=== PATIENT | female | born 2000 | race Hispanic/Latino ===

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

== ENCOUNTER 2024-10-23 05:59 | Emergency (ER) | payer OTHER, SELFPAY ==
--- OUTSIDE RECORDS SUMMARY | 2024-10-23 06:13 | XMS REPORT | Continuity of Care Document ---
Author Name Unknown Address [address] [facility] [address] [place] [address] [facility] [place] Address [address] [facility] [address] [place] [address] Care Team Providers Care Bog Cutter Name Role Phone Debbie Cuadra Primary Care Physicia n Betsey Hay MA Attending Clinician KE Kern Attending Clinician Unavail able Ke Mcgee Attending Clinician + Doctor Unassigned, [place] Attending Clinician U DEBBIE Lujan Attending Clinician CATHERINE Peters Attending Clinician Unav marcie Ramirez MD, Catherine Boggs Attending Clinician + Cam Gallagher MD Attending Clinician [phone] Janice EDMONDSON, Kaley Hansen Attending Clinicia n CELESTE CARTY Attending Clinician Unavailable Debbie Cuadra Attending Clinician + THU MONTIEL Attending Clinician Unavailable THU MONTIEL Attending Clinician Unavailable Ultrasound, [facility] Attending Clinician Unavaila ble Lab, [facility] Attending Clinician Unavailable Aster MSN, Corina Khan Attending Clinician [phone] [facility] Room Attending Clinician Unavailab Marcos MD, Ranjit Hamilton Attending Clinician [phone] CORINA REN Attending Clinician Jaqueline rand 2, [facility] Us Room Attending Clinician Octavio Olivia MD Attending Clinician [phone] OCTAVIO HARGROVE Attending Clinician Unavailable OCTAVIO HARGROVE Attending Clinician Unavailable VIET KHOURY Attending Clinician Unavailab rand Visit, [facility] Nurse Attending Clinician Unava ilViet Steward Attending Clinician + [phone] Po, [facility] Attending Clinician UnaMorelia Peters Attending Clinician [phone] MORELIA SANTIAGO Attending Clinician Unavailable Alexys Gallardo MD Attending Clinician [phone], [facility] Room Attending Clinician Cody Bartlett MD Attending Clinician [phone] Alexys Kim MD Attending Clinician + [phone] Raheem Dunn MD Attending Clinician + RAHEEM DUNN Attending Clinician UnaCODY Pedroza Attending Clinician Unavailable Lab, [facility] Attending Clinician Unavailable Salome Toavr Attending Clinician [phone], [facility] Room Attending Clinician Jonatan Plaza MD, Berenice Lugo Attending Clinician Katie Sparks MD Attending Clinician [phone] CATHERINE RAMIREZ Admitting Clinician UnaCatherine Mac MD Admitting Clinician + Alexys Gallardo MD Admitting Clinician [phone] Payers Payer Name Policy Type Policy Number Effective Date Expirati on Date Source [facility] [id number] 2019 00:00:00 Problems Condition Name Condition Details Condition Category Status Onset Date Resolution Date Last Treatment Date Treating Clinician Comments Source Nexplanon in place Nexplanon in place Disease Active 10-31 00:00: 00 [facility] Other general counseling and advice for contracept mat management Other general counseling and advice for contracept mat management Disease Active 2022-08 00:00: 00 [facility] Thrombocyt openia Thrombocyt openia Disease Active 2022-08 00:00: 00 [facility] Acute blood loss anemia Acute blood loss anemia Disease Active 2022-08 00:00: 00 [facility] Rubella equivocal status, antepartum Rubella equivocal status, antepartum Disease Active 2022-08 00:00: 00 [facility] Anemia of mother in , antepartum Anemia of mother in , antepartum Disease Active 08-10 00:00: 00 [facility] History of depression History of depression Disease Active 03-09 00:00: 00 Overview: Formattin g of this note might be different from the original. Reports d/c zoloft 02/20/19 [facility] Nausea and vomiting during Nausea and vomiting during Disease Active 03-09 00:00: 00 [facility] No known active problems No known active problems Disease [facility] Anemia, Anemia, Disease Resolve d 2022-08 00:00: 00 2023-09-09 00:00:00 2023-09-09 09:29:20 [facility] Obstetrica l laceration Obstetrica l laceration Disease Resolve d 2022-08 00:00: 00 2023-07-05 00:00:00 2023-07-05 10:29:17 [facility] Indication for care in labor or delivery Indication for care in labor or delivery Disease Resolve d 2022-08 00:00: 00 2023-07-05 00:00:00 2023-07-05 10:30:21 [facility] High-risk in third trimester High-risk in third trimester Disease Resolve d 2022-08 00:00: 00 2023-07-05 00:00:00 2023-07-05 10:30:28 [facility] 39 weeks gestation of 39 weeks gestation of Disease Resolve d 2022-08 00:00: 00 2023-07-05 00:00:00 2023-07-05 10:30:37 [facility] Anemia affecting in third trimester Anemia affecting in third trimester Disease Resolve d 2022-08 00:00: 00 2023-07-05 00:00:00 2023-07-05 10:30:35 [facility] History of gestationa l hypertensi on History of gestationa l hypertensi on Disease Resolve d 2022-08 00:00: 00 2023-07-05 00:00:00 2023-07-05 10:30:25 [facility] History of vacuum extraction assisted delivery History of vacuum extraction assisted delivery Disease Resolve d 2022-08 00:00: 00 2023-07-05 00:00:00 2023-07-05 10:30:23 [facility] (spontaneo us vaginal delivery) (spontaneo us vaginal delivery) Disease Resolve d 2020-0 3-16 00:00: 00 2023-07-05 00:00:00 2023-07-05 10:29:21 [facility] Single live Single live Disease Resolve d 2020-0 3-16 00:00: 00 2023-07-05 00:00:00 2023-07-05 10:30:14 [facility] Anemia of mother in , condition Anemia of mother in , condition Disease Resolve d 2020-0 4-30 00:00: 00 2023-02-07 00:00:00 2023-02-07 12:12:10 [facility] Well woman exam Well woman exam Disease Resolve d 2020-0 3-15 00:00: 00 2022-10-04 00:00:00 2022-10-04 10:16:46 [facility] Vacuum-ass isted vaginal delivery Vacuum-ass isted vaginal delivery Disease Resolve d 2020-0 3-16 00:00: 00 2019-12-03 00:00:00 2019-12-03 09:20:36 [facility] 39 weeks gestation of 39 weeks gestation of Disease Resolve d 2019-0 3-15 00:00: 00 2019-12-03 00:00:00 2019-12-03 09:20:04 [facility] Anemia of mother in , antepartum Anemia of mother in , antepartum Disease Resolve d 2019- 1-06 00:00: 00 2019-12-03 00:00:00 2019-12-03 09:20:22 [facility] Circumvall ate placenta Circumvall ate placenta Disease Resolve d 1-03 00:00: 00 2019-12-03 00:00:00 2019-12-03 09:20:24 Overview: Serial usg scheduled [facility] Primigravi da in second trimester Primigravi da in second trimester Disease Resolve d 2018- 0-29 00:00: 00 2019-12-03 00:00:00 2019-12-03 09:20:30 [facility] Supervisio n of high-risk Supervisio n of high-risk Disease Resolve d 2018- 8-05 00:00: 00 2019-12-03 00:00:00 2019-12-03 09:20:32 [facility] Footling breech presentati on Footling breech presentati on Disease Resolve d 2018- 2-12 00:00: 00 2019-10-19 00:00:00 2019-10-19 15:01:49 Overview: See usg report [facility] Nausea and vomiting during Nausea and vomiting during Disease Resolve d 2018- 8-05 00:00: 00 2019-10-19 00:00:00 2019-10-19 15:01:45 [facility] Allergies, Adverse Reactions, Alerts Allergy Name Allergy Type Status Severity Reaction(s) Onset Date Inactive Date Treating Clinician Comments Source NO KNOWN ALLERGIE S Drug Class Active [facility] Social History Social Habit Start Date Stop Date Quantity Comments Source ASSERTION 2022-09-13 00:00:00 [facility] Gender identity [facility] History SDOH Alcohol Binge [facility] History SDOH Alcohol Comment [facility] Alcohol intake 2023-11-01 00:00:00 2023-11-01 00:00:00 Ex-drinker (finding) [facility] History of Social function 2023-09-09 00:00:00 2023-09-09 00:00:00 [facility] Exposure to SARS-CoV-2 (event) 2022-12-17 00:00:00 2022-12-27 08:58:00 Not sure [facility] Alcoholic beverage intake 2022-11-29 00:00:00 2022-11-29 00:00:00 Ex-drinker (finding) [facility] Tobacco Comment 2022-10-04 00:00:00 2022-10-04 00:00:00 Denies smoking exposure [facility] Tobacco use and exposure 2022-10-04 00:00:00 2022-10-04 00:00:00 Smokeless tobacco non-user [facility] History SDOH Alcohol Frequency 2019-03-09 00:00:00 2019-03-09 00:00:00 1 [facility] Sex assigned at 2001 00:00:00 2000 00:00:00 [facility] Smoking Status Start Date Stop Date Source Never smoked tobacco [facility] Medications Ordered Medication Name Filled Medication Name Start Date Stop Date Current Medication? Ordering Clinician Indication Dosage Frequency Signature (SIG) Comments Components Source etonogestre L (NEXPLANON) implant 68 mg 14 18:15: 00 10-16 17:29 :00 No [id number] 68mg [facility] [id number] fum-folic () 27 mg iron- 1 mg folic tablet 2022-08 00:00: 00 Yes [id number] 1{tbl} Take 1 tablet by mouth in the morning. [facility] docusate 100 mg capsule 2022-08 00:00: 00 Yes [id number] 200mg Take 2 capsules by mouth once daily as needed for Constipati on. [facility] ferrous sulfate 325 mg (65 mg iron) tablet 2022-08 00:00: 00 Yes [id number] 325mg Take 1 tablet by mouth in the morning. [facility] ibuprofen 600 mg tablet 2022-08 00:00: 00 Yes [id number] 600mg Take 1 tablet by mouth every 6 (six) hours as needed (Pain). Take with food or milk. [facility] rho(D) immune globulin (RHOGAM) syringe 300 mcg 2022-08 20:16: 31 Yes 300ug 300 mcg, Intramuscu lar, ONCE, For 1 dose, Conditiona l, Routine [facility] ibuprofen (IBU) tablet 600 mg 2022-08 20:16: 24 Yes 600mg 600 mg, Oral, Q6HPRN, Starting on Alysa 06/06/23 at 1516, Until Discontinu ed, Routine, Pain (scale 4-6) [facility] acetaminoph en (TYLENOL) tablet 650 mg 2022-08 20:16: 24 Yes 650mg 650 mg, Oral, Q6HPRN, Starting on Alysa 06/06/23 at 1516, Until Discontinu ed, Routine, Pain (scale 1-3) [facility] diphenhydrA MINE (BENADRYL) tablet 25 mg 2022-08 20:16: 24 Yes 25mg 25 mg, Oral, Q6HPRN, Starting on Alysa 06/06/23 at 1516, Until Discontinu ed, Routine, Sleep, Itching [facility] ondansetron (ZOFRAN (PF)) injection 4 mg 2022-08 20:16: 24 Yes 4mg 4 mg, Slow IV Push, Q8HPRN, Starting on Alysa 06/06/23 at 1516, Until Discontinu ed, Routine, Nausea and Vomiting (N/V) [facility] simethicone (GAS RELIEF (SIMETHICON E)) chewable tablet 160 mg 2022-08 20:16: 23 Yes 160mg 160 mg, Oral, PC+HSPRN, Starting on Alysa 06/06/23 at 1516, Until Discontinu ed, Routine, Gas [facility] docusate (COLACE) capsule 200 mg 2022-08 20:16: 23 Yes 200mg 200 mg, Oral, QDAILYPRN, Starting on Sat06/06/23 at 1516, Until Discontinu ed, Routine, Constipati on [facility] magnesium hydroxide (MILK OF MAGNESIA) 400 mg/5 mL suspension 30 mL 2022-08 20:16: 23 Yes 30mL 30 mL, Oral, QDAILYPRN, Starting on Sat06/06/23 at 1516, Until Discontinu ed, Routine, Constipati on [facility] benzocaine- menthol (DERMOPLAST ) 20-0.5 % topical spray 2022-08 20:16: 23 Yes Topical, PRN, Starting on Sat06/06/23 at 1516, Until Discontinu ed, Routine, Perineum discomfort [facility] methylergon ovine (METHERGINE ) injection 0.2 mg 2022-08 18:30: 00 06-06 17:45 :00 No .2mg 0.2 mg, Intramuscu lar, ONCE NOW, 1 dose, On Sat06/06/23 at 1330, Routine [facility] oxytocin (PITOCIN) 30 units in NS 500 mL IV infusion 2022-08 14:29: 48 06-06 20:16 :30 No 600mL/h 600 mL/hr, IV Infusion, PRN, For post delivery uterine atony., Starting on Sat06/06/[address] at 600 mL/hr for 1 hr then 150 mL/hr for 1 hr.
[facility] ropivacaine 0.2 % (NAROPIN (PF)) epidural infusion 2022-08 06:13: 00 06-06 17:13 :10 No Epidural, CONTINUOUS PRN, Starting on Sat06/06/23 at 0113, Until Sat06/06/23 at 1213, Routine, Intra-op [facility] lidocaine-e pinephrine (XYLOCAINE W/EPINEPHRI NE) 1.5 %-1:200,000 injection 2022-08 06:13: 00 06-06 17:13 :10 No Intraderma l, ONCE INTRA PROCEDURE, Starting on Sat06/06/23 at 0113, Until Sat06/06/23 at 1213, Routine, Intra-op [facility] lactated ringers IV infusion 500 mL 2022-08 05:00: 00 06-06 05:17 :42 No 500mL at 999 mL/hr, 500 mL, IV Infusion, ONCE, 1 dose, On Sat06/06/23 at 0000, Routine [facility] lactated ringers IV infusion 500 mL 2022-08 04:01: 13 06-06 06:29 :08 No 500mL at 999 mL/hr, 500 mL, IV Infusion, PRN - SEE INSTRUCTIO NS, 1 dose, Starting on Sat06/05/23 at 2301, Until Alysa 06/06/23 at 0129, Routine [facility] sodium citrate-cit shani acid (BICITRA) 500-334 mg/5 mL solution 30 mL 2022-08 00:45: 50 06-06 05:59 :00 No 30mL 30 mL, Oral, PRE-PROCED URE ONCE, 1 dose, Starting on Sat06/05/23 at 1945, Until Discontinu ed, Routine, Surgery/Pr ocedure [facility] D5W-LR IV infusion 1,000 mL 2022-08 00:45: 50 06-06 20:16 :30 No 1000mL at 1-125 mL/hr, IV Infusion, TITRATE, Starting on Sat06/05/23 at 1945, Until Alysa 06/06/23 at 1516, Routine [facility] ferrous sulfate (IRON, FERROUS SULFATE,) 325 mg (65 mg iron) tablet 8-20 00:00: 00 06-07 00:00 :00 No [id number] 325mg Take 1 tablet by mouth in the morning. [facility] proMETHazin e 25 mg tablet 3-30 00:00: 00 06-07 00:00 :00 No [id number] 25mg Take 1 tablet by mouth every 4 (four) hours as needed for Nausea and Vomiting (N/V). [facility] vit 33-iron-fol ic-dha (SELECT-OB + DHA) 29 mg iron-1 mg -250 mg combo pack 10-04 00:00: 00 Yes [id number] 1{packe t} Take 1 Packet by mouth in the morning. [facility] vit 33-iron-fol ic-dha (SELECT-OB + DHA) 29 mg iron-1 mg -250 mg combo pack 10-04 00:00: 00 06-07 00:00 :00 No [id number] 1{packe t} Take 1 Packet by mouth in the morning. [facility] norgestimat e-ethinyl estradiol (ORTHO TRI-CYCLEN, 28,) 0.18/0.215/ 0.25 mg-35 mcg (28) tablet 14 00:00: 00 Yes [id number] 1{tbl} Take 1 tablet by mouth daily. [facility] benzonatate (TESSALON PERLES) 100 mg capsule 10-22 00:00: 00 11-02 04:59 :00 No [id number] 100mg Take 1 capsule by mouth 3 (three) times daily for 10 days. [facility] benzocaine- menthol (DERMOPLAST ) 20-0.5 % topical spray 10-18 02:40: 13 Yes Topical, PRN, Starting 10/18/19 at 2140, Until Discontinu ed, Routine, Wound care, Patient comfort [facility] rho(D) immune globulin (RHOGAM) syringe 300 mcg 10-18 02:19: 09 Yes 300ug 300 mcg, Intramuscu lar, ONCE, For 1 dose, Conditiona l, Routine [facility] HYDROcodone -acetaminop hen (NORCO 5) 5-325 mg tablet 2 tablet 16 02:19: 04 Yes 2{tbl} 2 tablet, Oral, Q6HPRN, Starting 10/18/19 at 2119, Until Discontinu ed, Routine, Pain (scale 7-10), If uncontroll ed by Ibuprofen [facility] ibuprofen (IBU) tablet 600 mg 10-18 02:19: 04 Yes 600mg 600 mg, Oral, Q6HPRN, Starting 10/18/19 at 2118, Until Discontinu ed, Routine, Pain (scale 1-3) [facility] ondansetron (ZOFRAN (PF)) injection 4 mg 10-18 02:19: 04 Yes 4mg 4 mg, Slow IV Push, Q8HPRN, Starting 10/18/19 at 2118, Until Discontinu ed, Routine, Nausea and Vomiting (N/V) [facility] simethicone (GAS RELIEF (SIMETHICON E)) chewable tablet 160 mg 10-18 02:19: 04 Yes 160mg 160 mg, Oral, PC+HSPRN, Starting Norris 10/18/19 at 2118, Until Discontinu ed, Routine, Gas [facility] magnesium hydroxide (MILK OF MAGNESIA) 400 mg/5 mL suspension 30 mL 10-18 02:19: 04 Yes 30mL 30 mL, Oral, QDAILYPRN, Starting 10/18/19 at 2118, Until Discontinu ed, Routine, Constipati on [facility] human papillomav vac,9-venancio(P F) (GARDASIL-9 ) syringe 0.5 mL 10-18 02:19: 03 Yes .5mL 0.5 mL, Intramuscu lar, ONCE-PRIOR TO DISCHARGE, 1 dose, Starting Norris 10/18/19 at 2118, Until Discontinu ed, Routine, Give vaccine prior to discharge [facility] HYDROcodone -acetaminop hen (NORCO 5) 5-325 mg tablet 1 tablet 10-18 02:19: 03 Yes 1{tbl} 1 tablet, Oral, Q6HPRN, Starting 10/18/19 at 2118, Until Discontinu ed, Routine, Pain (scale 4-6), If uncontroll ed by Ibuprofen [facility] diphenhydrA MINE-0.9 % sod.chlr (BENADRYL) 25 mg/50 mL piggyback 25 mg 10-18 02:19: 03 Yes 25mg 25 mg, IV Piggyback, Administer over 30 Minutes, Q6HPRN, 1 dose, Starting 10/18/19 at 2118, Until Discontinu ed, Routine, Itching [facility] diphenhydrA MINE (BENADRYL) tablet 25 mg 10-18 02:19: 03 Yes 25mg 25 mg, Oral, Q6HPRN, Starting Norris 10/18/19 at 2118, Until Discontinu ed, Routine, Sleep, Itching [facility] bisacodyL (DULCOLAX) suppository 10 mg 10-18 02:19: 03 Yes 10mg 10 mg, Rectal, QDAILYPRN, Starting 10/18/19 at 2118, Until Discontinu ed, Routine, Constipati on [facility] docusate calcium (SURFAK) capsule 240 mg 10-18 02:19: 03 Yes 240mg 240 mg, Oral, QDAILYPRN, Starting 10/18/19 at 2118, Until Discontinu ed, Routine, Constipati on [facility] vitamin w/FA tablet 10-18 00:00: 00 12-02 00:00 :00 No [id number] 1{tbl} Take 1 tablet by mouth daily. [facility] docusate calcium 240 mg capsule 10-18 00:00: 00 12-02 00:00 :00 No [id number] 240mg Take 1 capsule by mouth once daily as needed for Constipati on. [facility] ferrous sulfate 325 mg (65 mg iron) tablet 10-18 00:00: 00 12-02 00:00 :00 No [id number] 325mg Take 1 tablet by mouth 2 (two) times daily. [facility] ibuprofen 600 mg tablet 10-18 00:00: 00 12-02 00:00 :00 No [id number] 600mg Take 1 tablet by mouth every 6 (six) hours as needed (Pain). Take with food or milk. [facility] oxytocin (PITOCIN) 40 Units in lactated ringers 1,000 mL IV infusion 10-17 21:45: 00 10-17 20:15 :00 No at 999 mL/hr, IV Infusion, ONCE, 1 dose, 10/18/19 at 1645 [facility] D5W-LR IV infusion 1,000 mL 10-17 12:15: 00 10-18 02:19 :09 No 1000mL at 125 mL/hr, IV Infusion, CONTINUOUS , Starting 10/18/19 at 0715, Until Sat10/18/19 at 2118, Routine [facility] LR 1000 mL + oxytocin 20 units IV Solution 10-17 12:00: 58 10-18 02:19 :09 No 2mU/min 2 kaiden-unit s/min (6 mL/hr), at 6 mL/hr, IV Infusion, TITRATE, Starting 10/18/19 at 0700, Until Sat10/18/19 at 2118, SAPNA, Oxytocin induction. [facility] lactated ringers IV infusion 500 mL 10-17 11:59: 34 10-18 02:19 :09 No 500mL at 999 mL/hr, 500 mL, IV Infusion, PRN - SEE INSTRUCTIO NS, Starting Sat10/18/19 at 0659, Until Sat10/18/19 at 2118, Routine [facility] ferrous sulfate 325 mg (65 mg iron) tablet 08-10 00:00: 00 10-18 00:00 :00 No [id number] 325mg Take 1 tablet by mouth 2 (two) times daily. [facility] ascorbic acid, vitamin C, 500 mg tablet 08-10 00:00: 00 10-18 00:00 :00 No [id number] 500mg Take 1 tablet by mouth 3 (three) times daily. [facility] PNV 67-iron ps-folate no.1-dha (VITAFOL ULTRA) 29 mg iron- 1 mg-200 mg Cap 03-09 00:00: 00 10-18 00:00 :00 No [id number] 1{each} Take 1 Each by mouth daily. [facility] proMETHazin e 25 mg tablet 2019-0 8-05 00:00: 00 10-18 00:00 :00 No [id number] 25mg Take 1 tablet by mouth every 6 (six) hours as needed for Nausea and Vomiting (N/V). [facility] No known medications No Un omar [facility] Immunizations Ordered Immunization Name Filled Immunization Name Date Status Comments Source MMR 2023-11-01 12:45:00 Completed [facility] Meningococcal Polysaccharide (groups A, C, Y and W-135) conjugate vaccine (MCV4P) 2023-11-01 12:45:00 Completed [facility] Influenza Virus Vaccine Quad IM, Preserv and ABX Free 6 MO-64 YRS (FLUCELVAX) 2023-11-01 12:45:00 Completed [facility] DTAP 2023-11-01 12:45:00 Completed [facility] HIB 4 Dose Schedule 2023-11-01 12:45:00 Completed [facility] HEPATITIS A 2023-11-01 12:45:00 Completed [facility] Hep B, Adol or Pedi Dosage 2023-11-01 12:45:00 Completed [facility] Pneumococcal 7 Conjugate, PCV7 (Prevnar7) 2023-11-01 12:45:00 Completed [facility] Polio (IPV/OPV) 2023-11-01 12:45:00 Completed [facility] Varicella (varivax)(chicken pox) 2023-11-01 12:45:00 Completed [facility] HPV 2023-11-01 12:45:00 Completed [facility] TDAP 2023-11-01 12:45:00 Completed [facility] DTAP 2023-11-01 00:00:00 Completed [facility] HIB 4 Dose Schedule 2023-11-01 00:00:00 Completed [facility] HEPATITIS A 2023-11-01 00:00:00 Completed [facility] Hep B, Adol or Pedi Dosage 2023-11-01 00:00:00 Completed [facility] MMR 2023-11-01 00:00:00 Completed [facility] Pneumococcal 7 Conjugate, PCV7 (Prevnar7) 2023-11-01 00:00:00 Completed [facility] Polio (IPV/OPV) 2023-11-01 00:00:00 Completed [facility] Varicella (varivax)(chicken pox) 2023-11-01 00:00:00 Completed [facility] HPV 2023-11-01 00:00:00 Completed [facility] TDAP 2023-11-01 00:00:00 Completed [facility] Meningococcal Polysaccharide (groups A, C, Y and W-135) conjugate vaccine (MCV4P) 2023-11-01 00:00:00 Completed [facility] Influenza Virus Vaccine Quad IM, Preserv and ABX Free 6 MO-64 YRS (FLUCELVAX) 2023-11-01 00:00:00 Completed [facility] MMR 2023-10-17 10:45:00 Completed [facility] Meningococcal Polysaccharide (groups A, C, Y and W-135) conjugate vaccine (MCV4P) 2023-10-17 10:45:00 Completed [facility] Influenza Virus Vaccine Quad IM, Preserv and ABX Free 6 MO-64 YRS (FLUCELVAX) 2023-10-17 10:45:00 Completed [facility] DTAP 2023-10-17 10:45:00 Completed [facility] HIB 4 Dose Schedule 2023-10-17 10:45:00 Completed [facility] HEPATITIS A 2023-10-17 10:45:00 Completed [facility] Hep B, Adol or Pedi Dosage 2023-10-17 10:45:00 Completed [facility] Pneumococcal 7 Conjugate, PCV7 (Prevnar7) 2023-10-17 10:45:00 Completed [facility] Polio (IPV/OPV) 2023-10-17 10:45:00 Completed [facility] Varicella (varivax)(chicken pox) 2023-10-17 10:45:00 Completed [facility] HPV 2023-10-17 10:45:00 Completed [facility] TDAP 2023-10-17 10:45:00 Completed [facility] DTAP 2023-10-17 00:00:00 Completed [facility] HIB 4 Dose Schedule 2023-10-17 00:00:00 Completed [facility] HEPATITIS A 2023-10-17 00:00:00 Completed [facility] Hep B, Adol or Pedi Dosage 2023-10-17 00:00:00 Completed [facility] MMR 2023-10-17 00:00:00 Completed [facility] Pneumococcal 7 Conjugate, PCV7 (Prevnar7) 2023-10-17 00:00:00 Completed [facility] Polio (IPV/OPV) 2023-10-17 00:00:00 Completed [facility] Varicella (varivax)(chicken pox) 2023-10-17 00:00:00 Completed [facility] HPV 2023-10-17 00:00:00 Completed [facility] TDAP 2023-10-17 00:00:00 Completed [facility] Meningococcal Polysaccharide (groups A, C, Y and W-135) conjugate vaccine (MCV4P) 2023-10-17 00:00:00 Completed [facility] Influenza Virus Vaccine Quad IM, Preserv and ABX Free 6 MO-64 YRS (FLUCELVAX) 2023-10-17 00:00:00 Completed [facility] MMR 2023-10-02 12:45:00 Completed [facility] Meningococcal Polysaccharide (groups A, C, Y and W-135) conjugate vaccine (MCV4P) 2023-10-02 12:45:00 Completed [facility] Influenza Virus Vaccine Quad IM, Preserv and ABX Free 6 MO-64 YRS (FLUCELVAX) 2023-10-02 12:45:00 Completed [facility] DTAP 2023-10-02 12:45:00 Completed [facility] HIB 4 Dose Schedule 2023-10-02 12:45:00 Completed [facility] HEPATITIS A 2023-10-02 12:45:00 Completed [facility] Hep B, Adol or Pedi Dosage 2023-10-02 12:45:00 Completed [facility] Pneumococcal 7 Conjugate, PCV7 (Prevnar7) 2023-10-02 12:45:00 Completed [facility] Polio (IPV/OPV) 2023-10-02 12:45:00 Completed [facility] Varicella (varivax)(chicken pox) 2023-10-02 12:45:00 Completed [facility] TDAP 2023-10-02 12:45:00 Completed [facility] HPV 2023-10-02 12:45:00 Completed [facility] MMR 2023-09-09 08:30:00 Completed [facility] Meningococcal Polysaccharide (groups A, C, Y and W-135) conjugate vaccine (MCV4P) 2023-09-09 08:30:00 Completed [facility] Influenza Virus Vaccine Quad IM, Preserv and ABX Free 6 MO-64 YRS (FLUCELVAX) 2023-09-09 08:30:00 Completed [facility] DTAP 2023-09-09 08:30:00 Completed [facility] HIB 4 Dose Schedule 2023-09-09 08:30:00 Completed [facility] HEPATITIS A 2023-09-09 08:30:00 Completed [facility] Hep B, Adol or Pedi Dosage 2023-09-09 08:30:00 Completed [facility] Pneumococcal 7 Conjugate, PCV7 (Prevnar7) 2023-09-09 08:30:00 Completed [facility] Polio (IPV/OPV) 2023-09-09 08:30:00 Completed [facility] Varicella (varivax)(chicken pox) 2023-09-09 08:30:00 Completed [facility] HPV 2023-09-09 08:30:00 Completed [facility] TDAP 2023-09-09 08:30:00 Completed [facility] DTAP 2023-07-05 10:15:00 Completed [facility] HIB 4 Dose Schedule 2023-07-05 10:15:00 Completed [facility] HEPATITIS A 2023-07-05 10:15:00 Completed [facility] Hep B, Adol or Pedi Dosage 2023-07-05 10:15:00 Completed [facility] MMR 2023-07-05 10:15:00 Completed [facility] Pneumococcal 7 Conjugate, PCV7 (Prevnar7) 2023-07-05 10:15:00 Completed [facility] Polio (IPV/OPV) 2023-07-05 10:15:00 Completed [facility] Varicella (varivax)(chicken pox) 2023-07-05 10:15:00 Completed [facility] HPV 2023-07-05 10:15:00 Completed [facility] TDAP 2023-07-05 10:15:00 Completed [facility] Meningococcal Polysaccharide (groups A, C, Y and W-135) conjugate vaccine (MCV4P) 2023-07-05 10:15:00 Completed [facility] Influenza Virus Vaccine Quad IM, Preserv and ABX Free 6 MO-64 YRS (FLUCELVAX) 2023-07-05 10:15:00 Completed [facility] DTAP 2023-06-07 00:00:00 Completed [facility] HIB 4 Dose Schedule 2023-06-07 00:00:00 Completed [facility] HEPATITIS A 2023-06-07 00:00:00 Completed [facility] Hep B, Adol or Pedi Dosage 2023-06-07 00:00:00 Completed [facility] MMR 2023-06-07 00:00:00 Completed [facility] Pneumococcal 7 Conjugate, PCV7 (Prevnar7) 2023-06-07 00:00:00 Completed [facility] Polio (IPV/OPV) 2023-06-07 00:00:00 Completed [facility] Varicella (varivax)(chicken pox) 2023-06-07 00:00:00 Completed [facility] HPV 2023-06-07 00:00:00 Completed [facility] TDAP 2023-06-07 00:00:00 Completed [facility] Meningococcal Polysaccharide (groups A, C, Y and W-135) conjugate vaccine (MCV4P) 2023-06-07 00:00:00 Completed [facility] Influenza Virus Vaccine Quad IM, Preserv and ABX Free 6 MO-64 YRS (FLUCELVAX) 2023-06-07 00:00:00 Completed [facility] MMR 2023-06-06 01:04:00 Completed [facility] Meningococcal Polysaccharide (groups A, C, Y and W-135) conjugate vaccine (MCV4P) 2023-06-06 01:04:00 Completed [facility] Influenza Virus Vaccine Quad IM, Preserv and ABX Free 6 MO-64 YRS (FLUCELVAX) 2023-06-06 01:04:00 Completed [facility] DTAP 2023-06-06 01:04:00 Completed [facility] HIB 4 Dose Schedule 2023-06-06 01:04:00 Completed [facility] HEPATITIS A 2023-06-06 01:04:00 Completed [facility] Hep B, Adol or Pedi Dosage 2023-06-06 01:04:00 Completed [facility] Pneumococcal 7 Conjugate, PCV7 (Prevnar7) 2023-06-06 01:04:00 Completed [facility] Polio (IPV/OPV) 2023-06-06 01:04:00 Completed [facility] Varicella (varivax)(chicken pox) 2023-06-06 01:04:00 Completed [facility] TDAP 2023-06-06 01:04:00 Completed [facility] HPV 2023-06-06 01:04:00 Completed [facility] DTAP 2023-06-05 17:55:00 Completed [facility] HIB 4 Dose Schedule 2023-06-05 17:55:00 Completed [facility] HEPATITIS A 2023-06-05 17:55:00 Completed [facility] Hep B, Adol or Pedi Dosage 2023-06-05 17:55:00 Completed [facility] MMR 2023-06-05 17:55:00 Completed [facility] Pneumococcal 7 Conjugate, PCV7 (Prevnar7) 2023-06-05 17:55:00 Completed [facility] Polio (IPV/OPV) 2023-06-05 17:55:00 Completed [facility] Varicella (varivax)(chicken pox) 2023-06-05 17:55:00 Completed [facility] HPV 2023-06-05 17:55:00 Completed [facility] TDAP 2023-06-05 17:55:00 Completed [facility] Meningococcal Polysaccharide (groups A, C, Y and W-135) conjugate vaccine (MCV4P) 2023-06-05 17:55:00 Completed [facility] Influenza Virus Vaccine Quad IM, Preserv and ABX Free 6 MO-64 YRS (FLUCELVAX) 2023-06-05 17:55:00 Completed [facility] DTAP 2023-05-31 09:00:00 Completed [facility] HIB 4 Dose Schedule 2023-05-31 09:00:00 Completed [facility] HEPATITIS A 2023-05-31 09:00:00 Completed [facility] Hep B, Adol or Pedi Dosage 2023-05-31 09:00:00 Completed [facility] MMR 2023-05-31 09:00:00 Completed [facility] Pneumococcal 7 Conjugate, PCV7 (Prevnar7) 2023-05-31 09:00:00 Completed [facility] Polio (IPV/OPV) 2023-05-31 09:00:00 Completed [facility] Varicella (varivax)(chicken pox) 2023-05-31 09:00:00 Completed [facility] HPV 2023-05-31 09:00:00 Completed [facility] Meningococcal Polysaccharide (groups A, C, Y and W-135) conjugate vaccine (MCV4P) 2023-05-31 09:00:00 Completed [facility] TDAP 2023-05-31 09:00:00 Completed [facility] Influenza Virus Vaccine Quad IM, Preserv and ABX Free 6 MO-64 YRS (FLUCELVAX) 2023-05-31 09:00:00 Completed [facility] DTAP 2023-05-24 09:00:00 Completed [facility] HIB 4 Dose Schedule 2023-05-24 09:00:00 Completed [facility] HEPATITIS A 2023-05-24 09:00:00 Completed [facility] Hep B, Adol or Pedi Dosage 2023-05-24 09:00:00 Completed [facility] MMR 2023-05-24 09:00:00 Completed [facility] Pneumococcal 7 Conjugate, PCV7 (Prevnar7) 2023-05-24 09:00:00 Completed [facility] Polio (IPV/OPV) 2023-05-24 09:00:00 Completed [facility] Varicella (varivax)(chicken pox) 2023-05-24 09:00:00 Completed [facility] HPV 2023-05-24 09:00:00 Completed [facility] Meningococcal Polysaccharide (groups A, C, Y and W-135) conjugate vaccine (MCV4P) 2023-05-24 09:00:00 Completed [facility] TDAP 2023-05-24 09:00:00 Completed [facility] Influenza Virus Vaccine Quad IM, Preserv and ABX Free 6 MO-64 YRS (FLUCELVAX) 2023-05-24 09:00:00 Completed [facility] DTAP 2023-05-16 09:15:00 Completed [facility] HIB 4 Dose Schedule 2023-05-16 09:15:00 Completed [facility] HEPATITIS A 2023-05-16 09:15:00 Completed [facility] Hep B, Adol or Pedi Dosage 2023-05-16 09:15:00 Completed [facility] MMR 2023-05-16 09:15:00 Completed [facility] Pneumococcal 7 Conjugate, PCV7 (Prevnar7) 2023-05-16 09:15:00 Completed [facility] Polio (IPV/OPV) 2023-05-16 09:15:00 Completed [facility] Varicella (varivax)(chicken pox) 2023-05-16 09:15:00 Completed [facility] HPV 2023-05-16 09:15:00 Completed [facility] Meningococcal Polysaccharide (groups A, C, Y and W-135) conjugate vaccine (MCV4P) 2023-05-16 09:15:00 Completed [facility] TDAP 2023-05-16 09:15:00 Completed [facility] DTAP 2023-05-09 09:15:00 Completed [facility] HIB 4 Dose Schedule 2023-05-09 09:15:00 Completed [facility] HEPATITIS A 2023-05-09 09:15:00 Completed [facility] Hep B, Adol or Pedi Dosage 2023-05-09 09:15:00 Completed [facility] MMR 2023-05-09 09:15:00 Completed [facility] Pneumococcal 7 Conjugate, PCV7 (Prevnar7) 2023-05-09 09:15:00 Completed [facility] Polio (IPV/OPV) 2023-05-09 09:15:00 Completed [facility] Varicella (varivax)(chicken pox) 2023-05-09 09:15:00 Completed [facility] HPV 2023-05-09 09:15:00 Completed [facility] Meningococcal Polysaccharide (groups A, C, Y and W-135) conjugate vaccine (MCV4P) 2023-05-09 09:15:00 Completed [facility] TDAP 2023-05-09 09:15:00 Completed [facility] DTAP 2023-05-02 15:45:00 Completed [facility] HIB 4 Dose Schedule 2023-05-02 15:45:00 Completed [facility] HEPATITIS A 2023-05-02 15:45:00 Completed [facility] Hep B, Adol or Pedi Dosage 2023-05-02 15:45:00 Completed [facility] MMR 2023-05-02 15:45:00 Completed [facility] Pneumococcal 7 Conjugate, PCV7 (Prevnar7) 2023-05-02 15:45:00 Completed [facility] Polio (IPV/OPV) 2023-05-02 15:45:00 Completed [facility] Varicella (varivax)(chicken pox) 2023-05-02 15:45:00 Completed [facility] HPV 2023-05-02 15:45:00 Completed [facility] Meningococcal Polysaccharide (groups A, C, Y and W-135) conjugate vaccine (MCV4P) 2023-05-02 15:45:00 Completed [facility] TDAP 2023-05-02 15:45:00 Completed [facility] TDAP 2023-03-21 00:00:00 Completed [facility] TDAP 2023-03-21 00:00:00 Completed [facility] TDAP 2023-03-21 00:00:00 Completed [facility] TDAP 2023-03-21 00:00:00 Completed [facility] TDAP 2019 00:00:00 Completed [facility] TDAP 2019 00:00:00 Completed [facility] TDAP 2019 00:00:00 Completed [facility] TDAP 2019 00:00:00 Completed [facility] TDAP 2019 00:00:00 Completed [facility] TDAP 2019 00:00:00 Completed [facility] TDAP 2019 00:00:00 Completed [facility] TDAP 2019 00:00:00 Completed [facility] TDAP 2019 00:00:00 Completed [facility] TDAP 2019 00:00:00 Completed [facility] TDAP 2019 00:00:00 Completed [facility] TDAP 2019 00:00:00 Completed [facility] TDAP 2019 00:00:00 Completed [facility] TDAP 2019 00:00:00 Completed [facility] TDAP 2019 00:00:00 Completed [facility] TDAP 2019 00:00:00 Completed [facility] TDAP 2019 00:00:00 Completed [facility] TDAP 2019 00:00:00 Completed [facility] TDAP 2019 00:00:00 Completed [facility] TDAP 2019 00:00:00 Completed [facility] Tdap 2019 00:00:00 Completed [facility] Tdap 2019 00:00:00 Completed [facility] TDAP 2019 00:00:00 Completed [facility] Tdap 2019 00:00:00 Completed [facility] Tdap 2019 00:00:00 Completed [facility] Tdap 2019 00:00:00 Completed [facility] Tdap 2019 00:00:00 Completed [facility] Tdap 2019 00:00:00 Completed [facility] Tdap 2019 00:00:00 Completed [facility] Tdap 2019 00:00:00 Completed [facility] Tdap 2019 00:00:00 Completed [facility] Tdap 2019 00:00:00 Completed [facility] Tdap 2019 00:00:00 Completed [facility] Tdap 2019 00:00:00 Completed [facility] Tdap 2019 00:00:00 Completed [facility] HPV 2014-03-29 00:00:00 Completed [facility] HPV 2013-02-04 00:00:00 Completed [facility] TDAP 2013-02-04 00:00:00 Completed [facility] Meningococcal Polysaccharide (groups A, C, Y and W-135) conjugate vaccine (MCV4P) 2013-02-04 00:00:00 Completed [facility] HPV 2013-02-04 00:00:00 Completed [facility] TDAP 2013-02-04 00:00:00 Completed [facility] Meningococcal Polysaccharide (groups A, C, Y and W-135) conjugate vaccine (MCV4P) 2013-02-04 00:00:00 Completed [facility] HPV 2013-02-04 00:00:00 Completed [facility] TDAP 2013-02-04 00:00:00 Completed [facility] Meningococcal Polysaccharide (groups A, C, Y and W-135) conjugate vaccine (MCV4P) 2013-02-04 00:00:00 Completed [facility] HPV 2013-02-04 00:00:00 Completed [facility] Tdap 2013-02-04 00:00:00 Completed [facility] HPV 2013-02-04 00:00:00 Completed [facility] TDAP 2013-02-04 00:00:00 Completed [facility] Meningococcal Polysaccharide (groups A, C, Y and W-135) conjugate vaccine (MCV4P) 2013-02-04 00:00:00 Completed [facility] Meningococcal Polysaccharide (groups A, C, Y and W-135) conjugate vaccine (MCV4P) 2013-02-04 00:00:00 Completed [facility] HPV 2013-02-04 00:00:00 Completed [facility] TDAP 2013-02-04 00:00:00 Completed [facility] Meningococcal Polysaccharide (groups A, C, Y and W-135) conjugate vaccine (MCV4P) 2013-02-04 00:00:00 Completed [facility] HPV 2013-02-04 00:00:00 Completed [facility] TDAP 2013-02-04 00:00:00 Completed [facility] Meningococcal Polysaccharide (groups A, C, Y and W-135) conjugate vaccine (MCV4P) 2013-02-04 00:00:00 Completed [facility] HPV 2013-02-04 00:00:00 Completed [facility] TDAP 2013-02-04 00:00:00 Completed [facility] Meningococcal Polysaccharide (groups A, C, Y and W-135) conjugate vaccine (MCV4P) 2013-02-04 00:00:00 Completed [facility] HPV 2013-02-04 00:00:00 Completed [facility] TDAP 2013-02-04 00:00:00 Completed [facility] Meningococcal Polysaccharide (groups A, C, Y and W-135) conjugate vaccine (MCV4P) 2013-02-04 00:00:00 Completed [facility] HPV 2013-02-04 00:00:00 Completed [facility] Tdap 2013-02-04 00:00:00 Completed [facility] Meningococcal Polysaccharide (groups A, C, Y and W-135) conjugate vaccine (MCV4P) 2013-02-04 00:00:00 Completed [facility] HPV 2013-02-04 00:00:00 Completed [facility] TDAP 2013-02-04 00:00:00 Completed [facility] Meningococcal Polysaccharide (groups A, C, Y and W-135) conjugate vaccine (MCV4P) 2013-02-04 00:00:00 Completed [facility] HPV 2013-02-04 00:00:00 Completed [facility] TDAP 2013-02-04 00:00:00 Completed [facility] Meningococcal Polysaccharide (groups A, C, Y and W-135) conjugate vaccine (MCV4P) 2013-02-04 00:00:00 Completed [facility] HPV 2013-02-04 00:00:00 Completed [facility] TDAP 2013-02-04 00:00:00 Completed [facility] Meningococcal Polysaccharide (groups A, C, Y and W-135) conjugate vaccine (MCV4P) 2013-02-04 00:00:00 Completed [facility] HPV 2013-02-04 00:00:00 Completed [facility] TDAP 2013-02-04 00:00:00 Completed [facility] Meningococcal Polysaccharide (groups A, C, Y and W-135) conjugate vaccine (MCV4P) 2013-02-04 00:00:00 Completed [facility] HPV 2013-02-04 00:00:00 Completed [facility] TDAP 2013-02-04 00:00:00 Completed [facility] Meningococcal Polysaccharide (groups A, C, Y and W-135) conjugate vaccine (MCV4P) 2013-02-04 00:00:00 Completed [facility] HPV 2013-02-04 00:00:00 Completed [facility] TDAP 2013-02-04 00:00:00 Completed [facility] Meningococcal Polysaccharide (groups A, C, Y and W-135) conjugate vaccine (MCV4P) 2013-02-04 00:00:00 Completed [facility] HPV 2013-02-04 00:00:00 Completed [facility] Tdap 2013-02-04 00:00:00 Completed [facility] Meningococcal Polysaccharide (groups A, C, Y and W-135) conjugate vaccine (MCV4P) 2013-02-04 00:00:00 Completed [facility] HPV 2013-02-04 00:00:00 Completed [facility] TDAP 2013-02-04 00:00:00 Completed [facility] Meningococcal Polysaccharide (groups A, C, Y and W-135) conjugate vaccine (MCV4P) 2013-02-04 00:00:00 Completed [facility] HPV 2013-02-04 00:00:00 Completed [facility] TDAP 2013-02-04 00:00:00 Completed [facility] Meningococcal Polysaccharide (groups A, C, Y and W-135) conjugate vaccine (MCV4P) 2013-02-04 00:00:00 Completed [facility] HPV 2013-02-04 00:00:00 Completed [facility] TDAP 2013-02-04 00:00:00 Completed [facility] Meningococcal Polysaccharide (groups A, C, Y and W-135) conjugate vaccine (MCV4P) 2013-02-04 00:00:00 Completed [facility] HPV 2013-02-04 00:00:00 Completed [facility] TDAP 2013-02-04 00:00:00 Completed [facility] Meningococcal Polysaccharide (groups A, C, Y and W-135) conjugate vaccine (MCV4P) 2013-02-04 00:00:00 Completed [facility] HPV 2013-02-04 00:00:00 Completed [facility] TDAP 2013-02-04 00:00:00 Completed [facility] Meningococcal Polysaccharide (groups A, C, Y and W-135) conjugate vaccine (MCV4P) 2013-02-04 00:00:00 Completed [facility] HPV 2013-02-04 00:00:00 Completed [facility] TDAP 2013-02-04 00:00:00 Completed [facility] Meningococcal Polysaccharide (groups A, C, Y and W-135) conjugate vaccine (MCV4P) 2013-02-04 00:00:00 Completed [facility] HPV 2013-02-04 00:00:00 Completed [facility] Tdap 2013-02-04 00:00:00 Completed [facility] Meningococcal Polysaccharide (groups A, C, Y and W-135) conjugate vaccine (MCV4P) 2013-02-04 00:00:00 Completed [facility] HPV 2013-02-04 00:00:00 Completed [facility] Tdap 2013-02-04 00:00:00 Completed [facility] Meningococcal Polysaccharide (groups A, C, Y and W-135) conjugate vaccine (MCV4P) 2013-02-04 00:00:00 Completed [facility] HPV 2013-02-04 00:00:00 Completed [facility] Tdap 2013-02-04 00:00:00 Completed [facility] Meningococcal Polysaccharide (groups A, C, Y and W-135) conjugate vaccine (MCV4P) 2013-02-04 00:00:00 Completed [facility] HPV 2013-02-04 00:00:00 Completed TDAP 2013-02-04 00:00:00 Completed Meningococcal Polysaccharide (groups A, C, Y and W-135) conjugate vaccine (MCV4P) 2013-02-04 00:00:00 Completed HPV 2013-02-04 00:00:00 Completed [facility] Tdap 2013-02-04 00:00:00 Completed [facility] HPV 2013-02-04 00:00:00 Completed [facility] Tdap 2013-02-04 00:00:00 Completed [facility] Meningococcal Polysaccharide (groups A, C, Y and W-135) conjugate vaccine (MCV4P) 2013-02-04 00:00:00 Completed [facility] Meningococcal Polysaccharide (groups A, C, Y and W-135) conjugate vaccine (MCV4P) 2013-02-04 00:00:00 Completed [facility] HPV 2013-02-04 00:00:00 Completed [facility] Tdap 2013-02-04 00:00:00 Completed [facility] Meningococcal Polysaccharide (groups A, C, Y and W-135) conjugate vaccine (MCV4P) 2013-02-04 00:00:00 Completed [facility] HPV 2013-02-04 00:00:00 Completed [facility] Tdap 2013-02-04 00:00:00 Completed [facility] Meningococcal Polysaccharide (groups A, C, Y and W-135) conjugate vaccine (MCV4P) 2013-02-04 00:00:00 Completed [facility] HPV 2013-02-04 00:00:00 Completed [facility] Tdap 2013-02-04 00:00:00 Completed [facility] Meningococcal Polysaccharide (groups A, C, Y and W-135) conjugate vaccine (MCV4P) 2013-02-04 00:00:00 Completed [facility] HPV 2013-02-04 00:00:00 Completed [facility] Tdap 2013-02-04 00:00:00 Completed [facility] Meningococcal Polysaccharide (groups A, C, Y and W-135) conjugate vaccine (MCV4P) 2013-02-04 00:00:00 Completed [facility] HPV 2013-02-04 00:00:00 Completed [facility] Tdap 2013-02-04 00:00:00 Completed [facility] Meningococcal Polysaccharide (groups A, C, Y and W-135) conjugate vaccine (MCV4P) 2013-02-04 00:00:00 Completed [facility] HPV 2013-02-04 00:00:00 Completed [facility] Tdap 2013-02-04 00:00:00 Completed [facility] Meningococcal Polysaccharide (groups A, C, Y and W-135) conjugate vaccine (MCV4P) 2013-02-04 00:00:00 Completed [facility] HPV 2013-02-04 00:00:00 Completed [facility] Tdap 2013-02-04 00:00:00 Completed [facility] Meningococcal Polysaccharide (groups A, C, Y and W-135) conjugate vaccine (MCV4P) 2013-02-04 00:00:00 Completed [facility] HPV 2013-02-04 00:00:00 Completed [facility] Tdap 2013-02-04 00:00:00 Completed [facility] Meningococcal Polysaccharide (groups A, C, Y and W-135) conjugate vaccine (MCV4P) 2013-02-04 00:00:00 Completed [facility] HPV 2013-02-04 00:00:00 Completed [facility] Tdap 2013-02-04 00:00:00 Completed [facility] Meningococcal Polysaccharide (groups A, C, Y and W-135) conjugate vaccine (MCV4P) 2013-02-04 00:00:00 Completed [facility] HPV 2013-02-04 00:00:00 Completed [facility] Tdap 2013-02-04 00:00:00 Completed [facility] Meningococcal Polysaccharide (groups A, C, Y and W-135) conjugate vaccine (MCV4P) 2013-02-04 00:00:00 Completed [facility] HPV 2013-02-04 00:00:00 Completed [facility] Tdap 2013-02-04 00:00:00 Completed [facility] Meningococcal Polysaccharide (groups A, C, Y and W-135) conjugate vaccine (MCV4P) 2013-02-04 00:00:00 Completed [facility] HPV 2013-02-04 00:00:00 Completed [facility] Tdap 2013-02-04 00:00:00 Completed [facility] Meningococcal Polysaccharide (groups A, C, Y and W-135) conjugate vaccine (MCV4P) 2013-02-04 00:00:00 Completed [facility] HEPATITIS A 2011-01-12 00:00:00 Completed [facility] HEPATITIS A 2011-01-12 00:00:00 Completed [facility] Varicella (varivax)(chicken pox) 2011-01-12 00:00:00 Completed [facility] HEPATITIS A 2011-01-12 00:00:00 Completed [facility] Varicella (varivax)(chicken pox) 2011-01-12 00:00:00 Completed [facility] HEPATITIS A 2011-01-12 00:00:00 Completed [facility] Varicella (varivax)(chicken pox) 2011-01-12 00:00:00 Completed [facility] Varicella (varivax)(chicken pox) 2011-01-12 00:00:00 Completed [facility] HEPATITIS A 2011-01-12 00:00:00 Completed [facility] Varicella (varivax)(chicken pox) 2011-01-12 00:00:00 Completed [facility] HEPATITIS A 2011-01-12 00:00:00 Completed [facility] Varicella (varivax)(chicken pox) 2011-01-12 00:00:00 Completed [facility] HEPATITIS A 2011-01-12 00:00:00 Completed [facility] Varicella (varivax)(chicken pox) 2011-01-12 00:00:00 Completed [facility] HEPATITIS A 2011-01-12 00:00:00 Completed [facility] Varicella (varivax)(chicken pox) 2011-01-12 00:00:00 Completed [facility] HEPATITIS A 2011-01-12 00:00:00 Completed [facility] HEPATITIS A 2011-01-12 00:00:00 Completed [facility] Varicella (varivax)(chicken pox) 2011-01-12 00:00:00 Completed [facility] Varicella (varivax)(chicken pox) 2011-01-12 00:00:00 Completed [facility] HEPATITIS A 2011-01-12 00:00:00 Completed [facility] Varicella (varivax)(chicken pox) 2011-01-12 00:00:00 Completed [facility] HEPATITIS A 2011-01-12 00:00:00 Completed [facility] Varicella (varivax)(chicken pox) 2011-01-12 00:00:00 Completed [facility] HEPATITIS A 2011-01-12 00:00:00 Completed [facility] Varicella (varivax)(chicken pox) 2011-01-12 00:00:00 Completed [facility] HEPATITIS A 2011-01-12 00:00:00 Completed [facility] HEPATITIS A 2011-01-12 00:00:00 Completed [facility] Varicella (varivax)(chicken pox) 2011-01-12 00:00:00 Completed [facility] HEPATITIS A 2011-01-12 00:00:00 Completed [facility] Varicella (varivax)(chicken pox) 2011-01-12 00:00:00 Completed [facility] HEPATITIS A 2011-01-12 00:00:00 Completed [facility] HEPATITIS A 2011-01-12 00:00:00 Completed [facility] Varicella (varivax)(chicken pox) 2011-01-12 00:00:00 Completed [facility] Varicella (varivax)(chicken pox) 2011-01-12 00:00:00 Completed [facility] HEPATITIS A 2011-01-12 00:00:00 Completed [facility] Varicella (varivax)(chicken pox) 2011-01-12 00:00:00 Completed [facility] HEPATITIS A 2011-01-12 00:00:00 Completed [facility] Varicella (varivax)(chicken pox) 2011-01-12 00:00:00 Completed [facility] HEPATITIS A 2011-01-12 00:00:00 Completed [facility] Varicella (varivax)(chicken pox) 2011-01-12 00:00:00 Completed [facility] HEPATITIS A 2011-01-12 00:00:00 Completed [facility] Varicella (varivax)(chicken pox) 2011-01-12 00:00:00 Completed [facility] HEPATITIS A 2011-01-12 00:00:00 Completed [facility] HEPATITIS A 2011-01-12 00:00:00 Completed [facility] Varicella (varivax)(chicken pox) 2011-01-12 00:00:00 Completed [facility] HEPATITIS A 2011-01-12 00:00:00 Completed [facility] Varicella (varivax)(chicken pox) 2011-01-12 00:00:00 Completed [facility] Varicella (varivax)(chicken pox) 2011-01-12 00:00:00 Completed [facility] HEPATITIS A 2011-01-12 00:00:00 Completed [facility] Varicella (varivax)(chicken pox) 2011-01-12 00:00:00 Completed [facility] HEPATITIS A 2011-01-12 00:00:00 Completed [facility] Varicella (varivax)(chicken pox) 2011-01-12 00:00:00 Completed [facility] Varicella (varivax)(chicken pox) 2011-01-12 00:00:00 Completed [facility] HEPATITIS A 2011-01-12 00:00:00 Completed Varicella (varivax)(chicken pox) 2011-01-12 00:00:00 Completed HEPATITIS A 2011-01-12 00:00:00 Completed [facility] Varicella (varivax)(chicken pox) 2011-01-12 00:00:00 Completed [facility] HEPATITIS A 2011-01-12 00:00:00 Completed [facility] Varicella (varivax)(chicken pox) 2011-01-12 00:00:00 Completed [facility] HEPATITIS A 2011-01-12 00:00:00 Completed [facility] Varicella (varivax)(chicken pox) 2011-01-12 00:00:00 Completed [facility] HEPATITIS A 2011-01-12 00:00:00 Completed [facility] Varicella (varivax)(chicken pox) 2011-01-12 00:00:00 Completed [facility] HEPATITIS A 2011-01-12 00:00:00 Completed [facility] Varicella (varivax)(chicken pox) 2011-01-12 00:00:00 Completed [facility] HEPATITIS A 2011-01-12 00:00:00 Completed [facility] Varicella (varivax)(chicken pox) 2011-01-12 00:00:00 Completed [facility] HEPATITIS A 2011-01-12 00:00:00 Completed [facility] HEPATITIS A 2011-01-12 00:00:00 Completed [facility] Varicella (varivax)(chicken pox) 2011-01-12 00:00:00 Completed [facility] HEPATITIS A 2011-01-12 00:00:00 Completed [facility] Varicella (varivax)(chicken pox) 2011-01-12 00:00:00 Completed [facility] Varicella (varivax)(chicken pox) 2011-01-12 00:00:00 Completed [facility] HEPATITIS A 2011-01-12 00:00:00 Completed [facility] Varicella (varivax)(chicken pox) 2011-01-12 00:00:00 Completed [facility] HEPATITIS A 2011-01-12 00:00:00 Completed [facility] Varicella (varivax)(chicken pox) 2011-01-12 00:00:00 Completed [facility] HEPATITIS A 2011-01-12 00:00:00 Completed [facility] Varicella (varivax)(chicken pox) 2011-01-12 00:00:00 Completed [facility] HEPATITIS A 2011-01-12 00:00:00 Completed [facility] Varicella (varivax)(chicken pox) 2011-01-12 00:00:00 Completed [facility] HEPATITIS A 2006-05-02 00:00:00 Completed [facility] HEPATITIS A 2006-05-02 00:00:00 Completed [facility] HEPATITIS A 2006-05-02 00:00:00 Completed [facility] HEPATITIS A 2006-05-02 00:00:00 Completed [facility] HEPATITIS A 2006-05-02 00:00:00 Completed [facility] HEPATITIS A 2006-05-02 00:00:00 Completed [facility] HEPATITIS A 2006-05-02 00:00:00 Completed [facility] HEPATITIS A 2006-05-02 00:00:00 Completed [facility] HEPATITIS A 2006-05-02 00:00:00 Completed [facility] HEPATITIS A 2006-05-02 00:00:00 Completed [facility] HEPATITIS A 2006-05-02 00:00:00 Completed [facility] HEPATITIS A 2006-05-02 00:00:00 Completed [facility] HEPATITIS A 2006-05-02 00:00:00 Completed [facility] HEPATITIS A 2006-05-02 00:00:00 Completed [facility] HEPATITIS A 2006-05-02 00:00:00 Completed [facility] HEPATITIS A 2006-05-02 00:00:00 Completed [facility] HEPATITIS A 2006-05-02 00:00:00 Completed [facility] HEPATITIS A 2006-05-02 00:00:00 Completed [facility] HEPATITIS A 2006-05-02 00:00:00 Completed [facility] HEPATITIS A 2006-05-02 00:00:00 Completed [facility] HEPATITIS A 2006-05-02 00:00:00 Completed [facility] HEPATITIS A 2006-05-02 00:00:00 Completed [facility] HEPATITIS A 2006-05-02 00:00:00 Completed [facility] HEPATITIS A 2006-05-02 00:00:00 Completed [facility] HEPATITIS A 2006-05-02 00:00:00 Completed [facility] HEPATITIS A 2006-05-02 00:00:00 Completed [facility] HEPATITIS A 2006-05-02 00:00:00 Completed HEPATITIS A 2006-05-02 00:00:00 Completed [facility] HEPATITIS A 2006-05-02 00:00:00 Completed [facility] HEPATITIS A 2006-05-02 00:00:00 Completed [facility] HEPATITIS A 2006-05-02 00:00:00 Completed [facility] HEPATITIS A 2006-05-02 00:00:00 Completed [facility] HEPATITIS A 2006-05-02 00:00:00 Completed [facility] HEPATITIS A 2006-05-02 00:00:00 Completed [facility] HEPATITIS A 2006-05-02 00:00:00 Completed [facility] HEPATITIS A 2006-05-02 00:00:00 Completed [facility] HEPATITIS A 2006-05-02 00:00:00 Completed [facility] HEPATITIS A 2006-05-02 00:00:00 Completed [facility] HEPATITIS A 2006-05-02 00:00:00 Completed [facility] HEPATITIS A 2006-05-02 00:00:00 Completed [facility] HEPATITIS A 2006-05-02 00:00:00 Completed [facility] Pneumococcal 7 Conjugate, PCV7 (Prevnar7) 2003-01-13 00:00:00 Completed [facility] DTAP 2003-01-13 00:00:00 Completed [facility] Pneumococcal 7 Conjugate, PCV7 (Prevnar7) 2003-01-13 00:00:00 Completed [facility] DTAP 2003-01-13 00:00:00 Completed [facility] Pneumococcal 7 Conjugate, PCV7 (Prevnar7) 2003-01-13 00:00:00 Completed [facility] Pneumococcal 7 Conjugate, PCV7 (Prevnar7) 2003-01-13 00:00:00 Completed [facility] DTAP 2003-01-13 00:00:00 Completed [facility] DTAP 2003-01-13 00:00:00 Completed [facility] Pneumococcal 7 Conjugate, PCV7 (Prevnar7) 2003-01-13 00:00:00 Completed [facility] DTAP 2003-01-13 00:00:00 Completed [facility] Pneumococcal 7 Conjugate, PCV7 (Prevnar7) 2003-01-13 00:00:00 Completed [facility] DTAP 2003-01-13 00:00:00 Completed [facility] Pneumococcal 7 Conjugate, PCV7 (Prevnar7) 2003-01-13 00:00:00 Completed [facility] DTAP 2003-01-13 00:00:00 Completed [facility] DTAP 2003-01-13 00:00:00 Completed [facility] Pneumococcal 7 Conjugate, PCV7 (Prevnar7) 2003-01-13 00:00:00 Completed [facility] DTAP 2003-01-13 00:00:00 Completed [facility] Pneumococcal 7 Conjugate, PCV7 (Prevnar7) 2003-01-13 00:00:00 Completed [facility] Pneumococcal 7 Conjugate, PCV7 (Prevnar7) 2003-01-13 00:00:00 Completed [facility] DTAP 2003-01-13 00:00:00 Completed [facility] Pneumococcal 7 Conjugate, PCV7 (Prevnar7) 2003-01-13 00:00:00 Completed [facility] DTAP 2003-01-13 00:00:00 Completed [facility] DTAP 2003-01-13 00:00:00 Completed [facility] Pneumococcal 7 Conjugate, PCV7 (Prevnar7) 2003-01-13 00:00:00 Completed [facility] DTAP 2003-01-13 00:00:00 Completed [facility] Pneumococcal 7 Conjugate, PCV7 (Prevnar7) 2003-01-13 00:00:00 Completed [facility] DTAP 2003-01-13 00:00:00 Completed [facility] Pneumococcal 7 Conjugate, PCV7 (Prevnar7) 2003-01-13 00:00:00 Completed [facility] DTAP 2003-01-13 00:00:00 Completed [facility] Pneumococcal 7 Conjugate, PCV7 (Prevnar7) 2003-01-13 00:00:00 Completed [facility] Pneumococcal 7 Conjugate, PCV7 (Prevnar7) 2003-01-13 00:00:00 Completed [facility] DTAP 2003-01-13 00:00:00 Completed [facility] Pneumococcal 7 Conjugate, PCV7 (Prevnar7) 2003-01-13 00:00:00 Completed [facility] DTAP 2003-01-13 00:00:00 Completed [facility] Pneumococcal 7 Conjugate, PCV7 (Prevnar7) 2003-01-13 00:00:00 Completed [facility] DTAP 2003-01-13 00:00:00 Completed [facility] Pneumococcal 7 Conjugate, PCV7 (Prevnar7) 2003-01-13 00:00:00 Completed [facility] DTAP 2003-01-13 00:00:00 Completed [facility] Pneumococcal 7 Conjugate, PCV7 (Prevnar7) 2003-01-13 00:00:00 Completed [facility] DTAP 2003-01-13 00:00:00 Completed [facility] DTAP 2003-01-13 00:00:00 Completed [facility] Pneumococcal 7 Conjugate, PCV7 (Prevnar7) 2003-01-13 00:00:00 Completed [facility] DTAP 2003-01-13 00:00:00 Completed [facility] Pneumococcal 7 Conjugate, PCV7 (Prevnar7) 2003-01-13 00:00:00 Completed [facility] DTAP 2003-01-13 00:00:00 Completed [facility] Pneumococcal 7 Conjugate, PCV7 (Prevnar7) 2003-01-13 00:00:00 Completed [facility] Pneumococcal 7 Conjugate, PCV7 (Prevnar7) 2003-01-13 00:00:00 Completed [facility] DTAP 2003-01-13 00:00:00 Completed [facility] Pneumococcal 7 Conjugate, PCV7 (Prevnar7) 2003-01-13 00:00:00 Completed [facility] Pneumococcal 7 Conjugate, PCV7 (Prevnar7) 2003-01-13 00:00:00 Completed [facility] DTAP 2003-01-13 00:00:00 Completed [facility] Pneumococcal 7 Conjugate, PCV7 (Prevnar7) 2003-01-13 00:00:00 Completed [facility] DTAP 2003-01-13 00:00:00 Completed Pneumococcal 7 Conjugate, PCV7 (Prevnar7) 2003-01-13 00:00:00 Completed DTAP 2003-01-13 00:00:00 Completed [facility] Pneumococcal 7 Conjugate, PCV7 (Prevnar7) 2003-01-13 00:00:00 Completed [facility] DTAP 2003-01-13 00:00:00 Completed [facility] Pneumococcal 7 Conjugate, PCV7 (Prevnar7) 2003-01-13 00:00:00 Completed [facility] DTAP 2003-01-13 00:00:00 Completed [facility] Pneumococcal 7 Conjugate, PCV7 (Prevnar7) 2003-01-13 00:00:00 Completed [facility] DTAP 2003-01-13 00:00:00 Completed [facility] Pneumococcal 7 Conjugate, PCV7 (Prevnar7) 2003-01-13 00:00:00 Completed [facility] DTAP 2003-01-13 00:00:00 Completed [facility] Pneumococcal 7 Conjugate, PCV7 (Prevnar7) 2003-01-13 00:00:00 Completed [facility] DTAP 2003-01-13 00:00:00 Completed [facility] DTAP 2003-01-13 00:00:00 Completed [facility] Pneumococcal 7 Conjugate, PCV7 (Prevnar7) 2003-01-13 00:00:00 Completed [facility] DTAP 2003-01-13 00:00:00 Completed [facility] Pneumococcal 7 Conjugate, PCV7 (Prevnar7) 2003-01-13 00:00:00 Completed [facility] DTAP 2003-01-13 00:00:00 Completed [facility] Pneumococcal 7 Conjugate, PCV7 (Prevnar7) 2003-01-13 00:00:00 Completed [facility] Pneumococcal 7 Conjugate, PCV7 (Prevnar7) 2003-01-13 00:00:00 Completed [facility] DTAP 2003-01-13 00:00:00 Completed [facility] Pneumococcal 7 Conjugate, PCV7 (Prevnar7) 2003-01-13 00:00:00 Completed [facility] DTAP 2003-01-13 00:00:00 Completed [facility] Pneumococcal 7 Conjugate, PCV7 (Prevnar7) 2003-01-13 00:00:00 Completed [facility] DTAP 2003-01-13 00:00:00 Completed [facility] Pneumococcal 7 Conjugate, PCV7 (Prevnar7) 2003-01-13 00:00:00 Completed [facility] DTAP 2003-01-13 00:00:00 Completed [facility] Pneumococcal 7 Conjugate, PCV7 (Prevnar7) 2003-01-13 00:00:00 Completed [facility] DTAP 2003-01-13 00:00:00 Completed [facility] DTAP 2003-01-13 00:00:00 Completed [facility] MMR 2002-10-05 00:00:00 Completed [facility] Pneumococcal 7 Conjugate, PCV7 (Prevnar7) 2002-10-05 00:00:00 Completed [facility] Varicella (varivax)(chicken pox) 2002-10-05 00:00:00 Completed [facility] HIB 4 Dose Schedule 2002-10-05 00:00:00 Completed [facility] MMR 2002-10-05 00:00:00 Completed [facility] MMR 2002-10-05 00:00:00 Completed [facility] Pneumococcal 7 Conjugate, PCV7 (Prevnar7) 2002-10-05 00:00:00 Completed [facility] Varicella (varivax)(chicken pox) 2002-10-05 00:00:00 Completed [facility] Pneumococcal 7 Conjugate, PCV7 (Prevnar7) 2002-10-05 00:00:00 Completed [facility] HIB 4 Dose Schedule 2002-10-05 00:00:00 Completed [facility] MMR 2002-10-05 00:00:00 Completed [facility] Pneumococcal 7 Conjugate, PCV7 (Prevnar7) 2002-10-05 00:00:00 Completed [facility] Varicella (varivax)(chicken pox) 2002-10-05 00:00:00 Completed [facility] Varicella (varivax)(chicken pox) 2002-10-05 00:00:00 Completed [facility] HIB 4 Dose Schedule 2002-10-05 00:00:00 Completed [facility] MMR 2002-10-05 00:00:00 Completed [facility] Pneumococcal 7 Conjugate, PCV7 (Prevnar7) 2002-10-05 00:00:00 Completed [facility] Varicella (varivax)(chicken pox) 2002-10-05 00:00:00 Completed [facility] HIB 4 Dose Schedule 2002-10-05 00:00:00 Completed [facility] MMR 2002-10-05 00:00:00 Completed [facility] Pneumococcal 7 Conjugate, PCV7 (Prevnar7) 2002-10-05 00:00:00 Completed [facility] Varicella (varivax)(chicken pox) 2002-10-05 00:00:00 Completed [facility] HIB 4 Dose Schedule 2002-10-05 00:00:00 Completed [facility] MMR 2002-10-05 00:00:00 Completed [facility] Pneumococcal 7 Conjugate, PCV7 (Prevnar7) 2002-10-05 00:00:00 Completed [facility] Varicella (varivax)(chicken pox) 2002-10-05 00:00:00 Completed [facility] HIB 4 Dose Schedule 2002-10-05 00:00:00 Completed [facility] MMR 2002-10-05 00:00:00 Completed [facility] Pneumococcal 7 Conjugate, PCV7 (Prevnar7) 2002-10-05 00:00:00 Completed [facility] Varicella (varivax)(chicken pox) 2002-10-05 00:00:00 Completed [facility] HIB 4 Dose Schedule 2002-10-05 00:00:00 Completed [facility] HIB 4 Dose Schedule 2002-10-05 00:00:00 Completed [facility] MMR 2002-10-05 00:00:00 Completed [facility] Pneumococcal 7 Conjugate, PCV7 (Prevnar7) 2002-10-05 00:00:00 Completed [facility] Varicella (varivax)(chicken pox) 2002-10-05 00:00:00 Completed [facility] MMR 2002-10-05 00:00:00 Completed [facility] Pneumococcal 7 Conjugate, PCV7 (Prevnar7) 2002-10-05 00:00:00 Completed [facility] Varicella (varivax)(chicken pox) 2002-10-05 00:00:00 Completed [facility] HIB 4 Dose Schedule 2002-10-05 00:00:00 Completed [facility] HIB 4 Dose Schedule 2002-10-05 00:00:00 Completed [facility] MMR 2002-10-05 00:00:00 Completed [facility] Pneumococcal 7 Conjugate, PCV7 (Prevnar7) 2002-10-05 00:00:00 Completed [facility] Varicella (varivax)(chicken pox) 2002-10-05 00:00:00 Completed [facility] HIB 4 Dose Schedule 2002-10-05 00:00:00 Completed [facility] MMR 2002-10-05 00:00:00 Completed [facility] Pneumococcal 7 Conjugate, PCV7 (Prevnar7) 2002-10-05 00:00:00 Completed [facility] Varicella (varivax)(chicken pox) 2002-10-05 00:00:00 Completed [facility] HIB 4 Dose Schedule 2002-10-05 00:00:00 Completed [facility] MMR 2002-10-05 00:00:00 Completed [facility] Pneumococcal 7 Conjugate, PCV7 (Prevnar7) 2002-10-05 00:00:00 Completed [facility] HIB 4 Dose Schedule 2002-10-05 00:00:00 Completed [facility] Varicella (varivax)(chicken pox) 2002-10-05 00:00:00 Completed [facility] HIB 4 Dose Schedule 2002-10-05 00:00:00 Completed [facility] MMR 2002-10-05 00:00:00 Completed [facility] Pneumococcal 7 Conjugate, PCV7 (Prevnar7) 2002-10-05 00:00:00 Completed [facility] Varicella (varivax)(chicken pox) 2002-10-05 00:00:00 Completed [facility] MMR 2002-10-05 00:00:00 Completed [facility] HIB 4 Dose Schedule 2002-10-05 00:00:00 Completed [facility] MMR 2002-10-05 00:00:00 Completed [facility] Pneumococcal 7 Conjugate, PCV7 (Prevnar7) 2002-10-05 00:00:00 Completed [facility] Pneumococcal 7 Conjugate, PCV7 (Prevnar7) 2002-10-05 00:00:00 Completed [facility] Varicella (varivax)(chicken pox) 2002-10-05 00:00:00 Completed [facility] HIB 4 Dose Schedule 2002-10-05 00:00:00 Completed [facility] MMR 2002-10-05 00:00:00 Completed [facility] Pneumococcal 7 Conjugate, PCV7 (Prevnar7) 2002-10-05 00:00:00 Completed [facility] Varicella (varivax)(chicken pox) 2002-10-05 00:00:00 Completed [facility] Varicella (varivax)(chicken pox) 2002-10-05 00:00:00 Completed [facility] HIB 4 Dose Schedule 2002-10-05 00:00:00 Completed [facility] MMR 2002-10-05 00:00:00 Completed [facility] [facility] Pneumococcal 7 Conjugate, PCV7 (Prevnar7) 2002-10-05 00:00:00 Completed [facility] Varicella (varivax)(chicken pox) 2002-10-05 00:00:00 Completed [facility] HIB 4 Dose Schedule 2002-10-05 00:00:00 Completed [facility] MMR 2002-10-05 00:00:00 Completed [facility] Pneumococcal 7 Conjugate, PCV7 (Prevnar7) 2002-10-05 00:00:00 Completed [facility] Varicella (varivax)(chicken pox) 2002-10-05 00:00:00 Completed [facility] HIB 4 Dose Schedule 2002-10-05 00:00:00 Completed [facility] MMR 2002-10-05 00:00:00 Completed [facility] Pneumococcal 7 Conjugate, PCV7 (Prevnar7) 2002-10-05 00:00:00 Completed [facility] Varicella (varivax)(chicken pox) 2002-10-05 00:00:00 Completed [facility] HIB 4 Dose Schedule 2002-10-05 00:00:00 Completed [facility] MMR 2002-10-05 00:00:00 Completed [facility] Pneumococcal 7 Conjugate, PCV7 (Prevnar7) 2002-10-05 00:00:00 Completed [facility] Varicella (varivax)(chicken pox) 2002-10-05 00:00:00 Completed [facility] HIB 4 Dose Schedule 2002-10-05 00:00:00 Completed [facility] HIB 4 Dose Schedule 2002-10-05 00:00:00 Completed [facility] MMR 2002-10-05 00:00:00 Completed [facility] Pneumococcal 7 Conjugate, PCV7 (Prevnar7) 2002-10-05 00:00:00 Completed [facility] Varicella (varivax)(chicken pox) 2002-10-05 00:00:00 Completed [facility] MMR 2002-10-05 00:00:00 Completed [facility] HIB 4 Dose Schedule 2002-10-05 00:00:00 Completed [facility] MMR 2002-10-05 00:00:00 Completed [facility] Pneumococcal 7 Conjugate, PCV7 (Prevnar7) 2002-10-05 00:00:00 Completed [facility] Varicella (varivax)(chicken pox) 2002-10-05 00:00:00 Completed [facility] Pneumococcal 7 Conjugate, PCV7 (Prevnar7) 2002-10-05 00:00:00 Completed [facility] Varicella (varivax)(chicken pox) 2002-10-05 00:00:00 Completed [facility] MMR 2002-10-05 00:00:00 Completed [facility] HIB 4 Dose Schedule 2002-10-05 00:00:00 Completed [facility] MMR 2002-10-05 00:00:00 Completed [facility] Pneumococcal 7 Conjugate, PCV7 (Prevnar7) 2002-10-05 00:00:00 Completed [facility] Pneumococcal 7 Conjugate, PCV7 (Prevnar7) 2002-10-05 00:00:00 Completed [facility] Varicella (varivax)(chicken pox) 2002-10-05 00:00:00 Completed [facility] HIB 4 Dose Schedule 2002-10-05 00:00:00 Completed [facility] MMR 2002-10-05 00:00:00 Completed [facility] Pneumococcal 7 Conjugate, PCV7 (Prevnar7) 2002-10-05 00:00:00 Completed [facility] Varicella (varivax)(chicken pox) 2002-10-05 00:00:00 Completed [facility] Varicella (varivax)(chicken pox) 2002-10-05 00:00:00 Completed [facility] HIB 4 Dose Schedule 2002-10-05 00:00:00 Completed MMR 2002-10-05 00:00:00 Completed Pneumococcal 7 Conjugate, PCV7 (Prevnar7) 2002-10-05 00:00:00 Completed Varicella (varivax)(chicken pox) 2002-10-05 00:00:00 Completed HIB 4 Dose Schedule 2002-10-05 00:00:00 Completed [facility] MMR 2002-10-05 00:00:00 Completed [facility] Pneumococcal 7 Conjugate, PCV7 (Prevnar7) 2002-10-05 00:00:00 Completed [facility] Varicella (varivax)(chicken pox) 2002-10-05 00:00:00 Completed [facility] HIB 4 Dose Schedule 2002-10-05 00:00:00 Completed [facility] MMR 2002-10-05 00:00:00 Completed [facility] Pneumococcal 7 Conjugate, PCV7 (Prevnar7) 2002-10-05 00:00:00 Completed [facility] Varicella (varivax)(chicken pox) 2002-10-05 00:00:00 Completed [facility] HIB 4 Dose Schedule 2002-10-05 00:00:00 Completed [facility] MMR 2002-10-05 00:00:00 Completed [facility] Pneumococcal 7 Conjugate, PCV7 (Prevnar7) 2002-10-05 00:00:00 Completed [facility] Varicella (varivax)(chicken pox) 2002-10-05 00:00:00 Completed [facility] HIB 4 Dose Schedule 2002-10-05 00:00:00 Completed [facility] MMR 2002-10-05 00:00:00 Completed [facility] Pneumococcal 7 Conjugate, PCV7 (Prevnar7) 2002-10-05 00:00:00 Completed [facility] Varicella (varivax)(chicken pox) 2002-10-05 00:00:00 Completed [facility] HIB 4 Dose Schedule 2002-10-05 00:00:00 Completed [facility] MMR 2002-10-05 00:00:00 Completed [facility] Pneumococcal 7 Conjugate, PCV7 (Prevnar7) 2002-10-05 00:00:00 Completed [facility] Varicella (varivax)(chicken pox) 2002-10-05 00:00:00 Completed [facility] HIB 4 Dose Schedule 2002-10-05 00:00:00 Completed [facility] MMR 2002-10-05 00:00:00 Completed [facility] HIB 4 Dose Schedule 2002-10-05 00:00:00 Completed [facility] Pneumococcal 7 Conjugate, PCV7 (Prevnar7) 2002-10-05 00:00:00 Completed [facility] Varicella (varivax)(chicken pox) 2002-10-05 00:00:00 Completed [facility] MMR 2002-10-05 00:00:00 Completed [facility] HIB 4 Dose Schedule 2002-10-05 00:00:00 Completed [facility] MMR 2002-10-05 00:00:00 Completed [facility] Pneumococcal 7 Conjugate, PCV7 (Prevnar7) 2002-10-05 00:00:00 Completed [facility] Varicella (varivax)(chicken pox) 2002-10-05 00:00:00 Completed [facility] Pneumococcal 7 Conjugate, PCV7 (Prevnar7) 2002-10-05 00:00:00 Completed [facility] HIB 4 Dose Schedule 2002-10-05 00:00:00 Completed [facility] MMR 2002-10-05 00:00:00 Completed [facility] Pneumococcal 7 Conjugate, PCV7 (Prevnar7) 2002-10-05 00:00:00 Completed [facility] Varicella (varivax)(chicken pox) 2002-10-05 00:00:00 Completed [facility] Varicella (varivax)(chicken pox) 2002-10-05 00:00:00 Completed [facility] HIB 4 Dose Schedule 2002-10-05 00:00:00 Completed [facility] MMR 2002-10-05 00:00:00 Completed [facility] Pneumococcal 7 Conjugate, PCV7 (Prevnar7) 2002-10-05 00:00:00 Completed [facility] Varicella (varivax)(chicken pox) 2002-10-05 00:00:00 Completed [facility] HIB 4 Dose Schedule 2002-10-05 00:00:00 Completed [facility] MMR 2002-10-05 00:00:00 Completed [facility] Pneumococcal 7 Conjugate, PCV7 (Prevnar7) 2002-10-05 00:00:00 Completed [facility] Varicella (varivax)(chicken pox) 2002-10-05 00:00:00 Completed [facility] HIB 4 Dose Schedule 2002-10-05 00:00:00 Completed [facility] MMR 2002-10-05 00:00:00 Completed [facility] Pneumococcal 7 Conjugate, PCV7 (Prevnar7) 2002-10-05 00:00:00 Completed [facility] Varicella (varivax)(chicken pox) 2002-10-05 00:00:00 Completed [facility] HIB 4 Dose Schedule 2002-10-05 00:00:00 Completed [facility] MMR 2002-10-05 00:00:00 Completed [facility] Pneumococcal 7 Conjugate, PCV7 (Prevnar7) 2002-10-05 00:00:00 Completed [facility] Varicella (varivax)(chicken pox) 2002-10-05 00:00:00 Completed [facility] HIB 4 Dose Schedule 2002-10-05 00:00:00 Completed [facility] HIB 4 Dose Schedule 2002-10-05 00:00:00 Completed [facility] Hep B, Adol or Pedi Dosage 2002-05-27 00:00:00 Completed [facility] Pneumococcal 7 Conjugate, PCV7 (Prevnar7) 2002-05-27 00:00:00 Completed [facility] Polio (IPV/OPV) 2002-05-27 00:00:00 Completed [facility] Hep B, Adol or Pedi Dosage 2002-05-27 00:00:00 Completed [facility] Hep B, Adol or Pedi Dosage 2002-05-27 00:00:00 Completed [facility] Pneumococcal 7 Conjugate, PCV7 (Prevnar7) 2002-05-27 00:00:00 Completed [facility] Polio (IPV/OPV) 2002-05-27 00:00:00 Completed [facility] Pneumococcal 7 Conjugate, PCV7 (Prevnar7) 2002-05-27 00:00:00 Completed [facility] Hep B, Adol or Pedi Dosage 2002-05-27 00:00:00 Completed [facility] Pneumococcal 7 Conjugate, PCV7 (Prevnar7) 2002-05-27 00:00:00 Completed [facility] Polio (IPV/OPV) 2002-05-27 00:00:00 Completed [facility] Polio (IPV/OPV) 2002-05-27 00:00:00 Completed [facility] Hep B, Adol or Pedi Dosage 2002-05-27 00:00:00 Completed [facility] Pneumococcal 7 Conjugate, PCV7 (Prevnar7) 2002-05-27 00:00:00 Completed [facility] Polio (IPV/OPV) 2002-05-27 00:00:00 Completed [facility] Hep B, Adol or Pedi Dosage 2002-05-27 00:00:00 Completed [facility] Pneumococcal 7 Conjugate, PCV7 (Prevnar7) 2002-05-27 00:00:00 Completed [facility] Polio (IPV/OPV) 2002-05-27 00:00:00 Completed [facility] Hep B, Adol or Pedi Dosage 2002-05-27 00:00:00 Completed [facility] Pneumococcal 7 Conjugate, PCV7 (Prevnar7) 2002-05-27 00:00:00 Completed [facility] Polio (IPV/OPV) 2002-05-27 00:00:00 Completed [facility] Hep B, Adol or Pedi Dosage 2002-05-27 00:00:00 Completed [facility] Pneumococcal 7 Conjugate, PCV7 (Prevnar7) 2002-05-27 00:00:00 Completed [facility] Polio (IPV/OPV) 2002-05-27 00:00:00 Completed [facility] Hep B, Adol or Pedi Dosage 2002-05-27 00:00:00 Completed [facility] Pneumococcal 7 Conjugate, PCV7 (Prevnar7) 2002-05-27 00:00:00 Completed [facility] Polio (IPV/OPV) 2002-05-27 00:00:00 Completed [facility] Hep B, Adol or Pedi Dosage 2002-05-27 00:00:00 Completed [facility] Pneumococcal 7 Conjugate, PCV7 (Prevnar7) 2002-05-27 00:00:00 Completed [facility] Polio (IPV/OPV) 2002-05-27 00:00:00 Completed [facility] Hep B, Adol or Pedi Dosage 2002-05-27 00:00:00 Completed [facility] Pneumococcal 7 Conjugate, PCV7 (Prevnar7) 2002-05-27 00:00:00 Completed [facility] Polio (IPV/OPV) 2002-05-27 00:00:00 Completed [facility] Hep B, Adol or Pedi Dosage 2002-05-27 00:00:00 Completed [facility] Pneumococcal 7 Conjugate, PCV7 (Prevnar7) 2002-05-27 00:00:00 Completed [facility] Polio (IPV/OPV) 2002-05-27 00:00:00 Completed [facility] Hep B, Adol or Pedi Dosage 2002-05-27 00:00:00 Completed [facility] Pneumococcal 7 Conjugate, PCV7 (Prevnar7) 2002-05-27 00:00:00 Completed [facility] Polio (IPV/OPV) 2002-05-27 00:00:00 Completed [facility] Hep B, Adol or Pedi Dosage 2002-05-27 00:00:00 Completed [facility] Pneumococcal 7 Conjugate, PCV7 (Prevnar7) 2002-05-27 00:00:00 Completed [facility] Hep B, Adol or Pedi Dosage 2002-05-27 00:00:00 Completed [facility] Polio (IPV/OPV) 2002-05-27 00:00:00 Completed [facility] Pneumococcal 7 Conjugate, PCV7 (Prevnar7) 2002-05-27 00:00:00 Completed [facility] Hep B, Adol or Pedi Dosage 2002-05-27 00:00:00 Completed [facility] Pneumococcal 7 Conjugate, PCV7 (Prevnar7) 2002-05-27 00:00:00 Completed [facility] Polio (IPV/OPV) 2002-05-27 00:00:00 Completed [facility] Hep B, Adol or Pedi Dosage 2002-05-27 00:00:00 Completed [facility] Pneumococcal 7 Conjugate, PCV7 (Prevnar7) 2002-05-27 00:00:00 Completed [facility] Polio (IPV/OPV) 2002-05-27 00:00:00 Completed [facility] Polio (IPV/OPV) 2002-05-27 00:00:00 Completed [facility] Hep B, Adol or Pedi Dosage 2002-05-27 00:00:00 Completed [facility] Pneumococcal 7 Conjugate, PCV7 (Prevnar7) 2002-05-27 00:00:00 Completed [facility] Polio (IPV/OPV) 2002-05-27 00:00:00 Completed [facility] Hep B, Adol or Pedi Dosage 2002-05-27 00:00:00 Completed [facility] Pneumococcal 7 Conjugate, PCV7 (Prevnar7) 2002-05-27 00:00:00 Completed [facility] Polio (IPV/OPV) 2002-05-27 00:00:00 Completed [facility] Hep B, Adol or Pedi Dosage 2002-05-27 00:00:00 Completed [facility] Pneumococcal 7 Conjugate, PCV7 (Prevnar7) 2002-05-27 00:00:00 Completed [facility] Polio (IPV/OPV) 2002-05-27 00:00:00 Completed [facility] Hep B, Adol or Pedi Dosage 2002-05-27 00:00:00 Completed [facility] Pneumococcal 7 Conjugate, PCV7 (Prevnar7) 2002-05-27 00:00:00 Completed [facility] Polio (IPV/OPV) 2002-05-27 00:00:00 Completed [facility] Hep B, Adol or Pedi Dosage 2002-05-27 00:00:00 Completed [facility] Pneumococcal 7 Conjugate, PCV7 (Prevnar7) 2002-05-27 00:00:00 Completed [facility] Polio (IPV/OPV) 2002-05-27 00:00:00 Completed [facility] Hep B, Adol or Pedi Dosage 2002-05-27 00:00:00 Completed [facility] Hep B, Adol or Pedi Dosage 2002-05-27 00:00:00 Completed [facility] Hep B, Adol or Pedi Dosage 2002-05-27 00:00:00 Completed [facility] Pneumococcal 7 Conjugate, PCV7 (Prevnar7) 2002-05-27 00:00:00 Completed [facility] Pneumococcal 7 Conjugate, PCV7 (Prevnar7) 2002-05-27 00:00:00 Completed [facility] Polio (IPV/OPV) 2002-05-27 00:00:00 Completed [facility] Polio (IPV/OPV) 2002-05-27 00:00:00 Completed [facility] Pneumococcal 7 Conjugate, PCV7 (Prevnar7) 2002-05-27 00:00:00 Completed [facility] Hep B, Adol or Pedi Dosage 2002-05-27 00:00:00 Completed [facility] Pneumococcal 7 Conjugate, PCV7 (Prevnar7) 2002-05-27 00:00:00 Completed [facility] Polio (IPV/OPV) 2002-05-27 00:00:00 Completed [facility] Hep B, Adol or Pedi Dosage 2002-05-27 00:00:00 Completed [facility] Polio (IPV/OPV) 2002-05-27 00:00:00 Completed [facility] Pneumococcal 7 Conjugate, PCV7 (Prevnar7) 2002-05-27 00:00:00 Completed [facility] Polio (IPV/OPV) 2002-05-27 00:00:00 Completed [facility] Hep B, Adol or Pedi Dosage 2002-05-27 00:00:00 Completed Pneumococcal 7 Conjugate, PCV7 (Prevnar7) 2002-05-27 00:00:00 Completed Polio (IPV/OPV) 2002-05-27 00:00:00 Completed Hep B, Adol or Pedi Dosage 2002-05-27 00:00:00 Completed [facility] Pneumococcal 7 Conjugate, PCV7 (Prevnar7) 2002-05-27 00:00:00 Completed [facility] Polio (IPV/OPV) 2002-05-27 00:00:00 Completed [facility] Hep B, Adol or Pedi Dosage 2002-05-27 00:00:00 Completed [facility] Pneumococcal 7 Conjugate, PCV7 (Prevnar7) 2002-05-27 00:00:00 Completed [facility] Polio (IPV/OPV) 2002-05-27 00:00:00 Completed [facility] Hep B, Adol or Pedi Dosage 2002-05-27 00:00:00 Completed [facility] Pneumococcal 7 Conjugate, PCV7 (Prevnar7) 2002-05-27 00:00:00 Completed [facility] Polio (IPV/OPV) 2002-05-27 00:00:00 Completed [facility] Hep B, Adol or Pedi Dosage 2002-05-27 00:00:00 Completed [facility] Pneumococcal 7 Conjugate, PCV7 (Prevnar7) 2002-05-27 00:00:00 Completed [facility] Polio (IPV/OPV) 2002-05-27 00:00:00 Completed [facility] Hep B, Adol or Pedi Dosage 2002-05-27 00:00:00 Completed [facility] Pneumococcal 7 Conjugate, PCV7 (Prevnar7) 2002-05-27 00:00:00 Completed [facility] Polio (IPV/OPV) 2002-05-27 00:00:00 Completed [facility] Hep B, Adol or Pedi Dosage 2002-05-27 00:00:00 Completed [facility] Pneumococcal 7 Conjugate, PCV7 (Prevnar7) 2002-05-27 00:00:00 Completed [facility] Polio (IPV/OPV) 2002-05-27 00:00:00 Completed [facility] Hep B, Adol or Pedi Dosage 2002-05-27 00:00:00 Completed [facility] Hep B, Adol or Pedi Dosage 2002-05-27 00:00:00 Completed [facility] Pneumococcal 7 Conjugate, PCV7 (Prevnar7) 2002-05-27 00:00:00 Completed [facility] Polio (IPV/OPV) 2002-05-27 00:00:00 Completed [facility] Pneumococcal 7 Conjugate, PCV7 (Prevnar7) 2002-05-27 00:00:00 Completed [facility] Hep B, Adol or Pedi Dosage 2002-05-27 00:00:00 Completed [facility] Pneumococcal 7 Conjugate, PCV7 (Prevnar7) 2002-05-27 00:00:00 Completed [facility] Polio (IPV/OPV) 2002-05-27 00:00:00 Completed [facility] Polio (IPV/OPV) 2002-05-27 00:00:00 Completed [facility] Hep B, Adol or Pedi Dosage 2002-05-27 00:00:00 Completed [facility] Pneumococcal 7 Conjugate, PCV7 (Prevnar7) 2002-05-27 00:00:00 Completed [facility] Polio (IPV/OPV) 2002-05-27 00:00:00 Completed [facility] Hep B, Adol or Pedi Dosage 2002-05-27 00:00:00 Completed [facility] Pneumococcal 7 Conjugate, PCV7 (Prevnar7) 2002-05-27 00:00:00 Completed [facility] Polio (IPV/OPV) 2002-05-27 00:00:00 Completed [facility] Hep B, Adol or Pedi Dosage 2002-05-27 00:00:00 Completed [facility] Pneumococcal 7 Conjugate, PCV7 (Prevnar7) 2002-05-27 00:00:00 Completed [facility] Polio (IPV/OPV) 2002-05-27 00:00:00 Completed [facility] Hep B, Adol or Pedi Dosage 2002-05-27 00:00:00 Completed [facility] Pneumococcal 7 Conjugate, PCV7 (Prevnar7) 2002-05-27 00:00:00 Completed [facility] Polio (IPV/OPV) 2002-05-27 00:00:00 Completed [facility] DTAP 2002-03-12 00:00:00 Completed [facility] DTAP 2002-03-12 00:00:00 Completed [facility] HIB 4 Dose Schedule 2002-03-12 00:00:00 Completed [facility] DTAP 2002-03-12 00:00:00 Completed [facility] HIB 4 Dose Schedule 2002-03-12 00:00:00 Completed [facility] DTAP 2002-03-12 00:00:00 Completed [facility] HIB 4 Dose Schedule 2002-03-12 00:00:00 Completed [facility] DTAP 2002-03-12 00:00:00 Completed [facility] HIB 4 Dose Schedule 2002-03-12 00:00:00 Completed [facility] DTAP 2002-03-12 00:00:00 Completed [facility] HIB 4 Dose Schedule 2002-03-12 00:00:00 Completed [facility] DTAP 2002-03-12 00:00:00 Completed [facility] DTAP 2002-03-12 00:00:00 Completed [facility] HIB 4 Dose Schedule 2002-03-12 00:00:00 Completed [facility] HIB 4 Dose Schedule 2002-03-12 00:00:00 Completed [facility] DTAP 2002-03-12 00:00:00 Completed [facility] HIB 4 Dose Schedule 2002-03-12 00:00:00 Completed [facility] HIB 4 Dose Schedule 2002-03-12 00:00:00 Completed [facility] DTAP 2002-03-12 00:00:00 Completed [facility] HIB 4 Dose Schedule 2002-03-12 00:00:00 Completed [facility] DTAP 2002-03-12 00:00:00 Completed [facility] HIB 4 Dose Schedule 2002-03-12 00:00:00 Completed [facility] DTAP 2002-03-12 00:00:00 Completed [facility] DTAP 2002-03-12 00:00:00 Completed [facility] HIB 4 Dose Schedule 2002-03-12 00:00:00 Completed [facility] HIB 4 Dose Schedule 2002-03-12 00:00:00 Completed [facility] DTAP 2002-03-12 00:00:00 Completed [facility] HIB 4 Dose Schedule 2002-03-12 00:00:00 Completed [facility] DTAP 2002-03-12 00:00:00 Completed [facility] HIB 4 Dose Schedule 2002-03-12 00:00:00 Completed [facility] DTAP 2002-03-12 00:00:00 Completed [facility] HIB 4 Dose Schedule 2002-03-12 00:00:00 Completed [facility] DTAP 2002-03-12 00:00:00 Completed [facility] HIB 4 Dose Schedule 2002-03-12 00:00:00 Completed [facility] DTAP 2002-03-12 00:00:00 Completed [facility] HIB 4 Dose Schedule 2002-03-12 00:00:00 Completed [facility] DTAP 2002-03-12 00:00:00 Completed [facility] HIB 4 Dose Schedule 2002-03-12 00:00:00 Completed [facility] DTAP 2002-03-12 00:00:00 Completed [facility] DTAP 2002-03-12 00:00:00 Completed [facility] HIB 4 Dose Schedule 2002-03-12 00:00:00 Completed [facility] HIB 4 Dose Schedule 2002-03-12 00:00:00 Completed [facility] DTAP 2002-03-12 00:00:00 Completed [facility] HIB 4 Dose Schedule 2002-03-12 00:00:00 Completed [facility] DTAP 2002-03-12 00:00:00 Completed [facility] HIB 4 Dose Schedule 2002-03-12 00:00:00 Completed [facility] DTAP 2002-03-12 00:00:00 Completed [facility] HIB 4 Dose Schedule 2002-03-12 00:00:00 Completed [facility] DTAP 2002-03-12 00:00:00 Completed [facility] HIB 4 Dose Schedule 2002-03-12 00:00:00 Completed [facility] DTAP 2002-03-12 00:00:00 Completed HIB 4 Dose Schedule 2002-03-12 00:00:00 Completed DTAP 2002-03-12 00:00:00 Completed [facility] HIB 4 Dose Schedule 2002-03-12 00:00:00 Completed [facility] DTAP 2002-03-12 00:00:00 Completed [facility] HIB 4 Dose Schedule 2002-03-12 00:00:00 Completed [facility] DTAP 2002-03-12 00:00:00 Completed [facility] HIB 4 Dose Schedule 2002-03-12 00:00:00 Completed [facility] DTAP 2002-03-12 00:00:00 Completed [facility] HIB 4 Dose Schedule 2002-03-12 00:00:00 Completed [facility] DTAP 2002-03-12 00:00:00 Completed [facility] HIB 4 Dose Schedule 2002-03-12 00:00:00 Completed [facility] DTAP 2002-03-12 00:00:00 Completed [facility] DTAP 2002-03-12 00:00:00 Completed [facility] HIB 4 Dose Schedule 2002-03-12 00:00:00 Completed [facility] HIB 4 Dose Schedule 2002-03-12 00:00:00 Completed [facility] DTAP 2002-03-12 00:00:00 Completed [facility] HIB 4 Dose Schedule 2002-03-12 00:00:00 Completed [facility] DTAP 2002-03-12 00:00:00 Completed [facility] HIB 4 Dose Schedule 2002-03-12 00:00:00 Completed [facility] DTAP 2002-03-12 00:00:00 Completed [facility] HIB 4 Dose Schedule 2002-03-12 00:00:00 Completed [facility] DTAP 2002-03-12 00:00:00 Completed [facility] HIB 4 Dose Schedule 2002-03-12 00:00:00 Completed [facility] DTAP 2002-03-12 00:00:00 Completed [facility] HIB 4 Dose Schedule 2002-03-12 00:00:00 Completed [facility] DTAP 2002-03-12 00:00:00 Completed [facility] HIB 4 Dose Schedule 2002-03-12 00:00:00 Completed [facility] DTAP 2002-03-12 00:00:00 Completed [facility] HIB 4 Dose Schedule 2002-03-12 00:00:00 Completed [facility] DTAP 2002-03-12 00:00:00 Completed [facility] HIB 4 Dose Schedule 2002-03-12 00:00:00 Completed [facility] Hep B, Adol or Pedi Dosage 2002-01-02 00:00:00 Completed [facility] Polio (IPV/OPV) 2002-01-02 00:00:00 Completed [facility] Hep B, Adol or Pedi Dosage 2002-01-02 00:00:00 Completed [facility] DTAP 2002-01-02 00:00:00 Completed [facility] HIB 4 Dose Schedule 2002-01-02 00:00:00 Completed [facility] Hep B, Adol or Pedi Dosage 2002-01-02 00:00:00 Completed [facility] Polio (IPV/OPV) 2002-01-02 00:00:00 Completed [facility] DTAP 2002-01-02 00:00:00 Completed [facility] HIB 4 Dose Schedule 2002-01-02 00:00:00 Completed [facility] Hep B, Adol or Pedi Dosage 2002-01-02 00:00:00 Completed [facility] Polio (IPV/OPV) 2002-01-02 00:00:00 Completed [facility] Polio (IPV/OPV) 2002-01-02 00:00:00 Completed [facility] DTAP 2002-01-02 00:00:00 Completed [facility] HIB 4 Dose Schedule 2002-01-02 00:00:00 Completed [facility] Hep B, Adol or Pedi Dosage 2002-01-02 00:00:00 Completed [facility] Polio (IPV/OPV) 2002-01-02 00:00:00 Completed [facility] DTAP 2002-01-02 00:00:00 Completed [facility] HIB 4 Dose Schedule 2002-01-02 00:00:00 Completed [facility] Hep B, Adol or Pedi Dosage 2002-01-02 00:00:00 Completed [facility] Polio (IPV/OPV) 2002-01-02 00:00:00 Completed [facility] DTAP 2002-01-02 00:00:00 Completed [facility] HIB 4 Dose Schedule 2002-01-02 00:00:00 Completed [facility] Hep B, Adol or Pedi Dosage 2002-01-02 00:00:00 Completed [facility] DTAP 2002-01-02 00:00:00 Completed [facility] Polio (IPV/OPV) 2002-01-02 00:00:00 Completed [facility] DTAP 2002-01-02 00:00:00 Completed [facility] HIB 4 Dose Schedule 2002-01-02 00:00:00 Completed [facility] Hep B, Adol or Pedi Dosage 2002-01-02 00:00:00 Completed [facility] HIB 4 Dose Schedule 2002-01-02 00:00:00 Completed [facility] Polio (IPV/OPV) 2002-01-02 00:00:00 Completed [facility] DTAP 2002-01-02 00:00:00 Completed [facility] HIB 4 Dose Schedule 2002-01-02 00:00:00 Completed [facility] HIB 4 Dose Schedule 2002-01-02 00:00:00 Completed [facility] Hep B, Adol or Pedi Dosage 2002-01-02 00:00:00 Completed [facility] Polio (IPV/OPV) 2002-01-02 00:00:00 Completed [facility] Hep B, Adol or Pedi Dosage 2002-01-02 00:00:00 Completed [facility] Polio (IPV/OPV) 2002-01-02 00:00:00 Completed [facility] DTAP 2002-01-02 00:00:00 Completed [facility] HIB 4 Dose Schedule 2002-01-02 00:00:00 Completed [facility] Hep B, Adol or Pedi Dosage 2002-01-02 00:00:00 Completed [facility] Polio (IPV/OPV) 2002-01-02 00:00:00 Completed [facility] DTAP 2002-01-02 00:00:00 Completed [facility] DTAP 2002-01-02 00:00:00 Completed [facility] HIB 4 Dose Schedule 2002-01-02 00:00:00 Completed [facility] Hep B, Adol or Pedi Dosage 2002-01-02 00:00:00 Completed [facility] Polio (IPV/OPV) 2002-01-02 00:00:00 Completed [facility] HIB 4 Dose Schedule 2002-01-02 00:00:00 Completed [facility] DTAP 2002-01-02 00:00:00 Completed [facility] HIB 4 Dose Schedule 2002-01-02 00:00:00 Completed [facility] Hep B, Adol or Pedi Dosage 2002-01-02 00:00:00 Completed [facility] Polio (IPV/OPV) 2002-01-02 00:00:00 Completed [facility] DTAP 2002-01-02 00:00:00 Completed [facility] HIB 4 Dose Schedule 2002-01-02 00:00:00 Completed [facility] Hep B, Adol or Pedi Dosage 2002-01-02 00:00:00 Completed [facility] Hep B, Adol or Pedi Dosage 2002-01-02 00:00:00 Completed [facility] Polio (IPV/OPV) 2002-01-02 00:00:00 Completed [facility] DTAP 2002-01-02 00:00:00 Completed [facility] HIB 4 Dose Schedule 2002-01-02 00:00:00 Completed [facility] Hep B, Adol or Pedi Dosage 2002-01-02 00:00:00 Completed [facility] Polio (IPV/OPV) 2002-01-02 00:00:00 Completed [facility] DTAP 2002-01-02 00:00:00 Completed [facility] HIB 4 Dose Schedule 2002-01-02 00:00:00 Completed [facility] Polio (IPV/OPV) 2002-01-02 00:00:00 Completed [facility] Hep B, Adol or Pedi Dosage 2002-01-02 00:00:00 Completed [facility] Polio (IPV/OPV) 2002-01-02 00:00:00 Completed [facility] DTAP 2002-01-02 00:00:00 Completed [facility] HIB 4 Dose Schedule 2002-01-02 00:00:00 Completed [facility] Hep B, Adol or Pedi Dosage 2002-01-02 00:00:00 Completed [facility] Polio (IPV/OPV) 2002-01-02 00:00:00 Completed [facility] DTAP 2002-01-02 00:00:00 Completed [facility] HIB 4 Dose Schedule 2002-01-02 00:00:00 Completed [facility] Hep B, Adol or Pedi Dosage 2002-01-02 00:00:00 Completed [facility] Polio (IPV/OPV) 2002-01-02 00:00:00 Completed [facility] DTAP 2002-01-02 00:00:00 Completed [facility] HIB 4 Dose Schedule 2002-01-02 00:00:00 Completed [facility] Hep B, Adol or Pedi Dosage 2002-01-02 00:00:00 Completed [facility] DTAP 2002-01-02 00:00:00 Completed [facility] Polio (IPV/OPV) 2002-01-02 00:00:00 Completed [facility] DTAP 2002-01-02 00:00:00 Completed [facility] HIB 4 Dose Schedule 2002-01-02 00:00:00 Completed [facility] Hep B, Adol or Pedi Dosage 2002-01-02 00:00:00 Completed [facility] HIB 4 Dose Schedule 2002-01-02 00:00:00 Completed [facility] Hep B, Adol or Pedi Dosage 2002-01-02 00:00:00 Completed [facility] Polio (IPV/OPV) 2002-01-02 00:00:00 Completed [facility] DTAP 2002-01-02 00:00:00 Completed [facility] HIB 4 Dose Schedule 2002-01-02 00:00:00 Completed [facility] Hep B, Adol or Pedi Dosage 2002-01-02 00:00:00 Completed [facility] Polio (IPV/OPV) 2002-01-02 00:00:00 Completed [facility] Hep B, Adol or Pedi Dosage 2002-01-02 00:00:00 Completed [facility] DTAP 2002-01-02 00:00:00 Completed [facility] HIB 4 Dose Schedule 2002-01-02 00:00:00 Completed [facility] Hep B, Adol or Pedi Dosage 2002-01-02 00:00:00 Completed [facility] Polio (IPV/OPV) 2002-01-02 00:00:00 Completed [facility] Polio (IPV/OPV) 2002-01-02 00:00:00 Completed [facility] DTAP 2002-01-02 00:00:00 Completed [facility] HIB 4 Dose Schedule 2002-01-02 00:00:00 Completed [facility] Hep B, Adol or Pedi Dosage 2002-01-02 00:00:00 Completed [facility] Polio (IPV/OPV) 2002-01-02 00:00:00 Completed [facility] DTAP 2002-01-02 00:00:00 Completed [facility] Polio (IPV/OPV) 2002-01-02 00:00:00 Completed [facility] HIB 4 Dose Schedule 2002-01-02 00:00:00 Completed [facility] Hep B, Adol or Pedi Dosage 2002-01-02 00:00:00 Completed [facility] Polio (IPV/OPV) 2002-01-02 00:00:00 Completed [facility] DTAP 2002-01-02 00:00:00 Completed HIB 4 Dose Schedule 2002-01-02 00:00:00 Completed Hep B, Adol or Pedi Dosage 2002-01-02 00:00:00 Completed Polio (IPV/OPV) 2002-01-02 00:00:00 Completed DTAP 2002-01-02 00:00:00 Completed [facility] HIB 4 Dose Schedule 2002-01-02 00:00:00 Completed [facility] Hep B, Adol or Pedi Dosage 2002-01-02 00:00:00 Completed [facility] Polio (IPV/OPV) 2002-01-02 00:00:00 Completed [facility] DTAP 2002-01-02 00:00:00 Completed [facility] HIB 4 Dose Schedule 2002-01-02 00:00:00 Completed [facility] Hep B, Adol or Pedi Dosage 2002-01-02 00:00:00 Completed [facility] Polio (IPV/OPV) 2002-01-02 00:00:00 Completed [facility] DTAP 2002-01-02 00:00:00 Completed [facility] HIB 4 Dose Schedule 2002-01-02 00:00:00 Completed [facility] Hep B, Adol or Pedi Dosage 2002-01-02 00:00:00 Completed [facility] Polio (IPV/OPV) 2002-01-02 00:00:00 Completed [facility] DTAP 2002-01-02 00:00:00 Completed [facility] HIB 4 Dose Schedule 2002-01-02 00:00:00 Completed [facility] Hep B, Adol or Pedi Dosage 2002-01-02 00:00:00 Completed [facility] Polio (IPV/OPV) 2002-01-02 00:00:00 Completed [facility] DTAP 2002-01-02 00:00:00 Completed [facility] HIB 4 Dose Schedule 2002-01-02 00:00:00 Completed [facility] Hep B, Adol or Pedi Dosage 2002-01-02 00:00:00 Completed [facility] Polio (IPV/OPV) 2002-01-02 00:00:00 Completed [facility] DTAP 2002-01-02 00:00:00 Completed [facility] HIB 4 Dose Schedule 2002-01-02 00:00:00 Completed [facility] DTAP 2002-01-02 00:00:00 Completed [facility] HIB 4 Dose Schedule 2002-01-02 00:00:00 Completed [facility] Hep B, Adol or Pedi Dosage 2002-01-02 00:00:00 Completed [facility] Polio (IPV/OPV) 2002-01-02 00:00:00 Completed [facility] Hep B, Adol or Pedi Dosage 2002-01-02 00:00:00 Completed [facility] DTAP 2002-01-02 00:00:00 Completed [facility] HIB 4 Dose Schedule 2002-01-02 00:00:00 Completed [facility] Hep B, Adol or Pedi Dosage 2002-01-02 00:00:00 Completed [facility] Polio (IPV/OPV) 2002-01-02 00:00:00 Completed [facility] DTAP 2002-01-02 00:00:00 Completed [facility] HIB 4 Dose Schedule 2002-01-02 00:00:00 Completed [facility] Hep B, Adol or Pedi Dosage 2002-01-02 00:00:00 Completed [facility] Polio (IPV/OPV) 2002-01-02 00:00:00 Completed [facility] Polio (IPV/OPV) 2002-01-02 00:00:00 Completed [facility] DTAP 2002-01-02 00:00:00 Completed [facility] HIB 4 Dose Schedule 2002-01-02 00:00:00 Completed [facility] Hep B, Adol or Pedi Dosage 2002-01-02 00:00:00 Completed [facility] Polio (IPV/OPV) 2002-01-02 00:00:00 Completed [facility] DTAP 2002-01-02 00:00:00 Completed [facility] HIB 4 Dose Schedule 2002-01-02 00:00:00 Completed [facility] Hep B, Adol or Pedi Dosage 2002-01-02 00:00:00 Completed [facility] Polio (IPV/OPV) 2002-01-02 00:00:00 Completed [facility] DTAP 2002-01-02 00:00:00 Completed [facility] HIB 4 Dose Schedule 2002-01-02 00:00:00 Completed [facility] Hep B, Adol or Pedi Dosage 2002-01-02 00:00:00 Completed [facility] Polio (IPV/OPV) 2002-01-02 00:00:00 Completed [facility] DTAP 2002-01-02 00:00:00 Completed [facility] HIB 4 Dose Schedule 2002-01-02 00:00:00 Completed [facility] Hep B, Adol or Pedi Dosage 2002-01-02 00:00:00 Completed [facility] Polio (IPV/OPV) 2002-01-02 00:00:00 Completed [facility] DTAP 2002-01-02 00:00:00 Completed [facility] DTAP 2002-01-02 00:00:00 Completed [facility] HIB 4 Dose Schedule 2002-01-02 00:00:00 Completed [facility] DTAP 2002-01-02 00:00:00 Completed [facility] HIB 4 Dose Schedule 2002-01-02 00:00:00 Completed [facility] Pneumococcal 7 Conjugate, PCV7 (Prevnar7) 2001 00:00:00 Completed [facility] Polio (IPV/OPV) 2001 00:00:00 Completed [facility] DTAP 2001 00:00:00 Completed [facility] HIB 4 Dose Schedule 2001 00:00:00 Completed [facility] Pneumococcal 7 Conjugate, PCV7 (Prevnar7) 2001 00:00:00 Completed [facility] Polio (IPV/OPV) 2001 00:00:00 Completed [facility] Pneumococcal 7 Conjugate, PCV7 (Prevnar7) 2001 00:00:00 Completed [facility] DTAP 2001 00:00:00 Completed [facility] HIB 4 Dose Schedule 2001 00:00:00 Completed [facility] Pneumococcal 7 Conjugate, PCV7 (Prevnar7) 2001 00:00:00 Completed [facility] Polio (IPV/OPV) 2001 00:00:00 Completed [facility] Polio (IPV/OPV) 2001 00:00:00 Completed [facility] DTAP 2001 00:00:00 Completed [facility] HIB 4 Dose Schedule 2001 00:00:00 Completed [facility] Pneumococcal 7 Conjugate, PCV7 (Prevnar7) 2001 00:00:00 Completed [facility] Polio (IPV/OPV) 2001 00:00:00 Completed [facility] DTAP 2001 00:00:00 Completed [facility] HIB 4 Dose Schedule 2001 00:00:00 Completed [facility] HIB 4 Dose Schedule 2001 00:00:00 Completed [facility] Pneumococcal 7 Conjugate, PCV7 (Prevnar7) 2001 00:00:00 Completed [facility] Polio (IPV/OPV) 2001 00:00:00 Completed [facility] DTAP 2001 00:00:00 Completed [facility] DTAP 2001 00:00:00 Completed [facility] HIB 4 Dose Schedule 2001 00:00:00 Completed [facility] Pneumococcal 7 Conjugate, PCV7 (Prevnar7) 2001 00:00:00 Completed [facility] Polio (IPV/OPV) 2001 00:00:00 Completed [facility] DTAP 2001 00:00:00 Completed [facility] HIB 4 Dose Schedule 2001 00:00:00 Completed [facility] HIB 4 Dose Schedule 2001 00:00:00 Completed [facility] Pneumococcal 7 Conjugate, PCV7 (Prevnar7) 2001 00:00:00 Completed [facility] Polio (IPV/OPV) 2001 00:00:00 Completed [facility] DTAP 2001 00:00:00 Completed [facility] HIB 4 Dose Schedule 2001 00:00:00 Completed [facility] Pneumococcal 7 Conjugate, PCV7 (Prevnar7) 2001 00:00:00 Completed [facility] Polio (IPV/OPV) 2001 00:00:00 Completed [facility] Pneumococcal 7 Conjugate, PCV7 (Prevnar7) 2001 00:00:00 Completed [facility] Polio (IPV/OPV) 2001 00:00:00 Completed [facility] DTAP 2001 00:00:00 Completed [facility] HIB 4 Dose Schedule 2001 00:00:00 Completed [facility] Pneumococcal 7 Conjugate, PCV7 (Prevnar7) 2001 00:00:00 Completed [facility] Polio (IPV/OPV) 2001 00:00:00 Completed [facility] DTAP 2001 00:00:00 Completed [facility] DTAP 2001 00:00:00 Completed [facility] HIB 4 Dose Schedule 2001 00:00:00 Completed [facility] Pneumococcal 7 Conjugate, PCV7 (Prevnar7) 2001 00:00:00 Completed [facility] Polio (IPV/OPV) 2001 00:00:00 Completed [facility] HIB 4 Dose Schedule 2001 00:00:00 Completed [facility] DTAP 2001 00:00:00 Completed [facility] HIB 4 Dose Schedule 2001 00:00:00 Completed [facility] Pneumococcal 7 Conjugate, PCV7 (Prevnar7) 2001 00:00:00 Completed [facility] Polio (IPV/OPV) 2001 00:00:00 Completed [facility] DTAP 2001 00:00:00 Completed [facility] HIB 4 Dose Schedule 2001 00:00:00 Completed [facility] Pneumococcal 7 Conjugate, PCV7 (Prevnar7) 2001 00:00:00 Completed [facility] Polio (IPV/OPV) 2001 00:00:00 Completed [facility] Pneumococcal 7 Conjugate, PCV7 (Prevnar7) 2001 00:00:00 Completed [facility] DTAP 2001 00:00:00 Completed [facility] HIB 4 Dose Schedule 2001 00:00:00 Completed [facility] Pneumococcal 7 Conjugate, PCV7 (Prevnar7) 2001 00:00:00 Completed [facility] Polio (IPV/OPV) 2001 00:00:00 Completed [facility] Polio (IPV/OPV) 2001 00:00:00 Completed [facility] DTAP 2001 00:00:00 Completed [facility] HIB 4 Dose Schedule 2001 00:00:00 Completed [facility] Pneumococcal 7 Conjugate, PCV7 (Prevnar7) 2001 00:00:00 Completed [facility] Polio (IPV/OPV) 2001 00:00:00 Completed [facility] DTAP 2001 00:00:00 Completed [facility] HIB 4 Dose Schedule 2001 00:00:00 Completed [facility] Pneumococcal 7 Conjugate, PCV7 (Prevnar7) 2001 00:00:00 Completed [facility] Polio (IPV/OPV) 2001 00:00:00 Completed [facility] DTAP 2001 00:00:00 Completed [facility] HIB 4 Dose Schedule 2001 00:00:00 Completed [facility] Pneumococcal 7 Conjugate, PCV7 (Prevnar7) 2001 00:00:00 Completed [facility] Polio (IPV/OPV) 2001 00:00:00 Completed [facility] DTAP 2001 00:00:00 Completed [facility] HIB 4 Dose Schedule 2001 00:00:00 Completed [facility] DTAP 2001 00:00:00 Completed [facility] Pneumococcal 7 Conjugate, PCV7 (Prevnar7) 2001 00:00:00 Completed [facility] Polio (IPV/OPV) 2001 00:00:00 Completed [facility] DTAP 2001 00:00:00 Completed [facility] HIB 4 Dose Schedule 2001 00:00:00 Completed [facility] HIB 4 Dose Schedule 2001 00:00:00 Completed [facility] Pneumococcal 7 Conjugate, PCV7 (Prevnar7) 2001 00:00:00 Completed [facility] Polio (IPV/OPV) 2001 00:00:00 Completed [facility] DTAP 2001 00:00:00 Completed [facility] HIB 4 Dose Schedule 2001 00:00:00 Completed [facility] Pneumococcal 7 Conjugate, PCV7 (Prevnar7) 2001 00:00:00 Completed [facility] Polio (IPV/OPV) 2001 00:00:00 Completed [facility] DTAP 2001 00:00:00 Completed [facility] Pneumococcal 7 Conjugate, PCV7 (Prevnar7) 2001 00:00:00 Completed [facility] HIB 4 Dose Schedule 2001 00:00:00 Completed [facility] Pneumococcal 7 Conjugate, PCV7 (Prevnar7) 2001 00:00:00 Completed [facility] Polio (IPV/OPV) 2001 00:00:00 Completed [facility] Polio (IPV/OPV) 2001 00:00:00 Completed [facility] Pneumococcal 7 Conjugate, PCV7 (Prevnar7) 2001 00:00:00 Completed [facility] DTAP 2001 00:00:00 Completed [facility] HIB 4 Dose Schedule 2001 00:00:00 Completed [facility] Pneumococcal 7 Conjugate, PCV7 (Prevnar7) 2001 00:00:00 Completed [facility] Polio (IPV/OPV) 2001 00:00:00 Completed [facility] Polio (IPV/OPV) 2001 00:00:00 Completed [facility] DTAP 2001 00:00:00 Completed [facility] HIB 4 Dose Schedule 2001 00:00:00 Completed [facility] Pneumococcal 7 Conjugate, PCV7 (Prevnar7) 2001 00:00:00 Completed [facility] Polio (IPV/OPV) 2001 00:00:00 Completed [facility] DTAP 2001 00:00:00 Completed HIB 4 Dose Schedule 2001 00:00:00 Completed Pneumococcal 7 Conjugate, PCV7 (Prevnar7) 2001 00:00:00 Completed Polio (IPV/OPV) 2001 00:00:00 Completed DTAP 2001 00:00:00 Completed [facility] HIB 4 Dose Schedule 2001 00:00:00 Completed [facility] Pneumococcal 7 Conjugate, PCV7 (Prevnar7) 2001 00:00:00 Completed [facility] Polio (IPV/OPV) 2001 00:00:00 Completed [facility] DTAP 2001 00:00:00 Completed [facility] HIB 4 Dose Schedule 2001 00:00:00 Completed [facility] Pneumococcal 7 Conjugate, PCV7 (Prevnar7) 2001 00:00:00 Completed [facility] Polio (IPV/OPV) 2001 00:00:00 Completed [facility] DTAP 2001 00:00:00 Completed [facility] HIB 4 Dose Schedule 2001 00:00:00 Completed [facility] Pneumococcal 7 Conjugate, PCV7 (Prevnar7) 2001 00:00:00 Completed [facility] Polio (IPV/OPV) 2001 00:00:00 Completed [facility] DTAP 2001 00:00:00 Completed [facility] HIB 4 Dose Schedule 2001 00:00:00 Completed [facility] Pneumococcal 7 Conjugate, PCV7 (Prevnar7) 2001 00:00:00 Completed [facility] Polio (IPV/OPV) 2001 00:00:00 Completed [facility] DTAP 2001 00:00:00 Completed [facility] HIB 4 Dose Schedule 2001 00:00:00 Completed [facility] Pneumococcal 7 Conjugate, PCV7 (Prevnar7) 2001 00:00:00 Completed [facility] Polio (IPV/OPV) 2001 00:00:00 Completed [facility] DTAP 2001 00:00:00 Completed [facility] HIB 4 Dose Schedule 2001 00:00:00 Completed [facility] DTAP 2001 00:00:00 Completed [facility] HIB 4 Dose Schedule 2001 00:00:00 Completed [facility] Pneumococcal 7 Conjugate, PCV7 (Prevnar7) 2001 00:00:00 Completed [facility] Polio (IPV/OPV) 2001 00:00:00 Completed [facility] DTAP 2001 00:00:00 Completed [facility] HIB 4 Dose Schedule 2001 00:00:00 Completed [facility] Pneumococcal 7 Conjugate, PCV7 (Prevnar7) 2001 00:00:00 Completed [facility] Pneumococcal 7 Conjugate, PCV7 (Prevnar7) 2001 00:00:00 Completed [facility] Polio (IPV/OPV) 2001 00:00:00 Completed [facility] DTAP 2001 00:00:00 Completed [facility] HIB 4 Dose Schedule 2001 00:00:00 Completed [facility] Pneumococcal 7 Conjugate, PCV7 (Prevnar7) 2001 00:00:00 Completed [facility] Polio (IPV/OPV) 2001 00:00:00 Completed [facility] Polio (IPV/OPV) 2001 00:00:00 Completed [facility] DTAP 2001 00:00:00 Completed [facility] HIB 4 Dose Schedule 2001 00:00:00 Completed [facility] Pneumococcal 7 Conjugate, PCV7 (Prevnar7) 2001 00:00:00 Completed [facility] Polio (IPV/OPV) 2001 00:00:00 Completed [facility] DTAP 2001 00:00:00 Completed [facility] HIB 4 Dose Schedule 2001 00:00:00 Completed [facility] Pneumococcal 7 Conjugate, PCV7 (Prevnar7) 2001 00:00:00 Completed [facility] Polio (IPV/OPV) 2001 00:00:00 Completed [facility] DTAP 2001 00:00:00 Completed [facility] HIB 4 Dose Schedule 2001 00:00:00 Completed [facility] DTAP 2001 00:00:00 Completed [facility] Pneumococcal 7 Conjugate, PCV7 (Prevnar7) 2001 00:00:00 Completed [facility] Polio (IPV/OPV) 2001 00:00:00 Completed [facility] DTAP 2001 00:00:00 Completed [facility] HIB 4 Dose Schedule 2001 00:00:00 Completed [facility] Pneumococcal 7 Conjugate, PCV7 (Prevnar7) 2001 00:00:00 Completed [facility] Polio (IPV/OPV) 2001 00:00:00 Completed [facility] DTAP 2001 00:00:00 Completed [facility] HIB 4 Dose Schedule 2001 00:00:00 Completed [facility] DTAP 2001 00:00:00 Completed [facility] HIB 4 Dose Schedule 2001 00:00:00 Completed [facility] Hep B, Adol or Pedi Dosage 2001 00:00:00 Completed [facility] Hep B, Adol or Pedi Dosage 2001 00:00:00 Completed [facility] Hep B, Adol or Pedi Dosage 2001 00:00:00 Completed [facility] Hep B, Adol or Pedi Dosage 2001 00:00:00 Completed [facility] Hep B, Adol or Pedi Dosage 2001 00:00:00 Completed [facility] Hep B, Adol or Pedi Dosage 2001 00:00:00 Completed [facility] Hep B, Adol or Pedi Dosage 2001 00:00:00 Completed [facility] Hep B, Adol or Pedi Dosage 2001 00:00:00 Completed [facility] Hep B, Adol or Pedi Dosage 2001 00:00:00 Completed [facility] Hep B, Adol or Pedi Dosage 2001 00:00:00 Completed [facility] Hep B, Adol or Pedi Dosage 2001 00:00:00 Completed [facility] Hep B, Adol or Pedi Dosage 2001 00:00:00 Completed [facility] Hep B, Adol or Pedi Dosage 2001 00:00:00 Completed [facility] Hep B, Adol or Pedi Dosage 2001 00:00:00 Completed [facility] Hep B, Adol or Pedi Dosage 2001 00:00:00 Completed [facility] Hep B, Adol or Pedi Dosage 2001 00:00:00 Completed [facility] Hep B, Adol or Pedi Dosage 2001 00:00:00 Completed [facility] Hep B, Adol or Pedi Dosage 2001 00:00:00 Completed [facility] Hep B, Adol or Pedi Dosage 2001 00:00:00 Completed [facility] Hep B, Adol or Pedi Dosage 2001 00:00:00 Completed [facility] Hep B, Adol or Pedi Dosage 2001 00:00:00 Completed [facility] Hep B, Adol or Pedi Dosage 2001 00:00:00 Completed [facility] Hep B, Adol or Pedi Dosage 2001 00:00:00 Completed [facility] Hep B, Adol or Pedi Dosage 2001 00:00:00 Completed [facility] Hep B, Adol or Pedi Dosage 2001 00:00:00 Completed [facility] Hep B, Adol or Pedi Dosage 2001 00:00:00 Completed [facility] Hep B, Adol or Pedi Dosage 2001 00:00:00 Completed [facility] Hep B, Adol or Pedi Dosage 2001 00:00:00 Completed Hep B, Adol or Pedi Dosage 2001 00:00:00 Completed [facility] Hep B, Adol or Pedi Dosage 2001 00:00:00 Completed [facility] Hep B, Adol or Pedi Dosage 2001 00:00:00 Completed [facility] Hep B, Adol or Pedi Dosage 2001 00:00:00 Completed [facility] Hep B, Adol or Pedi Dosage 2001 00:00:00 Completed [facility] Hep B, Adol or Pedi Dosage 2001 00:00:00 Completed [facility] Hep B, Adol or Pedi Dosage 2001 00:00:00 Completed [facility] Hep B, Adol or Pedi Dosage 2001 00:00:00 Completed [facility] Hep B, Adol or Pedi Dosage 2001 00:00:00 Completed [facility] Hep B, Adol or Pedi Dosage 2001 00:00:00 Completed [facility] Hep B, Adol or Pedi Dosage 2001 00:00:00 Completed [facility] Hep B, Adol or Pedi Dosage 2001 00:00:00 Completed [facility] Hep B, Adol or Pedi Dosage 2001 00:00:00 Completed [facility] Vital Signs Vital Name Observation Time Observation Value Comments S ource Systolic blood pressure 2023-11-01 17:54:00 115 mm[Hg] [facility] Diastolic blood pressure 2023-11-01 17:54:00 64 mm[Hg] [facility] Heart rate 2023-11-01 17:54:00 64 /min [facility] Body temperature 2023-11-01 17:54:00 36.22 Mai [facility] Respiratory rate 2023-11-01 17:54:00 18 /min [facility] Body height 2023-11-01 17:54:00 160 cm [facility] Body weight 2023-11-01 17:54:00 63.912 kg [facility] BMI 2023-11-01 17:54:00 24.96 kg/m2 [facility] Systolic blood pressure 2023-10-17 16:03:00 107 mm[Hg] [facility] Diastolic blood pressure 2023-10-17 16:03:00 72 mm[Hg] [facility] Heart rate 2023-10-17 16:03:00 58 /min [facility] Body temperature 2023-10-17 16:03:00 36.44 Mai [facility] Respiratory rate 2023-10-17 16:03:00 17 /min [facility] Body height 2023-10-17 16:03:00 160 cm [facility] Body weight 2023-10-17 16:03:00 66.361 kg [facility] BMI 2023-10-17 16:03:00 25.92 kg/m2 [facility] Systolic blood pressure 2023-10-02 18:51:00 125 mm[Hg] [facility] Diastolic blood pressure 2023-10-02 18:51:00 71 mm[Hg] [facility] Heart rate 2023-10-02 18:51:00 60 /min [facility] Body temperature 2023-10-02 18:51:00 35.72 Mai [facility] Respiratory rate 2023-10-02 18:51:00 18 /min [facility] Body height 2023-10-02 18:51:00 160 cm [facility] Body weight 2023-10-02 18:51:00 66.225 kg [facility] BMI 2023-10-02 18:51:00 25.86 kg/m2 [facility] Systolic blood pressure 2023-09-09 14:25:00 110 mm[Hg] [place] [facility] Diastolic blood pressure 2023-09-09 14:25:00 69 mm[Hg] [facility] Heart rate 2023-09-09 14:25:00 77 /min [facility] Body temperature 2023-09-09 14:25:00 36.89 Mai [facility] Respiratory rate 2023-09-09 14:25:00 19 /min [facility] Body height 2023-09-09 14:25:00 160 cm [facility] Body weight 2023-09-09 14:25:00 66.951 kg [facility] BMI 2023-09-09 14:25:00 26.15 kg/m2 [facility] Systolic blood pressure 2023-07-05 16:17:00 118 mm[Hg] [facility] Diastolic blood pressure 2023-07-05 16:17:00 84 mm[Hg] [facility] Heart rate 2023-07-05 16:17:00 97 /min [facility] Body temperature 2023-07-05 16:17:00 36.11 Mai [facility] Respiratory rate 2023-07-05 16:17:00 18 /min [facility] Body height 2023-07-05 16:17:00 160 cm [facility] Body weight 2023-07-05 16:17:00 65.318 kg [facility] BMI 2023-07-05 16:17:00 25.51 kg/m2 [facility] Systolic blood pressure 2023-06-07 13:00:00 118 mm[Hg] [facility] Diastolic blood pressure 2023-06-07 13:00:00 86 mm[Hg] [facility] Heart rate 2023-06-07 13:00:00 101 /min [facility] Body temperature 2023-06-07 13:00:00 36.39 Mai [facility] Respiratory rate 2023-06-07 13:00:00 18 /min [facility] Oxygen saturation in Arterial blood by Pulse oximetry 2023-06-07 13:00:00 99 /min [facility] Body height 2023-06-06 00:00:00 162.6 cm [facility] Body weight 2023-06-06 00:00:00 74.98 kg [facility] BMI 2023-06-06 00:00:00 28.36 kg/m2 [facility] Systolic blood pressure 2023-05-31 13:55:00 119 mm[Hg] [facility] Diastolic blood pressure 2023-05-31 13:55:00 73 mm[Hg] [facility] Heart rate 2023-05-31 13:55:00 79 /min [facility] Body temperature 2023-05-31 13:55:00 35.83 Mai [facility] Respiratory rate 2023-05-31 13:55:00 24 /min [facility] Body height 2023-05-31 13:55:00 162.6 cm [facility] Body weight 2023-05-31 13:55:00 74.98 kg [facility] BMI 2023-05-31 13:55:00 28.37 kg/m2 [facility] Systolic blood pressure 2023-05-24 13:50:00 125 mm[Hg] [facility] Diastolic blood pressure 2023-05-24 13:50:00 87 mm[Hg] [facility] Heart rate 2023-05-24 13:50:00 76 /min [facility] Body temperature 2023-05-24 13:50:00 35.83 Mai [facility] Respiratory rate 2023-05-24 13:50:00 18 /min [facility] Body height 2023-05-24 13:50:00 162.6 cm [facility] Body weight 2023-05-24 13:50:00 73.483 kg [facility] BMI 2023-05-24 13:50:00 27.81 kg/m2 [facility] Systolic blood pressure 2023-05-16 14:07:00 121 mm[Hg] [facility] Diastolic blood pressure 2023-05-16 14:07:00 79 mm[Hg] [facility] Heart rate 2023-05-16 14:07:00 77 /min [facility] Body temperature 2023-05-16 14:07:00 36.17 Mai [facility] Respiratory rate 2023-05-16 14:07:00 18 /min [facility] Body height 2023-05-16 14:07:00 162.6 cm [facility] Body weight 2023-05-16 14:07:00 73.483 kg [facility] BMI 2023-05-16 14:07:00 27.81 kg/m2 [facility] Systolic blood pressure 2023-05-09 13:58:00 136 mm[Hg] [facility] Diastolic blood pressure 2023-05-09 13:58:00 74 mm[Hg] [facility] Heart rate 2023-05-09 13:58:00 83 /min [facility] Body temperature 2023-05-09 13:58:00 35.78 Mai [facility] Respiratory rate 2023-05-09 13:58:00 18 /min [facility] Body height 2023-05-09 13:58:00 167.6 cm [facility] Body weight 2023-05-09 13:58:00 72.621 kg [facility] BMI 2023-05-09 13:58:00 25.84 kg/m2 [facility] Systolic blood pressure 2023-05-02 20:46:00 117 mm[Hg] [facility] Diastolic blood pressure 2023-05-02 20:46:00 68 mm[Hg] [facility] Heart rate 2023-05-02 20:46:00 94 /min [facility] Body temperature 2023-05-02 20:46:00 36.33 Mai [facility] Respiratory rate 2023-05-02 20:46:00 20 /min [facility] Body height 2023-05-02 20:46:00 167.6 cm [facility] Body weight 2023-05-02 20:46:00 75.297 kg [facility] BMI 2023-05-02 20:46:00 26.79 kg/m2 [facility] Systolic blood pressure 2023-04-18 14:16:00 120 mm[Hg] [facility] Diastolic blood pressure 2023-04-18 14:16:00 73 mm[Hg] [facility] Heart rate 2023-04-18 14:16:00 109 /min [facility] Body temperature 2023-04-18 14:16:00 35.94 Mai [facility] Respiratory rate 2023-04-18 14:16:00 24 /min [facility] Body height 2023-04-18 14:16:00 167.6 cm [facility] Body weight 2023-04-18 14:16:00 73.936 kg [facility] BMI 2023-04-18 14:16:00 26.31 kg/m2 [facility] Systolic blood pressure 2023-04-04 13:59:00 109 mm[Hg] [facility] Diastolic blood pressure 2023-04-04 13:59:00 66 mm[Hg] [facility] Heart rate 2023-04-04 13:59:00 87 /min [facility] Body temperature 2023-04-04 13:59:00 36.28 Mai [facility] Respiratory rate 2023-04-04 13:59:00 20 /min [facility] Body height 2023-04-04 13:59:00 167.6 cm [facility] Body weight 2023-04-04 13:59:00 70.761 kg [facility] BMI 2023-04-04 13:59:00 25.18 kg/m2 [facility] Systolic blood pressure 2023-03-21 15:01:00 118 mm[Hg] [facility] Diastolic blood pressure 2023-03-21 15:01:00 76 mm[Hg] [place] [facility] Heart rate 2023-03-21 15:01:00 79 /min [facility] Body temperature 2023-03-21 15:01:00 36.17 Mai [facility] Respiratory rate 2023-03-21 15:01:00 20 /min [facility] Body height 2023-03-21 15:01:00 167.6 cm [facility] Body weight 2023-03-21 15:01:00 70.308 kg [facility] BMI 2023-03-21 15:01:00 25.02 kg/m2 [facility] Systolic blood pressure 2023-03-07 14:05:00 125 mm[Hg] [facility] Diastolic blood pressure 2023-03-07 14:05:00 78 mm[Hg] [facility] Heart rate 2023-03-07 14:05:00 88 /min [facility] Body temperature 2023-03-07 14:05:00 36.17 Mai [facility] Respiratory rate 2023-03-07 14:05:00 20 /min [facility] Body height 2023-03-07 14:05:00 167.6 cm [facility] Body weight 2023-03-07 14:05:00 70.761 kg [facility] BMI 2023-03-07 14:05:00 25.18 kg/m2 [facility] Systolic blood pressure 2023-02-07 14:05:00 121 mm[Hg] [facility] Diastolic blood pressure 2023-02-07 14:05:00 75 mm[Hg] [facility] Heart rate 2023-02-07 14:05:00 70 /min [facility] Body temperature 2023-02-07 14:05:00 36.33 Mai [facility] Respiratory rate 2023-02-07 14:05:00 20 /min [facility] Body height 2023-02-07 14:05:00 167.6 cm [facility] Body weight 2023-02-07 14:05:00 67.586 kg [facility] BMI 2023-02-07 14:05:00 24.05 kg/m2 [facility] Systolic blood pressure 2023-01-10 16:21:00 115 mm[Hg] [facility] Diastolic blood pressure 2023-01-10 16:21:00 70 mm[Hg] [facility] Heart rate 2023-01-10 16:21:00 86 /min [facility] Body temperature 2023-01-10 16:21:00 36.22 Mai [facility] Respiratory rate 2023-01-10 16:21:00 20 /min [facility] Body height 2023-01-10 16:21:00 167.6 cm [facility] Body weight 2023-01-10 16:21:00 64.864 kg [facility] BMI 2023-01-10 16:21:00 23.08 kg/m2 [facility] Systolic blood pressure 2022-12-27 14:04:00 118 mm[Hg] [facility] Diastolic blood pressure 2022-12-27 14:04:00 76 mm[Hg] [facility] Heart rate 2022-12-27 14:04:00 84 /min [facility] Body temperature 2022-12-27 14:04:00 35.94 Mai [facility] Respiratory rate 2022-12-27 14:04:00 20 /min [facility] Body height 2022-12-27 14:04:00 167.6 cm [facility] Body weight 2022-12-27 14:04:00 64.365 kg [facility] BMI 2022-12-27 14:04:00 22.90 kg/m2 [facility] Systolic blood pressure 2022-11-29 13:50:00 134 mm[Hg] [facility] Diastolic blood pressure 2022-11-29 13:50:00 82 mm[Hg] [facility] Heart rate 2022-11-29 13:50:00 83 /min [facility] Body temperature 2022-11-29 13:50:00 36.06 Mai [facility] Respiratory rate 2022-11-29 13:50:00 20 /min [facility] Body height 2022-11-29 13:50:00 167.6 cm [facility] Body weight 2022-11-29 13:50:00 61.916 kg [facility] BMI 2022-11-29 13:50:00 22.03 kg/m2 [facility] Systolic blood pressure 2022-11-01 20:10:00 124 mm[Hg] [facility] Diastolic blood pressure 2022-11-01 20:10:00 68 mm[Hg] [facility] Heart rate 2022-11-01 20:10:00 77 /min [facility] Body temperature 2022-11-01 20:10:00 35.89 Mai [facility] Respiratory rate 2022-11-01 20:10:00 20 /min [facility] Body height 2022-11-01 20:10:00 167.6 cm [facility] Body weight 2022-11-01 20:10:00 61.689 kg [facility] BMI 2022-11-01 20:10:00 21.95 kg/m2 [facility] Systolic blood pressure 2022-10-04 15:15:00 124 mm[Hg] [facility] Diastolic blood pressure 2022-10-04 15:15:00 79 mm[Hg] [facility] Heart rate 2022-10-04 15:15:00 84 /min [facility] Body temperature 2022-10-04 15:15:00 36.39 Mai [facility] Respiratory rate 2022-10-04 15:15:00 20 /min [facility] Body height 2022-10-04 15:15:00 167.6 cm [facility] Body weight 2022-10-04 15:15:00 63.322 kg [facility] BMI 2022-10-04 15:15:00 22.53 kg/m2 [facility] Systolic blood pressure 2019-12-17 20:18:00 123 mm[Hg] [facility] Diastolic blood pressure 2019-12-17 20:18:00 70 mm[Hg] [facility] Heart rate 2019-12-17 20:18:00 65 /min [facility] Body temperature 2019-12-17 20:18:00 36.67 Mai [facility] Respiratory rate 2019-12-17 20:18:00 16 /min [facility] Body height 2019-12-17 20:18:00 167.6 cm [facility] Body weight 2019-12-17 20:18:00 58.514 kg [facility] BMI 2019-12-17 20:18:00 20.82 kg/m2 [facility] Systolic blood pressure 2019-12-03 14:00:00 119 mm[Hg] [facility] Diastolic blood pressure 2019-12-03 14:00:00 85 mm[Hg] [facility] Heart rate 2019-12-03 14:00:00 83 /min [facility] Body temperature 2019-12-03 14:00:00 36.56 Mai [facility] Respiratory rate 2019-12-03 14:00:00 16 /min [facility] Body height 2019-12-03 14:00:00 167.6 cm [facility] Body weight 2019-12-03 14:00:00 57.805 kg [facility] BMI 2019-12-03 14:00:00 20.57 kg/m2 [facility] Systolic blood pressure 2019-10-23 18:56:00 127 mm[Hg] [facility] Diastolic blood pressure 2019-10-23 18:56:00 88 mm[Hg] [facility] Heart rate 2019-10-23 18:53:00 109 /min [facility] Body temperature 2019-10-23 18:53:00 36.72 Mai [facility] Respiratory rate 2019-10-23 18:53:00 20 /min [facility] Oxygen saturation in Arterial blood by Pulse oximetry 2019-10-23 18:53:00 99 /min [facility] Systolic blood pressure 2019-10-19 21:00:00 132 mm[Hg] [facility] Diastolic blood pressure 2019-10-19 21:00:00 80 mm[Hg] [facility] Heart rate 2019-10-19 21:00:00 80 /min [facility] Body temperature 2019-10-19 21:00:00 36.67 Mai [facility] Respiratory rate 2019-10-19 21:00:00 18 /min [facility] Oxygen saturation in Arterial blood by Pulse oximetry 2019-10-19 21:00:00 99 /min [facility] Body height 2019-10-18 11:16:00 165.1 cm [facility] Body weight 2019-10-18 11:16:00 66.679 kg [facility] BMI 2019-10-18 11:16:00 24.46 kg/m2 [facility] Systolic blood pressure 2019-10-09 17:20:00 121 mm[Hg] [facility] Diastolic blood pressure 2019-10-09 17:20:00 70 mm[Hg] [facility] Heart rate 2019-10-09 17:20:00 83 /min [facility] Body temperature 2019-10-09 17:20:00 36.28 Mai [facility] Respiratory rate 2019-10-09 17:20:00 16 /min [facility] Body height 2019-10-09 17:20:00 165.1 cm [facility] Body weight 2019-10-09 17:20:00 66.792 kg [facility] BMI 2019-10-09 17:20:00 24.50 kg/m2 [facility] Systolic blood pressure 2019-10-02 18:56:00 125 mm[Hg] [facility] Diastolic blood pressure 2019-10-02 18:56:00 76 mm[Hg] [facility] Heart rate 2019-10-02 18:56:00 61 /min [facility] Body temperature 2019-10-02 18:56:00 36.17 Mai [facility] Respiratory rate 2019-10-02 18:56:00 16 /min [facility] Body height 2019-10-02 18:56:00 165.1 cm [facility] Body weight 2019-10-02 18:56:00 66.679 kg [facility] BMI 2019-10-02 18:56:00 24.46 kg/m2 [facility] Systolic blood pressure 2019-09-18 15:28:00 119 mm[Hg] [facility] Diastolic blood pressure 2019-09-18 15:28:00 77 mm[Hg] [facility] Heart rate 2019-09-18 15:28:00 81 /min [facility] Body temperature 2019-09-18 15:28:00 36.22 Mai [facility] Respiratory rate 2019-09-18 15:28:00 16 /min [facility] Body height 2019-09-18 15:28:00 167.6 [facility] [facility] Body weight 2019-09-18 15:28:00 65.772 kg [facility] BMI 2019-09-18 15:28:00 23.40 kg/m2 [facility] Systolic blood pressure 2019-08-21 21:14:00 117 mm[Hg] [facility] Diastolic blood pressure 2019-08-21 21:14:00 83 mm[Hg] [facility] Heart rate 2019-08-21 21:14:00 103 /min [facility] Body temperature 2019-08-21 21:14:00 36.44 Mai [facility] Respiratory rate 2019-08-21 21:14:00 16 /min [facility] Body height 2019-08-21 21:14:00 167.6 cm [facility] Body weight 2019-08-21 21:14:00 63.986 kg [facility] BMI 2019-08-21 21:14:00 22.77 kg/m2 [facility] Systolic blood pressure 2019-03-09 20:31:00 106 mm[Hg] [facility] Diastolic blood pressure 2019-03-09 20:31:00 71 mm[Hg] [facility] Heart rate 2019-03-09 20:31:00 90 /min [facility] Body temperature 2019-03-09 20:31:00 36.78 Mai [facility] Respiratory rate 2019-03-09 20:31:00 16 /min [facility] Body height 2019-03-09 20:31:00 167.6 cm [facility] Body weight 2019-03-09 20:31:00 55.906 kg [facility] BMI 2019-03-09 20:31:00 19.89 kg/m2 [facility] Procedures Procedure Date / Time Performed Performing Clinician Source POCT TEST 2023-10-17 16:08:00 Jarad Alejandra [facility] ASSIGNMENT OF BENEFITS 2023-10-17 15:47:55 Docto r Unassigned, [place] [facility] POCT TEST 2023-10-02 18:56:00 Jarad Alejandra [facility] GC & CHLAMYDIA AMPLIFIED ASSAY 2023-09-09 15:59:00 Ke Alejandra [facility] TRICHOMONAS AMPLIFIED ASSAY 2023-09-09 15:59:00 Ke Alejandra [facility] PAP SMEAR-LIQUID BASED-CP 2023-09-09 15:59:00 Ke Alejandra [facility] POCT TEST 2023-09-09 15:03:00 Jarad Alejandra [facility] CBC WITH DIFF 2023-06-07 08:27:00 Christina [facility] VENOUS CORD GAS 2023-06-06 14:29:00 Natalia Phelps [facility] CENTRAL NEURAXIAL BLOCK 2023-06-06 06:25:00 Layne Gallagher [facility] HEPATITIS B SURFACE ANTIGEN 2023-06-06 01:15:00 Natalia Phelps [facility] HB ABO GROUPING 2023-06-06 01:15:00 Natalia Phelps [facility] RHO (D) IMMUNE GLOBULIN 2023-06-06 01:15:00 Luz Jamison [facility] SYPHILIS IGG/IGM 2023-06-06 01:15:00 [facility]ALYSIS 2023-05-31 14:00:00 Tim mckeon [facility] FLU VACC (), 6 MO-64 YRS, .5ML, IM, QUAD (FLUCELVAX) 2023-05-24 14:22:57 Emily [facility] POCT URINALYSIS 2023-05-24 13:57:00 Tim mckeon [facility] POCT URINALYSIS 2023-05-16 14:18:00 Tim mckeon [facility] POCT URINALYSIS 2023-05-09 14:02:00 Tim mckeon [facility] CBC WITH DIFF 2023-05-02 21:03:00 Tim mckeon [facility] POCT URINALYSIS 2023-05-02 20:49:00 Tim mckeon [facility] POCT URINALYSIS 2023-04-18 14:19:00 Tim mckeon [facility] POCT URINALYSIS W/O SPECIFIC GRAVITY 2023-04-04 14:17:00 Dinesh [facility] TDAP VACCINE, >11 YRS, IM 2023-03-21 15:11:41 Dinesh [facility] POCT URINALYSIS W/O SPECIFIC GRAVITY 2023-03-21 15:06:00 Dinesh [facility] POCT URINALYSIS W/O SPECIFIC GRAVITY 2023-03-07 14:14:00 D[facility]h [facility] POCT URINALYSIS W/O SPECIFIC GRAVITY 2023-02-07 14:17:00 Dinesh [facility] POCT URINALYSIS W/O SPECIFIC GRAVITY 2023-01-10 16:33:00 [facility]h [facility] POCT URINALYSIS 2022-12-27 14:10:00 Tim mcekon [facility] FIRST TRIMESTER ULTRASOUND 2022-11-30 15:15:00 Emily [facility] POCT URINALYSIS 2022-11-29 14:00:00 Tim mckeon [facility] POCT URINALYSIS 2022-11-01 20:16:00 Tim mckeon [facility] CBC WITH DIFF 2022-10-04 16:24:00 Tim mckeon [facility] HEPATITIS B SURFACE ANTIGEN 2022-10-04 16:24:00 Emily [facility] HCV ANTIBODY 2022-10-04 16:24:00 Tim mckeon [facility] HB ABO GROUPING 2022-10-04 16:24:00 Tim mckeon [facility] HIV 1/2 AG-AB WITH REFLEX 2022-10-04 16:24:00 Emily [facility] POCT TEST 2022-10-04 15:16:00 Julian Lang [facility] POCT URINALYSIS W/O SPECIFIC GRAVITY 2022-10-04 15:16:00 Emily [facility] ASSIGNMENT OF BENEFITS 2022-10-04 14:31:20 Docto r Unassigned, [place] [facility] AUTHORIZATION FOR RELEASE OF PHI 2022-02-16 05:01:00 Doctor Unassigned, [place] [facility] POCT TEST 2019-12-17 20:19:00 Jarad Alejandra [facility] POCT TEST 2019-12-03 14:13:00 Shantal Khoury [facility] LAB ONLY CORONAVIRUS COVID-19 PCR GNL 2019-10-23 20:51:00 Morelia Santiago [facility] POCT FLU A AND B (MOLECULAR) 2019-10-23 00:00:00 Morelia Santiago [facility] CBC WITH DIFFERENTIAL 2019-10-19 09:34:00 Vu, Claire [facility] VENOUS CORD GAS 2019-10-18 19:53:00 Bar Silver [facility] SGOT (ASPARTATE AMINO TRANSFER) 2019-10-18 17:25:00 Caroline Montanez [facility] CREATININE 2019-10-18 17:25:00 Caroline Montanez Enid [facility] ALANINE AMINO TRANSFERASE(SGPT 2019-10-18 17:25:00 Caroline Montanez [facility] LACTATE DEHYDROGENASE 2019-10-18 17:25:00 Caroline Siegel [place] [facility] URIC ACID 2019-10-18 17:25:00 Caroline Montanez [facility] CBC WITH DIFFERENTIAL 2019-10-18 17:25:00 Caroline Siegel En[place] [facility] PROTEIN CREAT RATIO URINE RANDOM 2019-10-18 17:25:00 Caroline Montanez Enid [facility] HEPATITIS B SURFACE ANTIGEN 2019-10-18 12:34:[facility] GALV ONLY - SYPHILIS IGG/IGM 2019-10-18 12:34:00 [facility] HB ABO GROUPING 2019-10-18 12:15:00 Bar Silver [facility] RHO (D) IMMUNE GLOBULIN 2019-10-18 12:15:00 Claire Monzon [facility] POCT URINALYSIS 2019-10-09 17:37:00 Ke Alejandra [facility] POCT URINALYSIS 2019-10-02 19:01:00 Ke Alejandra [facility] POCT URINALYSIS 2019-09-18 15:30:00 Ke Alejandra [facility] POCT URINALYSIS 2019-08-21 21:17:00 Ke Alejandra [facility] FIRST TRIMESTER TRISOMY SCRN 2019-04-13 21:19:00 Salome Tay [facility] POCT URINALYSIS W/O SPECIFIC GRAVITY 2019-03-09 20:35:00 Ke Alejandra [facility] POCT TEST 2019-03-09 20:34:00 Jarad Alejandra [facility] ASSIGNMENT OF BENEFITS 2019-03-09 19:35:50 Docto r Unassigned, [place] [facility] Encounters Start Date/Time End Date/Time Encounter Type Admission Type Attending Clinicians Care Facility Care Department Encounter ID Source 2021-06-01 14:24:[address] 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 [id number] [facility] 2023-10-17 10:45:00 2023-10-17 11:43:22 Outpatient R KE ALEJANDRA 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 [id number] [facility] 2023-10-02 12:45:00 2023-10-02 13:07:30 Office Visit Ke Alejandra [facility] SHELL PRESS OPERATOR [facility] & CHILD [facility] 1.840.114 350.1.13.10 4.2.7.2.686 [id number] [facility] 2023-09-09 08:30:00 2023-09-09 09:34:04 Outpatient R KE ALEJANDRA [facility] [id number] [facility] 2023-09-09 08:30:00 2023-09-09 09:34:04 Office Visit Ke Alejandra [facility] SHELL PRESS OPERATOR [facility] & CHILD [facility] 1.84.114 350.1.13.10 4.2.7.2.686 [id number] [facility] 2023-09-02 14:30:00 2023-09-02 14:30:00 Outpatient R KE ALEJANDRA [facility] [id number] [facility] 2023-07-05 10:15:00 2023-07-05 11:01:19 Outpatient R KE ALEJANDRA [facility] [id number] [facility] 2023-07-05 10:15:00 2023-07-05 10:30:00 Routine Visit Ke Alejandra [facility] SHELL PRESS OPERATOR [facility] 1.2.840.114 350.1.13.10 4.2.7.2.686 [id number] [facility] 2023-06-05 17:55:00 2023-06-07 14:02:00 Inpatient P CATHERINE RAMIREZ [facility] KARON [id number] [facility] 2023-06-05 17:55:00 2023-06-07 14:02:00 Hospital Encounter Catherine Ramirez [facility] 1.2.840.114 350.1.13.10 4.2.7.2.686 [id number] [facility] 2023-06-07 00:00:00 2023-06-07 00:00:00 Encounter 1.2.840.1 [id number] 3.104.2.7 .[id number] 1.2.840.114 350.1.13.10 4.2.7.2.696 [id number] [facility] 2023-06-06 01:04:00 2023-06-06 12:13:00 Anesthesia Event Cam Gallagher Allison Elizabeth [facility] 1.2.840.114 350.1.13.10 4.2.7.2.686 [id number] [facility] 2023-05-31 09:00:00 2023-05-31 09:15:00 Routine Visit Debbie Delarosa [facility] SHELL PRESS OPERATOR [facility] 1.840.114 350.1.13.10 4.2.7.2.686 [id number] [facility] 2023-05-31 09:00:00 2023-05-31 09:00:00 Outpatient R RAMÓN-FLORA US, [facility] [id number] [facility] 2023-05-24 09:00:00 2023-05-24 09:24:32 Outpatient R RAMÓN-FLORA US, [facility] [id number] [facility] 2023-05-24 09:00:00 2023-05-24 09:24:32 Routine Visit Ramón-Flora us, [facility] 1.840.114 350.1.13.10 4.2.7.2.686 [id number] [facility] 2023-05-16 09:15:00 2023-05-16 09:19:31 Outpatient R RAMÓN-FLORA US, [facility] [id number] [facility] 2023-05-16 09:15:00 2023-05-16 09:19:31 Routine Visit Ramón-Flora us, [facility]LL [facility] 1.840.114 350.1.13.10 4.2.7.2.686 [id number] [facility] 2023-05-09 09:15:00 2023-05-09 09:18:13 Outpatient R RAMÓN-FLORA US, [facility] [id number] [facility] 2023-05-09 09:15:00 2023-05-09 09:18:13 Routine Visit Ramón-Flora us, [facility] SHELL PRESS OPERATOR [facility] & CHILD [facility] 1.840.114 350.1.13.10 4.2.7.2.686 [id number] [facility] 2023-05-02 15:45:00 2023-05-02 16:05:58 Outpatient R RAMÓN-FLORA US [facility] [id number] [facility] 2023-05-02 15:45:00 2023-05-02 16:05:58 Routine Visit Ramón-Flora us [facility] SHELL PRESS OPERATOR [facility] & CHILD [facility] 1.0.114 350.1.13.10 4.2.7.2.686 [id number] [facility] 2023-04-18 09:30:00 2023-04-18 09:49:34 Outpatient R RAMÓN-FLORA US [facility] [id number] [facility] 2023-04-18 09:30:00 2023-04-18 09:49:34 Routine Visit Ramón[place] us [facility] SHELL PRESS OPERATOR [facility] & CHILD [facility] 1..114 350.1.13.10 4.2.7.2.686 [id number] [facility] 2023-04-04 09:15:00 2023-04-04 09:21:00 Outpatient R THU MONTIEL FELECIA [facility] [id number] [facility] 2023-04-04 09:15:00 2023-04-04 09:21:00 Routine Visit Thu Montiel [facility] SHELL PRESS OPERATOR [facility] 1..114 350.1.13.10 4.2.7.2.686 [id number] [facility] 2023-03-24 00:00:00 2023-03-24 00:00:00 Telephone Thu Montiel [facility] SHELL PRESS OPERATOR [facility] & CHILD [facility] 1.0.114 350.1.13.10 4.2.7.2.686 [id number] [facility] 2023-03-21 10:00:00 2023-03-21 10:42:44 Outpatient R THU MONTIEL FELECIA [facility] [id number] [facility] 2023-03-21 10:00:00 2023-03-21 10:42:44 Routine Visit Thu Montiel [facility]LL [facility] 1..840.114 350.1.13.10 4.2.7.2.686 [id number] [facility] 2023-03-07 09:15:00 2023-03-07 09:25:09 [facility] [id number] [facility] 2023-03-07 09:15:00 2023-03-07 09:25:09 Routine Visit Dinesh [facility] SHELL PRESS OPERATOR [facility] & CHILD [facility] 1.840.114 350.1.13.10 4.2.7.2.686 [id number] [facility] 2023-02-18 00:00:00 2023-02-18 00:00:00 Abstract Debbie Delarosa [facility] SHELL PRESS OPERATOR [facility] & CHILD [facility] 1..840.114 350.1.13.10 4.2.7.2.686 [id number] [facility] 2023-02-07 09:15:00 2023-02-07 09:45:26 Outpatient R [facility] [id number] [facility] 2023-02-07 09:15:00 2023-02-07 09:45:26 Routine Visit Dinesh [facility] SHELL PRESS OPERATOR [facility] & CHILD [facility] 1.840.114 350.1.13.10 4.2.7.2.686 [id number] [facility] 2023-02-06 10:45:00 2023-02-06 11:45:00 Electrical Checkout Mechanic Visit Ultrasound, [facility] Catherine Ramirez Ikuvbogie [facility] SHELL PRESS OPERATOR [facility] & CHILD [facility] 1.0.114 350.1.13.10 4.2.7.2.686 [id number] [facility] 2023-02-06 10:45:00 2023-02-06 10:45:00 Outpatient P CATHERINE RAMIREZ [facility] [id number] [facility] 2023-01-10 11:00:00 2023-01-10 12:02:37 Outpatient R THU MONTIEL [facility] [id number] [facility] 2023-01-10 11:00:00 2023-01-10 12:02:37 Routine Visit Thu Montiel [facility]ILD [facility] 1..114 350.1.13.10 4.2.7.2.686 [id number] [facility] 2022-12-27 09:30:00 2022-12-27 09:31:29 Outpatient R RAMÓN-FLORA MCKOY [facility] [id number] [facility] 2022-12-27 09:30:00 2022-12-27 09:31:29 Routine Visit Ramón[place] us [facility] & CHILD [facility] 1..114 350.1.13.10 4.2.7.2.686 [id number] [facility] 2022-12-04 00:00:00 2022-12-04 00:00:00 Abstract Ramón-Flor[place] us [facility] & CHILD [facility] 1.0.114 350.1.13.10 4.2.7.2.686 [id number] [facility] 2022-11-30 10:00:00 2022-11-30 10:35:33 Electrical Checkout Mechanic Visit Lab, [facility] Corina Ren [facility] SHELL PRESS OPERATOR [facility] & CHILD [facility] 1.840.114 350.1.13.10 4.2.7.2.686 [id number] [facility] 2022-11-30 09:15:00 2022-11-30 10:24:22 Electrical Checkout Mechanic Visit 1, [facility] Us Room Ranjit Zuniga [facility] SHELL PRESS OPERATOR [facility] & CHILD [facility] 1.840.114 350.1.13.10 4.2.7.2.686 [id number] [facility] 2022-11-30 10:00:00 2022-11-30 10:00:00 Outpatient P CORINA REN [facility] [id number] [facility] 2022-11-29 09:30:00 2022-11-29 09:30:00 Routine Visit Ramón-[place] us [facility] CHILD [facility] 1.840.114 350.1.13.10 4.2.7.2.686 [id number] [facility] 2022-11-29 09:30:00 2022-11-29 09:10:18 Outpatient R RAMÓN-FLORA [facility] [id number] 2022-11-22 00:00:00 2022-11-22 00:00:00 Abstract Ramón-[place] us [facility] & CHILD [facility] 1.840.114 350.1.13.10 4.2.7.2.686 [id number] [facility] 2022-11-15 11:30:00 2022-11-15 12:06:03 Electrical Checkout Mechanic Visit 2, [facility] Us Room Octavio Hargrove [facility] SHELL PRESS OPERATOR [facility] 1.2840.114 350.1.13.10 4.2.7.2.686 [id number] [facility] 2022-11-15 11:30:00 2022-11-15 11:30:00 Outpatient P OCTAVIO HARGROVE SHANNON [facility] [id number] [facility] 2022-11-01 15:15:00 2022-11-01 15:26:58 Outpatient R RAMÓN-FLORA US [facility] [id number] [facility] 2022-11-01 15:15:00 2022-11-01 15:26:58 Routine Visit Ramón[place] us [facility] SHELL PRESS OPERATOR [facility] 1.840.114 350.1.13.10 4.2.7.2.686 [id number] [facility] 2022-10-04 09:45:00 2022-10-04 10:34:58 Outpatient R RAMÓN-FLORA US [facility] [id number] [facility] 2022-10-04 09:45:00 2022-10-04 10:34:58 Initial Visit Ramón[place] us [facility] SHELL PRESS OPERATOR [facility] & CHILD [facility] 1.2840.114 350.1.13.10 4.2.7.2.686 [id number] [facility] 2022-10-04 00:00:00 2022-10-04 00:00:00 Orders Only Doctor Unassigned, [place] [facility] 1.2840.114 350.1.13.10 4.2.7.2.686 [id number] [facility] 2022-02-16 00:00:00 2022-02-16 00:00:00 Orders Only Doctor Unassigned, [place] [facility] 1..840.114 350.1.13.10 4.2.7.2.686 [id number] [facility] 2020-03-17 14:45:00 2020-03-17 14:45:00 Outpatient R KHOURYVIET [facility] [id number] [facility] 2019-12-17 14:42:10 2019-12-17 15:53:07 Nurse Visit Visit, [facility] Nurse Ke Alejandra [facility] SHELL PRESS OPERATOR [facility] 1..840.114 350.1.13.10 4.2.7.2.686 [id number] [facility] 2019-12-17 14:30:00 2019-12-17 14:30:00 Outpatient R [facility] [id number] [facility] 2019-12-03 08:51:11 2019-12-03 09:31:27 Office Visit KhouryViet [facility] SHELL PRESS OPERATOR [facility] 1..840.114 350.1.13.10 4.2.7.2.686 [id number] [facility] 2019-12-03 08:45:00 2019-12-03 08:45:00 Outpatient Nelson KHOURYVIET [facility] [id number] [facility] 2019-12-01 09:00:00 2019-12-01 09:00:00 Outpatient Nelson VIET KHOURY [facility] [id number] [facility] 2019-11-10 09:30:00 2019-11-10 09:30:00 Outpatient Nelson VIET KHOURY [facility] [id number] [facility] 2019-11-10 09:00:00 2019-11-10 09:00:00 Outpatient VIET MONROY [facility] [id number] [facility] 2019-11-10 07:56:19 2019-11-10 08:11:19 Telemedici ne Visit Viet Khoury [facility] SHELL PRESS OPERATOR [facility] 1.2.840.114 350.1.13.10 4.2.7.2.686 [id number] [facility] 2019-10-28 00:00:00 2019-10-28 00:00:00 Telephone [facility], Acute [facility] Office [address] 1.2840.114 350.1.13.10 4.2.7.2.686 [id number] [facility] 2019-10-23 13:27:36 2019-10-23 15:14:32 Office Visit Asael, Acute Care Clinic Morelia Santiago Bill [facility] 1.0.114 350.1.13.10 4.2.7.2.686 [id number] [facility] 2019-10-23 13:20:00 2019-10-23 13:20:00 Outpatient R JACK, MORELIA [facility] [id number] [facility] 2019-10-22 00:00:00 2019-10-22 00:00:00 Telephone Viet Khoury [facility] SHELL PRESS OPERATOR [facility] CHILD [facility] 1.0.114 350.1.13.10 4.2.7.2.686 [id number] [facility] 2019-10-18 05:53:00 2019-10-19 19:07:00 Hospital Encounter PaulinaAlexys rogel [facility] 1.2840.114 350.1.13.10 4.2.7.2.686 [id number] [facility] 2019-10-09 10:51:47 2019-10-09 11:35:08 Routine Visit Ke Alejandra [facility] SHELL PRESS OPERATOR [facility] & CHILD [facility] 1.2.840.114 350.1.13.10 4.2.7.2.686 [id number] [facility] 2019-10-09 11:00:00 2019-10-09 11:00:00 Outpatient R KE ALEJANDRA [facility] [id number] [facility] 2019-10-08 00:00:00 2019-10-08 00:00:00 Abstract Ke Alejandra [facility] SHELL PRESS OPERATOR [facility] 1..840.114 350.1.13.10 4.2.7.2.686 [id number] [facility] 2019-10-07 13:29:29 2019-10-07 13:59:29 Electrical Checkout Mechanic Visit 1, [facility] Us Room Cody Vásquez, Octavio Kim, Raheem Calvo [facility] .840.114 350.1.13.10 4.2.7.2.686 [id number] [facility] 2019-10-07 13:30:00 2019-10-07 13:30:00 Outpatient P RAHEEM HAM [facility] [id number] [facility] 2019-10-05 15:30:00 2019-10-05 15:30:00 Outpatient P CODY VÁSQUEZ [facility] [id number] [facility] 2019-10-02 12:47:43 2019-10-02 13:38:28 Routine Visit QuinJohnathan beardilola Vi [facility] SHELL PRESS OPERATOR [facility] .840.114 350.1.13.10 4.2.7.2.686 [id number] [facility] 2019-10-02 12:45:00 2019-10-02 12:45:00 Outpatient R QUINPETERCORTESJOHNATHANKE [facility] [id number] [facility] 2019-09-18 09:16:38 2019-09-18 09:46:39 Routine Visit Ke Alejandra [facility] SHELL PRESS OPERATOR [facility] 1.2.840.114 350.1.13.10 4.2.7.2.686 [id number] [facility] 2019-09-07 00:00:00 2019-09-07 00:00:00 Abstract Ke Alejandra [facility] SHELL PRESS OPERATOR [facility] CHILD [facility] 1.2.840.114 350.1.13.10 4.2.7.2.686 [id number] [facility] 2019-08-21 15:04:28 2019-08-21 15:36:35 Routine Visit Ke Alejandra [facility] SHELL PRESS OPERATOR [facility] 1.2.840.114 350.1.13.10 4.2.7.2.686 [id number] [facility] 2019-04-16 00:00:00 2019-04-16 00:00:00 Abstract Ke Alejandra [facility] SHELL PRESS OPERATOR [facility] CHILD [facility] 1.2.840.114 350.1.13.10 4.2.7.2.686 [id number] [facility] 2019-04-13 15:05:51 2019-04-13 15:23:31 Electrical Checkout Mechanic Visit Lab, [facility] Jasvir [facility] 1.2.840.114 350.1.13.10 4.2.7.2.686 [id number] [facility] 2019-04-13 14:09:38 2019-04-13 14:54:38 Electrical Checkout Mechanic Visit 5, [facility] Us Berenice Bobo [facility] 1.2.840.114 350.1.13.10 4.2.7.2.686 [id number] [facility] 2019-04-13 00:00:00 2019-04-13 00:00:00 Case Management Salome Tay [facility] 1.84.114 350.1.13.10 4.2.7.2.686 [id number] [facility] 2019-03-09 15:20:28 2019-03-09 16:37:43 Initial Visit Ke Alejandra [facility] SHELL PRESS OPERATOR [facility] 1.84.114 350.1.13.10 4.2.7.2.686 [id number] [facility] 2019-03-09 00:00:00 2019-03-09 00:00:00 Orders Only Doctor Unassigned, [place] [facility] 1.840.114 350.1.13.10 4.2.7.2.686 [id number] [facility] Results Test Description Test Time Test Comments Results Result Co mments Source [facility] [id number] 16:08:00* Test Item Value Reference Range Interpretation Comme nts POCT PREG (test code = 1605) Negative On board controls acceptable with C Line (test code = 3574) Yes POCT PREG LOT # (test code = 3575) POCT PREG TEST DATE ( test code = 3576) [facility] [id number] 18:56:00* Test Item Value Reference Range Interpretation Comme nts POCT PREG (test code = 1605) Negative On board controls acceptable with C Line (test code = 3574) Yes POCT PREG LOT # (test code = 3575) POCT PREG TEST DATE ( test code = 3576) [facility] [id number] 18:56:00* Test Item Value Reference Range Interpretation Comme nts POCT PREG (test code = 1605) Negative On board controls acceptable with C Line (test code = 3574) Yes POCT PREG LOT # (test code = 3575) POCT PREG TEST DATE ( test code = 3576) [facility] [id number] 15:03:00* Test Item Value Reference Range Interpretation Comme nts POCT PREG (test code = 1605) Negative On board controls acceptable with C Line (test code = 3574) Yes POCT PREG LOT # (test code = 3575) POCT PREG TEST DATE ( test code = 3576) [facility] [id number] 15:03:00* Test Item Value Reference Range Interpretation Comme nts POCT PREG (test code = 1605) Negative On board controls acceptable with C Line (test code = 3574) Yes POCT PREG LOT # (test code = 3575) POCT PREG TEST DATE ( test code = 3576) [facility] IMMUNE [id number] 20:23:20* Test Item Value Reference Range Interpretation Comme nts RHIG CANDIDATE? (test code = 5188) No- see comment Patient is not a candidate for RhIg- Patient is Rh Positive.Performed at [facility] Laboratory Services - [facility] Blood [address] [address]Pdiw Free: [phone] No. [id number] [facility] Center[facility] - SYPHILIS [id number] 14:55:42* Test Item Value Reference Range Interpretation Comme nts Syphilis IgG/IgM (test code = 60221-2) Non-reactive Non-reactive JOYCE (test code = JOYCE) Non-reactive - No serologic evidence of T. pallidum infection. Cannot exclude incubating or early syphilis. Submit a second specimen in 2-4 weeks if syphilis is clinically suspected. Equivocal - Further testing to follow. Reactive - Further testing to follow. Lab Interpretation (test code = 53523-9) Normal [facility] Center[facility] Cord [id number] 14:46:18* Test Item Value Reference Range Interpretation Comme nts VENOUS BASE EXCESS, CORD (test code = 5510555329) -1.6 mEq/L VENOUS PH, CORD (test code = 3271686992) 7.33 7.25-7.45 VENOUS PC02, CORD (test code = 0751799557) 49 See_Comment [Automated messa ge] The system which generated this result transmitted reference range: 27 - 49 mmHg. The reference range was not used to interpret this result as normal/abnormal. VENOUS PO2, CORD (test code = 3884526399) 30 See_Comment [Automated me ssage] The system which generated this result transmitted reference range: 17 - 41 mmHg. The reference range was not used to interpret this result as normal/abnormal. VENOUS BICARBONATE, CORD (test code = 9761225020) 25 See_Comment QUES [Automated message] The system which generated this result transmitted reference range: 12 - 29 mEq/L. The reference range was not used to interpret this result as normal/abnormal. [facility] CenterArterial Cord [id number] 14:45:58* Test Item Value Reference Range Interpretation Comme nts BASE EXCESS, CORD (test code = 1200766952) -2.1 mEq/L AC PH, CORD (BEAKER) (test code = 9813228319) 7.33 7.18-7.38 PC02, CORD (test code = 2071419382) 47 See_Comment [Automated messa ge] The system which generated this result transmitted reference range: 32 - 66 mmHg. The reference range was not used to interpret this result as normal/abnormal. PO2, CORD (test code = 8034198099) 29 See_Comment [Automated messa ge] The system which generated this result transmitted reference range: 10 - 30 mmHg. The reference range was not used to interpret this result as normal/abnormal. BICARBONATE, CORD (test code = 1410700705) 24 See_Comment [Automated messa ge] The system which generated this result transmitted reference range: 17 - 27 mEq/L. The reference range was not used to interpret this result as normal/abnormal. [facility] CenterHepatitis B Surface [id number] 03:31:29 * Test Item Value Reference Range Interpretation Comme nts HBsAg Semi-Quantitative (taar t code = 5195-3) 0.14 Negative [facility] CenterType and Screen - ONCE [id number] 01:35:00 * Test Item Value Reference Range Interpretation Comme nts ABO & RH (test code = 20) O POSITIVE IAT (test code = 1185) Negative [facility] UR[facility] W SPECIFIC [id number] 14:00:00* Test Item Value Reference Range Interpretation Comme nts POCT U SP GRAV (test code = 3255) n/a 1.005-1.025 POCT PH U (test code = 3254) 7 mg/dl 5-8 POCT U LEUK EST (test code = 3263) neg Negative - Negative POCT U NIT (test code = 3262) neg Negative - Negati ve POCT U PROT (test code = 3259) neg Negative - Negat mat POCT U GLU (test code = 3256) neg Negative - Negati ve POCT U KETONE (test code = 3258) neg Negative - Neg ative POCT U UROBILI (test code = 3260) n/a 0.2-1 POCT U BILI (test code = 3261) n/a Negative - Negat mat POCT U BLD (test code = 3257) neg Negative - Negati ve POCT U COLOR (test code = 3266) yellow POCT U APPEAR (test code = 3267) [facility] URINALYSIS W SPECIFIC [id number] 13:57:00* Test Item Value Reference Range Interpretation Comme nts POCT U SP GRAV (test code = 3255) . 1.005-1.025 POCT PH U (test code = 3254) 6 mg/dl 5-8 POCT U LEUK EST (test code = 3263) neg Negative - Negative POCT U NIT (test code = 3262) neg Negative - Negati ve POCT U PROT (test code = 3259) neg Negative - Negat mat POCT U GLU (test code = 3256) neg Negative - Negati ve POCT U KETONE (test code = 3258) neg Negative - Neg ative POCT U UROBILI (test code = 3260) . 0.2-1 POCT U BILI (test code = 3261) . Negative - Negat mat POCT U BLD (test code = 3257) neg Negative - Negati ve POCT U COLOR (test code = 3266) POCT U APPEAR (test code = 3267) [facility] URINALYSIS W SPECIFIC [id number] 14:19:00* Test Item Value Reference Range Interpretation Comme nts POCT U SP GRAV (test code = 3255) . 1.005-1.025 POCT PH U (test code = 3254) 7 mg/dl 5-8 POCT U LEUK EST (test code = 3263) trace Negative - Negative POCT U NIT (test code = 3262) neg Negative - Negati ve POCT U PROT (test code = 3259) neg Negative - Negat mat POCT U GLU (test code = 3256) neg Negative - Negati ve POCT U KETONE (test code = 3258) neg Negative - Neg ative POCT U UROBILI (test code = 3260) . 0.2-1 POCT U BILI (test code = 3261) . Negative - Negat mat POCT U BLD (test code = 3257) neg Negative - Negati ve POCT U COLOR (test code = 3266) POCT U APPEAR (test code = 3267) [facility] URINALYSIS W SPECIFIC [id number] 14:02:00* Test Item Value Reference Range Interpretation Comme nts POCT U SP GRAV (test code = 3255) . 1.005-1.025 POCT PH U (test code = 3254) 6 mg/dl 5-8 POCT U LEUK EST (test code = 3263) neg Negative - Negative POCT U NIT (test code = 3262) neg Negative - Negati ve POCT U PROT (test code = 3259) neg Negative - Negat mat POCT U GLU (test code = 3256) neg Negative - Negati ve POCT U KETONE (test code = 3258) neg Negative - Neg ative POCT U UROBILI (test code = 3260) . 0.2-1 POCT U BILI (test code = 3261) . Negative - Negat mat POCT U BLD (test code = 3257) neg Negative - Negati ve POCT U COLOR (test code = 3266) POCT U APPEAR (test code = 3267) [facility] URINALYSIS W SPECIFIC [id number] 20:49:00* Test Item Value Reference Range Interpretation Comme nts POCT U SP GRAV (test code = 3255) . 1.005-1.025 POCT PH U (test code = 3254) 8 mg/dl 5-8 POCT U LEUK EST (test code = 3263) neg Negative - Negative POCT U NIT (test code = 3262) neg Negative - Negati ve POCT U PROT (test code = 3259) neg Negative - Negat mat POCT U GLU (test code = 3256) neg Negative - Negati ve POCT U KETONE (test code = 3258) neg Negative - Neg ative POCT U UROBILI (test code = 3260) . 0.2-1 POCT U BILI (test code = 3261) . Negative - Negat mat POCT U BLD (test code = 3257) neg Negative - Negati ve POCT U COLOR (test code = 3266) POCT U APPEAR (test code = 3267) [facility] URINALYSIS W SPECIFIC [id number] 14:20:00* Test Item Value Reference Range Interpretation Comme nts POCT U SP GRAV (test code = 3255) . 1.005-1.025 POCT PH U (test code = 3254) 6 mg/dl 5-8 POCT U LEUK EST (test code = 3263) 1+ Negative - Negative POCT U NIT (test code = 3262) neg Negative - Negati ve POCT U PROT (test code = 3259) trace Negative - Negat mat POCT U GLU (test code = 3256) 50 Negative - Negati ve POCT U KETONE (test code = 3258) neg Negative - Neg ative POCT U UROBILI (test code = 3260) . 0.2-1 POCT U BILI (test code = 3261) . Negative - Negat mat POCT U BLD (test code = 3257) neg Negative - Negati ve POCT U COLOR (test code = 3266) POCT U APPEAR (test code = 3267) [facility] URINALYSIS W/O SPECIFIC [id number] 14:17:00* Test Item Value Reference Range Interpretation Comme nts POCT PH U (test code = 3254) 7 mg/dl 5-8 POCT U LEUK EST (test code = 3263) Negative Negative - Negative POCT U NIT (test code = 3262) Negative Negative - Negati ve POCT U PROT (test code = 3259) Trace Negative - Negat mat POCT U GLU (test code = 3256) Negative Negative - Negati ve POCT U KETONE (test code = 3258) Negative Negative - Neg ative POCT U BLD (test code = 3257) Negative Negative - Negati ve [facility] URINALYSIS W/O SPECIFIC [id number] 15:06:00* Test Item Value Reference Range Interpretation Comme nts POCT PH U (test code = 3254) 6 mg/dl 5-8 POCT U LEUK EST (test code = 3263) + Negative - Negative POCT U NIT (test code = 3262) Negative Negative - Negati ve POCT U PROT (test code = 3259) Trace Negative - Negat mat POCT U GLU (test code = 3256) Negative Negative - Negati ve POCT U KETONE (test code = 3258) Negative Negative - Neg ative POCT U BLD (test code = 3257) Negative Negative - Negati ve [facility] URINALYSIS W/O SPECIFIC [id number] 14:14:00* Test Item Value Reference Range Interpretation Comme nts POCT PH U (test code = 3254) 7 mg/dl 5-8 POCT U LEUK EST (test code = 3263) Negative Negative - Negative POCT U NIT (test code = 3262) Negative Negative - Negati ve POCT U PROT (test code = 3259) Trace Negative - Negat mat POCT U GLU (test code = 3256) Negative Negative - Negati ve POCT U KETONE (test code = 3258) Negative Negative - Neg ative POCT U BLD (test code = 3257) Negative Negative - Negati ve [facility] URINALYSIS W/O SPECIFIC [id number] 14:17:00* Test Item Value Reference Range Interpretation Comme nts POCT PH U (test code = 3254) 8 mg/dl 5-8 POCT U LEUK EST (test code = 3263) Negative Negative - Negative POCT U NIT (test code = 3262) Negative Negative - Negati ve POCT U PROT (test code = 3259) Trace Negative - Negat mat POCT U GLU (test code = 3256) Negative Negative - Negati ve POCT U KETONE (test code = 3258) Negative Negative - Neg ative POCT U BLD (test code = 3257) Negative Negative - Negati ve [facility] URINALYSIS W/O SPECIFIC [id number] 16:33:00* Test Item Value Reference Range Interpretation Comme nts POCT PH U (test code = 3254) 7 mg/dl 5-8 POCT U LEUK EST (test code = 3263) + Negative - Negative POCT U NIT (test code = 3262) Negative Negative - Negati ve POCT U PROT (test code = 3259) Trace Negative - Negat mat POCT U GLU (test code = 3256) Negative Negative - Negati ve POCT U KETONE (test code = 3258) Negative Negative - Neg ative POCT U BLD (test code = 3257) Negative Negative - Negati ve [facility] URINALYSIS W SPECIFIC [id number] 14:11:00* Test Item Value Reference Range Interpretation Comme nts POCT U SP GRAV (test code = 3255) . 1.005-1.025 POCT PH U (test code = 3254) 6 mg/dl 5-8 POCT U LEUK EST (test code = 3263) neg Negative - Negative POCT U NIT (test code = 3262) neg Negative - Negati ve POCT U PROT (test code = 3259) neg Negative - Negat mat POCT U GLU (test code = 3256) neg Negative - Negati ve POCT U KETONE (test code = 3258) neg Negative - Neg ative POCT U UROBILI (test code = 3260) . 0.2-1 POCT U BILI (test code = 3261) . Negative - Negat mat POCT U BLD (test code = 3257) neg Negative - Negati ve POCT U COLOR (test code = 3266) POCT U APPEAR (test code = 3267) [facility] URINALYSIS W SPECIFIC [id number] 14:00:00* Test Item Value Reference Range Interpretation Comme nts POCT U SP GRAV (test code = 3255) . 1.005-1.025 POCT PH U (test code = 3254) 7 mg/dl 5-8 POCT U LEUK EST (test code = 3263) neg Negative - Negative POCT U NIT (test code = 3262) neg Negative - Negati ve POCT U PROT (test code = 3259) neg Negative - Negat mat POCT U GLU (test code = 3256) neg Negative - Negati ve POCT U KETONE (test code = 3258) neg Negative - Neg ative POCT U UROBILI (test code = 3260) . 0.2-1 POCT U BILI (test code = 3261) . Negative - Negat mat POCT U BLD (test code = 3257) neg Negative - Negati ve POCT U COLOR (test code = 3266) POCT U APPEAR (test code = 3267) [facility] [id number] 20:16:00* Test Item Value Reference Range Interpretation Comme nts POCT U SP GRAV (test code = 3255) . 1.005-1.025 POCT PH U (test code = 3254) 5 mg/dl 5-8 POCT U LEUK EST (test code = 3263) 2+ Negative - Negative POCT U NIT (test code = 3262) neg Negative - Negati ve POCT U PROT (test code = 3259) neg Negative - Negat mat POCT U GLU (test code = 3256) neg Negative - Negati ve POCT U KETONE (test code = 3258) neg Negative - Neg ative POCT U UROBILI (test code = 3260) . 0.2-1 POCT U BILI (test code = 3261) . Negative - Negat mat POCT U BLD (test code = 3257) neg Negative - Negati ve POCT U COLOR (test code = 3266) POCT U APPEAR (test code = 3267) [facility] WORK[facility], BLOOD [id number] 08:03:43 * Test Item Value Reference Range Interpretation Comme nts ABO & RH (test code = 20) O POSITIVE [facility] Laboratory [facility] - [facility] Blood [place] [id number] Free: [phone] No. [id number] IAT (test code = 1185) Negative Per[facility] at [facility] Laboratory Services [facility] Blood [address] [address]Buon Free: [phone] No. [id number] [facility] URINALYSIS W/O SPECIFIC [id number] 15:17:00* Test Item Value Reference Range Interpretation Comme nts POCT PH U (test code = 3254) 6 mg/dl 5-8 POCT U LEUK EST (test code = 3263) trace Negative - Negative POCT U NIT (test code = 3262) neg Negative - Negati ve POCT U PROT (test code = 3259) neg Negative - Negat mat POCT U GLU (test code = 3256) neg Negative - Negati ve POCT U KETONE (test code = 3258) neg Negative - Neg ative POCT U BLD (test code = 3257) neg Negative - Negati ve [facility] [id number] 15:16:00* Test Item Value Reference Range Interpretation Comme nts POCT PREG (test code = 1605) Positive On board controls acceptable with C Line (test code = 3574) Yes POCT PREG LOT # (test code = 3575) POCT PREG TEST DATE ( test code = 3576) [facility] [id number] 20:21:00* Test Item Value Reference Range Interpretation Comme nts POCT PREG (test code = 1605) Negative On board controls acceptable with C Line (test code = 3574) Yes POCT PREG LOT # (test code = 3575) POCT PREG TEST DATE ( test code = 3576) [facility] [id number] 20:21:00* Test Item Value Reference Range Interpretation Comme nts POCT PREG (test code = 1605) Negative On board controls acceptable with C Line (test code = 3574) Yes POCT PREG LOT # (test code = 3575) POCT PREG TEST DATE ( test code = 3576) [facility] [id number] 14:13:00* Test Item Value Reference Range Interpretation Comme nts POCT PREG (test code = 1605) Negative On board controls acceptable with C Line (test code = 3574) Yes POCT PREG LOT # (test code = 3575) POCT PREG TEST DATE ( test code = 3576) [facility] [id number] 14:13:00* Test Item Value Reference Range Interpretation Comme nts POCT PREG (test code = 1605) Negative On board controls acceptable with C Line (test code = 3574) Yes POCT PREG LOT # (test code = 3575) POCT PREG TEST DATE ( test code = 3576) [facility]AVIR[facility] COVID-19 PCR GNL 2019-10-25 15:05:00* Test Item Value Reference Range Interpretation Comme nts Coronavirus COVID-19 (test code = 2162952367) Not Detected Not Detected JOYCE (test code = JOYCE) Not Detected: A negative result does not preclude COVID-19 infection and should not be used as the sole basis for treatment or other patient management decisions. Negative results must be combined with clinical observations, patient history, and epidemiological information. Presumptive Positive: Specimen will be sent to [facility] for confirmation testing. Inconclusive: Specimen will be sent to [facility] for additional testing. Invalid: Please collect a new specimen for repeat patient testing. Disclaimer:This test was developed and its performance characteristics determined by [facility]. It has not been cleared or approved by the [place] Food and Drug Administration (FDA). An Emergency Use Authorization (EUA) application is under preparation and FDA approval process. This test is used for clinical purposes. It should not be regarded as investigational or for research. This laboratory is certified under the Clinical Laboratory Improvement Amendments (CLIA) as qualified to perform high complexity clinical laboratory testing. Not Detected: A negative result does not preclude COVID-19 infection and should not be used as the sole basis for treatment or other patient management decisions. Negative results must be combined with clinical observations, patient history, and epidemiological information. Presumptive Positive: Specimen will be sent to [facility] for confirmation testing. Inconclusive: Specimen will be sent to [facility] for additional testing. Invalid: Please collect a new specimen for repeat patient testing. Disclaimer:This test was developed and its performance characteristics determined by [facility]. It has not been cleared or approved by the [place] Food and Drug Administration (FDA). An Emergency Use Authorization (EUA) application is under preparation and FDA approval process. This test is used for clinical purposes. It should not be regarded as investigational or for research. This laboratory is certified under the Clinical Laboratory Improvement Amendments (CLIA) as qualified to perform high complexity clinical laboratory testing. Lab Interpretation (test code = 74688-3) Normal [facility] CORONAVIRUS COVID-19 PCR GNL 2019-10-25 15:05:00* Test Item Value Reference Range Interpretation Comme nts Coronavirus COVID-19 (test code = 4836328971) Not Detected Not Detected JOYCE (test code = JOYCE) Not Detected: A negative result does not preclude COVID-19 infection and should not be used as the sole basis for treatment or other patient management decisions. Negative results must be combined with clinical observations, patient history, and epidemiological information. Presumptive Positive: Specimen will be sent to [facility] for confirmation testing. Inconclusive: Specimen will be sent to [facility] for additional testing. Invalid: Please collect a new specimen for repeat patient testing. Disclaimer:This test was developed and its performance characteristics determined by [facility]. It has not been cleared or approved by the [place] Food and Drug Administration (FDA). An Emergency Use Authorization (EUA) application is under preparation and FDA approval process. This test is used for clinical purposes. It should not be regarded as investigational or for research. This laboratory is certified under the Clinical Laboratory Improvement Amendments (CLIA) as qualified to perform high complexity clinical laboratory testing. Not Detected: A negative result does not preclude COVID-19 infection and should not be used as the sole basis for treatment or other patient management decisions. Negative results must be combined with clinical observations, patient history, and epidemiological information. Presumptive Positive: Specimen will be sent to [facility] for confirmation testing. Inconclusive: Specimen will be sent to [facility] for additional testing. Invalid: Please collect a new specimen for repeat patient testing. Disclaimer:This test was developed and its performance characteristics determined by [facility]. It has not been cleared or approved by the US Food and Drug Administration (FDA). An Emergency Use Authorization (EUA) application is under preparation and FDA approval process. This test is used for clinical purposes. It should not be regarded as investigational or for research. This laboratory is certified under the Clinical Laboratory Improvement Amendments (CLIA) as qualified to perform high complexity clinical laboratory testing. Lab Interpretation (test code = 25380-4) Normal [facility] FLU A AND B (MOLECULAR)2019-10-23 20:18:00* Test Item Value Reference Range Interpretation Comme nts POCT INFLUENZA A (test code = 3840) Negative Negative - Negative POCT INFLUENZA B (test code = 3841) Negative Negative - Negative [facility] FLU A AND B (MOLECULAR)2019-10-23 20:18:00* Test Item Value Reference Range Interpretation Comme nts POCT INFLUENZA A (test code = 3840) Negative Negative - Negative POCT INFLUENZA B (test code = 3841) Negative Negative - Negative [facility] [id number] 10:26:00* Test Item Value Reference Range Interpretation Comme nts WBC (test code = 6690-2) See_Comment [Automated messa ge] The system which generated this result transmitted reference range: 4.50 - 13.50 10*3/?L. The reference range was not used to interpret this result as normal/abnormal. RBC (test code = 789-8) See_Comment L [Automated messa ge] The system which generated this result transmitted reference range: 4.10 - 5.10 10*6/?L. The reference range was not used to interpret this result as normal/abnormal. HGB (test code = 718-7) 9.8 g/dL 12-16 L HCT (test code = 4544-3) 29.9 % 36-45 L MCV (test code = 787-2) 86.9 fL 78-95 MCH (test code = 785-6) 28.5 pg 26-32 MCHC (test code = 786-4) 32.8 g/dL 32-36 RDW-SD (test code = 58593-4) 53.2 fL 38.5-49 H RDW-CV (test code = 788-0) 16.9 % 11.5-14 H PLT (test code = 777-3) See_Comment L [Automated messa ge] The system which generated this result transmitted reference range: 135 - 361 10*3/?L. The reference range was not used to interpret this result as normal/abnormal. MPV (test code = 43886-3) 13.4 fL 9.4-13.3 H IPF % (test code = 0192374469) 22.4 % 0-7.4 H Platelet count measured by fluorescence method. NRBC/100 WBC (test code = 5035305626) See_Comment [Automated me ssage] The system which generated this result transmitted reference range: 0.0 - 10.0 /100 WBCs. The reference range was not used to interpret this result as normal/abnormal. NRBC x10^3 (test code = 9852963197) <0.01 See_Comment [Automated messa ge] The system which generated this result transmitted reference range: 10*3/?L. The reference range was not used to interpret this result as normal/abnormal. GRAN MAT (NEUT) % (test code = 770-8) 71.8 % IMM GRAN % (test code = 6939060855) 0.30 % LYMPH % (test code = 736-9) 21.2 % MONO % (test code = 5905-5) 6.2 % EOS % (test code = 713-8) 0.3 % BASO % (test code = 706-2) 0.2 % GRAN MAT x10^3(ANC) (test code = 5533118870) 6.79 10*3/uL 1.5-10.3 IMM GRAN x10^3 (test code = 4485237319) 0.03 10*3/uL 0-0.06 LYMPH x10^3 (test code = 731-0) 2.01 10*3/uL 0.7-7.4 MONO x10^3 (test code = 742-7) 0.59 10*3/uL 0-0.5 H EOS x10^3 (test code = 711-2) 0.03 10*3/uL 0-0.4 BASO x10^3 (test code = 704-7) <0.03 0-0.1 Lab Interpretation (test code = 37590-9) Abnormal [facility] IMMUNE [id number] 02:20:17* Test Item Value Reference Range Interpretation Comme nts RHIG CANDIDATE? (test code = 5055) No- see comment Patient is not a candidate for RhIg- Patient is Rh Positive.Performed at [facility] Laboratory Services - [facility] Blood [address] [address] Free: [phone] No. [id number] [facility] CenterVENOUS CORD [id number] 20:11:00* Test Item Value Reference Range Interpretation Comme [facility] VENOUS BASE EXCESS, CORD (test code = 4093701502) mEq/L VENOUS PH, CORD (test code = 5726302766) 7.25-7.45 VENOUS PC02, CORD (test code = 7676167418) See_Comment [Automated me ssage] The system which generated this result transmitted reference range: 27 - 49 mmHg. The reference range was not used to interpret this result as normal/abnormal. VENOUS PO2, CORD (test code = 5408546106) See_Comment H [Automated me ssage] The system which generated this result transmitted reference range: 17 - 41 mmHg. The reference range was not used to interpret this result as normal/abnormal. VENOUS BICARBONATE, CORD (test code = 1332239271) See_Comment [Automa elizabeth message] The system which generated this result transmitted reference range: 12 - 29 mEq/L. The reference range was not used to interpret this result as normal/abnormal. Lab Interpretation (test code = 57779-5) Abnormal [facility] Center[facility] Acid [id number] 18:51:00* Test Item Value Reference Range Interpretation Comme [facility] URIC ACID (test code = 3750948510) 4.8 mg/dL 2.9-6 Lab Interpretation (test cod e = 57917-2) Normal [facility] [id number] 18:51:00* Test Item Value Reference Range Interpretation Comme [facility] CREATININE (test code = 8324019614) 0.48 mg/dL 0.5-1.04 L eGFR Calculation (Non-) (test code = 4563127831) mL/min/1.73m2 eGFR Calculation () (test code = 4689674032) mL/min/1.73m2 JOYCE (test code = JOYCE) Association of Glomerular Filtration Rate (GFR) and Staging of Kidney Disease* + --+ --+ ------+| GFR (mL/min/1.73 m2) ?| With Kidney Damage ?| ?Without Kidney Damage+ --------+ --------+ +| ?>90 ?| ?Stage one ?| ? Normal ?+ ---+ ---+ -------+| ?60-89 ?| ?Stage two ?| ? Decreased GFR ? + --+ --+ ------+| ?30-59 ?| ?Stage three ?| ? Stage three ? + --+ --+ ------+| ?15-29 ?| ?Stage four ? | ? Stage four ?+ ---+ ---+ -------+| ?<15 (or dialysis) ? ?| ?Stage five ? | ? Stage five ?+ ---+ ---+ -------+ *Each stage assumes the associated GFR level has been in effect for at least three months. ?Stages 1 to 5, with or without kidney disease, indicate chronic kidney disease. Notes: Determination of stages one and two (with eGFR >59mL/min/1.73 m2) requires estimation of kidney damage for at least three months as defined by structural or functional abnormalities of the kidney, manifested by either:Pathological abnormalities or Markers of kidney damage (including abnormalities in the composition of the blood or urine or abnormalities in imaging tests). Lab Interpretation (test code = 71393-2) Abnormal [facility] (Asparate Amino Transfer)2019-10-18 18:51:00* Test Item Value Reference Range Interpretation Comme nts AST(SGOT) (test code = 9516159226) 22 U/L 13-40 Slight hemolysis Lab Interpretation (test cod e = 77204-2) Normal [facility] CenterAlanine Amino Transferase (SGPT)2019-10-18 18:51:00* Test Item Value Reference Range Interpretation Comme nts ALTv (test code = 1742-6) 8 U/L 5-35 Lab Interpretation (test cod e = 73037-4) Normal [facility] CenterLactate [id number] 18:51:00* Test Item Value Reference Range Interpretation Comme nts LDH (test code = 6584396874) 390 U/L 300-600 Lab Interpretation (test cod e = 86399-0) Normal [facility]CBC WITH [id number] 18:09:00* Test Item Value Reference Range Interpretation Comme nts WBC (test code = 6690-2) See_Comment [Automated [employer]] The system which generated this result transmitted reference range: 4.50 - 13.50 10*3/?L. The reference range was not used to interpret this result as normal/abnormal. RBC (test code = 789-8) See_Comment L [Automated [employer] ge] The system which generated this result transmitted reference range: 4.10 - 5.10 10*6/?L. The reference range was not used to interpret this result as normal/abnormal. HGB (test code = 718-7) 11.6 g/dL 12-16 L HCT (test code = 4544-3) 34.5 % 36-45 L MCV (test code = 787-2) 85.0 fL 78-95 MCH (test code = 785-6) 28.6 pg 26-32 MCHC (test code = 786-4) 33.6 g/dL 32-36 RDW-SD (test code = 28180-5) 54.4 fL 38.5-49 H RDW-CV (test code = 788-0) 17.5 % 11.5-14 H PLT (test code = 777-3) See_Comment L [Automated [employer] ge] The system which generated this result transmitted reference range: 135 - 361 10*3/?L. The reference range was not used to interpret this result as normal/abnormal. MPV (test code = 96976-2) Not Measured IPF % (test code = 1853907970) 20.9 % 0-7.4 H Platelet count measured by fluorescence method. NRBC/100 WBC (test code = 8861525884) See_Comment [Automated [employer] ssage] The system which generated this result transmitted reference range: 0.0 - 10.0 /100 WBCs. The reference range was not used to interpret this result as normal/abnormal. NRBC x10^3 (test code = 7557306425) <0.01 See_Comment [Automated [employer] ge] The system which generated this result transmitted reference range: 10*3/?L. The reference range was not used to interpret this result as normal/abnormal. GRAN MAT (NEUT) % (test code = 770-8) 65.3 % IMM GRAN % (test code = 2943125031) 0.50 % LYMPH % (test code = 736-9) 26.1 % MONO % (test code = 5905-5) 7.1 % EOS % (test code = 713-8) 0.5 % BASO % (test code = 706-2) 0.5 % GRAN MAT x10^3(ANC) (test code = 4111767562) 4.04 10*3/uL 1.5-10.3 IMM GRAN x10^3 (test code = 0349585279) 0.03 10*3/uL 0-0.06 LYMPH x10^3 (test code = 731-0) 1.61 10*3/uL 0.7-7.4 MONO x10^3 (test code = 742-7) 0.44 10*3/uL 0-0.5 EOS x10^3 (test code = 711-2) 0.03 10*3/uL 0-0.4 BASO x10^3 (test code = 704-7) 0.03 10*3/uL 0-0.1 Lab Interpretation (test code = 39157-9) Abnormal [facility] CenterProtein CREAT Ratio Urine [id number] 17:46:00* Test Item Value Reference Range Interpretation Comme nts T. PROT U (test code = 2888-6) 13 mg/dL CREAT U (test code = 5143501528) 178.9 mg/dL Protein/Creatinine Ratio Uri ne (test code = 1886120897) 0.0-2.0 [facility] CenterGALV ONLY - SYPHILIS [id number] 15:26:00* Test Item Value Reference Range Interpretation Comme nts Syphilis IgG/IgM (test code = 36278-2) Non-reactive Non-reactive JOYCE (test code = JOYCE) Non-reactive - No serologic evidence of T. pallidum infection. Cannot exclude incubating or early syphilis. Submit a second specimen in 2-4 weeks if syphilis is clinically suspected. Equivocal - Further testing to follow. Reactive - Further testing to follow. Lab Interpretation (test code = 18572-6) Normal [facility] CenterHepatitis B Surface [id number] 14:09:00 * Test Item Value Reference Range Interpretation Comme nts HBsAg Semi-Quantitative (tara t code = 5195-3) Negative Negative [facility] CenterType and Screen - ONCE [id number] 13:36:08 * Test Item Value Reference Range Interpretation Comme nts ABO & RH (test code = 20) O POSITIVE [facility] - [facility] Blood [address] [address] Free: [phone] No. [id number] IAT (test code = 1185) Negative [facility] Laboratory [facility] - [facility] Blood [address] [address] Free: [phone] No. [id number] [facility] CenterPOCT URINALYSIS W SPECIFIC [id number] 17:37:00* Test Item Value Reference Range Interpretation Comme nts POCT U SP GRAV (test code = 3255) . 1.005-1.025 POCT PH U (test code = 3254) . 5-8 POCT U LEUK EST (test code = 3263) . Negative - N egative POCT U NIT (test code = 3262) . Negative - Negati ve POCT U PROT (test code = 3259) Trace Negative - Negat mat POCT U GLU (test code = 3256) Neg Negative - Negati ve POCT U KETONE (test code = 3258) . Negative - Neg ative POCT U UROBILI (test code = 3260) . 0.2-1 POCT U BILI (test code = 3261) . Negative - Negat mat POCT U BLD (test code = 3257) . Negative - Negati ve POCT U COLOR (test code = 3266) POCT U APPEAR (test code = 3267) [facility] URINALYSIS W SPECIFIC [id number] 19:01:00* Test Item Value Reference Range Interpretation Comme nts POCT U SP GRAV (test code = 3255) . 1.005-1.025 POCT PH U (test code = 3254) . 5-8 POCT U LEUK EST (test code = 3263) . Negative - Negative POCT U NIT (test code = 3262) . Negative - Negati ve POCT U PROT (test code = 3259) trace Negative - Negat mat POCT U GLU (test code = 3256) negative Negative - Negati ve POCT U KETONE (test code = 3258) . Negative - Neg ative POCT U UROBILI (test code = 3260) . 0.2-1 POCT U BILI (test code = 3261) . Negative - Negat mat POCT U BLD (test code = 3257) . Negative - Negati ve POCT U COLOR (test code = 3266) POCT U APPEAR (test code = 3267) [facility] URINALYSIS W SPECIFIC [id number] 15:30:00* Test Item Value Reference Range Interpretation Comme nts POCT U SP GRAV (test code = 3255) . 1.005-1.025 POCT PH U (test code = 3254) . 5-8 POCT U LEUK EST (test code = 3263) . Negative - N egative POCT U NIT (test code = 3262) . Negative - Negati ve POCT U PROT (test code = 3259) Trace Negative - Negat mat POCT U GLU (test code = 3256) Neg Negative - Negati ve POCT U KETONE (test code = 3258) . Negative - Neg ative POCT U UROBILI (test code = 3260) . 0.2-1 POCT U BILI (test code = 3261) . Negative - Negat mat POCT U BLD (test code = 3257) . Negative - Negati ve POCT U COLOR (test code = 3266) POCT U APPEAR (test code = 3267) [facility] URINALYSIS W SPECIFIC [id number] 21:17:00* Test Item Value Reference Range Interpretation Comme nts POCT U SP GRAV (test code = 3255) . 1.005-1.025 POCT PH U (test code = 3254) . 5-8 POCT U LEUK EST (test code = 3263) . Negative - N egative POCT U NIT (test code = 3262) . Negative - Negati ve POCT U PROT (test code = 3259) Trace Negative - Negat mat POCT U GLU (test code = 3256) Neg Negative - Negati ve POCT U KETONE (test code = 3258) . Negative - Neg ative POCT U UROBILI (test code = 3260) . 0.2-1 POCT U BILI (test code = 3261) . Negative - Negat mat POCT U BLD (test code = 3257) . Negative - Negati ve POCT U COLOR (test code = 3266) POCT U APPEAR (test code = 3267) [facility] CenterFIRST TRIMESTER TRISOMY [id number] 20:22:00* Test Item Value Reference Range Interpretation Comme nts CRL (test code = 9185884953) 50 mm GEST. AGE (test code = 3738778469) 12,1 INS. DEP (test code = 5789607175) No MULT GEST (test code = 2006630371) No NT (test code = 7870926637) 1.80 mm NTD HX (test code = 9525881046) No RACE (test code = 6635450356) PROJECT CONTROL ANALYST (test code = 6149061704) BHCG MoM (test code = 1710873913) CRL GEST (test code = 1670589110) 11 weeks 5 days, from CRL of 50.0 mm on 04/13/19 EQ AGE RSK (test code = 4936982458) < 15.0 less than that o f a 15.0 year old DS APR (test code = 5159130128) 1:1080 DS INTERP (test code = 3630727413) See Note The risk of Down syndrome is LESS than the screening cut-off. DS RSK (test code = 5535635440) 1:1930 The risk at [facility] le time is equal to 1:1930 DS SCRN (test code = 0139057860) Negative TRISOMY 18 (test code = 2173909562) See Note The risk of [place] b[place] 18 is less than the screening cut-off. ES RSK (test code = 6828445818) ~ 1:89668 The risk of [place] ben 18 is approximately 1:32544Fxu Trisomy 18 cut-off is 1:133 ES SCRN (test code = 3665235635) Negative NT MoM (test code = 7088496298) BHCG DOWNS (test code = 7934986500) INTERPRETATION (test code = 8904434120) N INTERPRETATIO N: SCREEN NEGATIVE Down Syndrome and Trisomy 18 DANIELLE-A (test code = 4293924408) 625.3 ng/mL DANIELLE-A MoM (test code = 1870498616) US DATE (test code = 3883932015) WEIGHT (test code = 0787071061) lbs SMOKER (test code = 2286642993) No [facility] Center[facility] UR[facility] W/O SPECIFIC [id number] 20:36:00* Test Item Value Reference Range Interpretation Comme nts POCT PH U (test code = 3254) 7 mg/dl 5-8 POCT U LEUK EST (test code = 3263) Trace Negative - Negative POCT U NIT (test code = 3262) Neg Negative - Negati ve POCT U PROT (test code = 3259) Trace Negative - Negat mat POCT U GLU (test code = 3256) Neg Negative - Negati ve POCT U KETONE (test code = 3258) None Negative - Neg ative POCT U BLD (test code = 3257) Neg Negative - Negati ve [facility] CenterPOCT [id number] 20:34:00* Test Item Value Reference Range Interpretation Comme nts POCT PREG (test code = 1605) Positive On board controls acceptable with C Line (test code = 3574) Yes POCT PREG LOT # (test code = 3575) POCT PREG TEST DATE ( test code = 3576) [facility] Notes Date/Time Note Provider Source 2023-03-26 16:15:07 Formatting of this n ote might be different from the original. Will mail patient letter, thank you. [facility] Kathryn Boudreaux [facility] 2023-03-26 13:34:01 Formatting of this n ote might be different from the original. Attempt #3, pt DNA and a VM was left for pt. Will sent pt a letter after 3 failed attempts by phone and no active mychart. [facility] 2023-03-26 10:09:55 Formatting of this n ote might be different from the original. Attempt #2, pt DNA and a VM was left [facility] 2023-03-25 10:19:39 Formatting of this n ote might be different from the original. Attempt #1, pt DNA and a VM was left [facility] 2023-03-24 21:22:42 Formatting of this n ote might be different from the original. Patient's lab is showing low hemoglobin level of 9.1. Patient needs to begin iron therapy PO daily, eat iron rich foods such as meat, eggs, dark green leafy vegetables, beans and limit milk intake. Erx sent. Also advise patient not to take iron the same time of day as vitamins. Thank you! [facility]"
[2024-10-23] MEDS ORDERED: ACETAMINOPHEN 500 MG TAB ONE ×2 (07:27→07:30)
[2024-10-23] MEDS ORDERED: KETOROLAC 30 MG/ML INJ ONE (07:28)
[2024-10-23] MEDS ORDERED: DIAZEPAM 5 MG TABLET ONE (07:28)
[2024-10-23] MEDS ORDERED: LIDOCAINE 4% PATCH ONE (07:28)
--- NOTE | 2024-10-23 08:39 | ER ---
Nurse's Notes [facility] Name: Mary William Age: 24 yrs Sex: Female : 2000 Arrival Date: 10/23/2024 Time: 05:59 Bed 11 Private MD: Diagnosis: Sciatica Presentation: 10/23 06:10 Chief complaint: Patient states: LOWER BACK PAIN, IT GETS WORSE WITH MOVEMENT. ha1 06:10 Coronavirus screen: Client denies travel out of the [place] in the last 14 days. Ebola ha1 Screen: No symptoms or risks identified at this time. Initial Sepsis Screen: Does the patient meet any 2 criteria? No. Patient's initial sepsis screen is negative. Does the patient have a suspected source of infection? No. Patient's initial sepsis screen is negative. Risk Assessment: Do you want to hurt yourself or someone else? Patient reports no desire to harm self or others. Onset of symptoms was October 23, 2024. 06:10 Method Of Arrival: Wheelchair ha1 06:10 Acuity: JUANPABLO 4 ha1 Triage Assessment: 06:10 General: Appears uncomfortable, Behavior is cooperative. Pain: Complains of pain in ha1 coccyx Pain currently is 9 out of 10 on a pain scale. Neuro: Level of Consciousness is awake, alert, obeys commands, Oriented to person, place, time, situation. Cardiovascular: Patient's skin is warm and dry. Respiratory: Airway is patent Respiratory effort is even, unlabored, Respiratory pattern is regular, symmetrical. GI: No signs and/or symptoms were reported involving the gastrointestinal system. Musculoskeletal: Circulation, motion, and sensation intact. Reports pain in coccyx. Historical: - Allergies: 06:25 No Known Allergies; ha1 - PMHx: 06:25 None; ha1 - Immunization history:: Adult Immunizations up to date. - Infectious Disease History:: Denies. - Social history:: Smoking status: Patient denies any tobacco usage or history of. Screenin:26 Abuse screen: Denies threats or abuse. Denies injuries from another. Nutritional ha1 screening: No deficits noted. Tuberculosis screening: No symptoms or risk factors identified. 07:15 [facility] ED Fall Risk Assessment (Adult) History of falling in the last 3 months, hb including since admission No falls in past 3 months (0 pts) Confusion or Disorientation No (0 pts) Intoxicated or Sedated No (0 pts) Impaired Gait Yes (1 pt) Mobility Assist Device Used No (0 pt) Altered Elimination No (0 pt) Score/Fall Risk Level 0 - 2 = Low Risk Oriented to surroundings, Maintained a safe environment, Educated pt \T\ family on fall prevention, incl call for assistance when getting out of bed. Assessment: 08:55 Reassessment: Patient appears in no apparent distress at this time. Patient and/or hb family updated on plan of care and expected duration. Pain level reassessed. Patient is alert, oriented x 3, equal unlabored respirations, skin warm/dry/pink. Vital Signs: 06:10 BP 123 / 72; Pulse 72; Resp 17 S; Temp 97.9(T); Pulse Ox 100% on R/A; Weight 63.5 kg; ha1 Height 5 ft. 5 in. ; Pain 9/10; 06:10 Body Mass Index 23.30 (63.50 kg, 165.1 cm) ha1 06:10 Pain Scale: Adult ha1 ED Course: 06:02 Patient arrived in ED. gm2 06:25 Triage completed. ha1 07:03 Lupillo Burnett MD is Attending Physician. ec2 07:15 Patient has correct armband on for positive identification. Provided Education on: hb medications. 07:15 No provider procedures requiring assistance completed. Patient did not have IV access hb during this emergency room visit. 08:55 Juanita Marmolejo, RN is Primary Nurse. hb Administered Medications: 07:35 Drug: Lidoderm Topical Patch 5 % (700 mg/patch) 1 patches Topical once; leave on for 12 hb hours; cover most painful area; may cut into smaller pieces Route: Topical; Site: affected area; 08:55 Follow up: Response: No adverse reaction hb 07:51 Drug: Ketorolac IM 30 mg IM once Route: IM; Site: right ventrogluteal; hb 08:55 Follow up: Response: No adverse reaction hb 07:51 Drug: Acetaminophen PO 1000 mg PO once Route: PO; hb 08:55 Follow up: Response: No adverse reaction hb 07:52 Drug: Diazepam PO 10 mg PO once Route: PO; hb 08:55 Follow up: Response: No adverse reaction hb Medication: 08:55 VIS not applicable for this client. hb Outcome: 08:39 Discharge ordered by . [email or web address] 08:58 Discharged to home ambulatory, with family, 08:58 Condition: stable 08:58 Discharge instructions given to patient, family, Instructed on discharge instructions, follow up and referral plans. medication usage, Demonstrated understanding of instructions, follow-up care, medications, Prescriptions given X :58 Patient left the ED. Signatures: Juanita Marmolejo RN RN Iona Somers RN RN ha1 Lupillo Burnett MD MD ec2 Nita Beckford 2
--- NOTE | 2024-10-23 08:39 | EDPHYS ---
Physician Documentation [facility] Name: Mary William Age: 24 yrs Sex: Female : 2000 Arrival Date: 10/23/2024 Time: 05:59 Bed 11 Private MD: ED Physician Lupillo Burnett HPI: 10/23 07:13 This 24 yrs old Female presents to ER via Wheelchair with complaints of Low ec2 Back Pain, Leg Pain. 07:13 Patient arrives today for low back pain rating to the bilateral legs is worse with ec2 movement. Went to bed feeling okay. Woke up at pain rating to the bilateral legs. No falls injuries or traumas recently. No concerning red flag symptoms.. Historical: - Allergies: 06:25 No Known Allergies; ha1 - PMHx: 06:25 None; ha1 - Immunization history:: Adult Immunizations up to date. - Infectious Disease History:: Denies. - Social history:: Smoking status: Patient denies any tobacco usage or history of. ROS: 07:14 Constitutional: as per hpi ec2 Exam: 07:14 Constitutional: GEN: NAD Head: atraumatic Eyes: EOMI Ears: External ears are ec2 normal. CV: regular rate LUNGS: no respiratory distress ABD: non-distended SKIN: no evidence of rashes MSK: no evidence of trauma, bilateral positive straight leg raise test Vital Signs: 06:10 BP 123 / 72; Pulse 72; Resp 17 S; Temp 97.9(T); Pulse Ox 100% on R/A; Weight 63.5 kg; ha1 Height 5 ft. 5 in. ; Pain 9/10; 06:10 Body Mass Index 23.30 (63.50 kg, 165.1 cm) ha1 06:10 Pain Scale: Adult ha1 MDM: 07:03 Medical Screening Exam initiated ec2 07:14 Data reviewed: vital signs, nurses notes. ED course: Patient arrives today for low back ec2 pain going into the legs. Examination yields MSK findings as above. Suspect sciatica, will treat with medications. DDx considered include processes such as fracture as well as spinal cord pathology. Will forego any advanced imaging such as CT of the L-spine or MRI of the L-spine given lack of concerning features.. 08:38 ED course: On reassessment patient with marked improvement in symptoms. Will discharge ec2 home. Return precautions given.. Administered Medications: 07:35 Drug: Lidoderm Topical Patch 5 % (700 mg/patch) 1 patches Topical once; leave on for 12 hb hours; cover most painful area; may cut into smaller pieces Route: Topical; Site: affected area; 08:55 Follow up: Response: No adverse reaction hb 07:51 Drug: Ketorolac IM 30 mg IM once Route: IM; Site: right ventrogluteal; hb 08:55 Follow up: Response: No adverse reaction hb 07:51 Drug: Acetaminophen PO 1000 mg PO once Route: PO; hb 08:55 Follow up: Response: No adverse reaction hb 07:52 Drug: Diazepam PO 10 mg PO once Route: PO; hb 08:55 Follow up: Response: No adverse reaction hb Disposition Summary: 10/23/24 08:39 Discharge Ordered Notes: Location: Home ec2 Condition: Stable ec2 Diagnosis - Sciatica ec2 Followup: ec2 - With: Private Physician - When: - Reason: Re-evaluation by your physician Discharge Instructions: - Discharge Summary Sheet ec2 - Sciatica, [id number] ec2 Forms: - Work release form ec2 - Medication Reconciliation Form ec2 - Antibiotic Education ec2 - Prescription Opioid Use ec2 - Patient Portal Instructions ec2 - Leadership Thank You Letter ec2 Prescriptions: - methocarbamol 500 mg Oral tablet - take 1 tablet ORAL route 4 times per day; 20 tablet; Refills: 0, Product ec2 Selection Permitted Signatures: Juanita Marmolejo RN RN Iona Somers RN RN ha1 Lupillo Burnett MD MD ec2
[2024-10-23 09:08] VITALS: BP 123/72; TEMP 97.9; O2SAT 100
== END 2024-10-23 08:58 | disposition home or self-care (01) ==
LOC: ER 05:59
DX: M54.30 Sciatica, unspecified side (principal)
CPT/HCPCS: 96372; 99284; J2003